=== PATIENT | female | born 1985 | race Hispanic/Latino ===

== ENCOUNTER 2019-08-26 23:51 | Emergency (ER) | payer OTHER | END 2019-08-27 01:00 | disposition home or self-care (01) | LOC: ER 23:51 | PROC: 0JQJ0ZZ Repair Right Hand Subcutaneous Tissue and Fascia, Open Approach (ICD-10-PCS; principal; 2019-08-27) | DX: S61.011A Laceration without foreign body of right thumb without damage to nail, initial encounter (principal); W45.8XXA Other foreign body or object entering through skin, initial encounter; Y93.89 Activity, other specified; Y92.009 Unspecified place in unspecified non-institutional (private) residence as the place of occurrence of the external cause; Z23 Encounter for immunization | CPT/HCPCS: 90471; 90714; 99283 ==

== ENCOUNTER 2020-01-08 23:26 | Inpatient (IN) | payer OTHER, SELFPAY ==
[2020-01-09 00:22] LABS: Urine Blood NEGATIVE (NEG); Urine Glucose NEGATIVE (NEG); Urine Protein NEGATIVE (NEG); Urine Specific Gravity >1.030 (1.005-1.030)
[2020-01-09] MEDS ORDERED: NA CHLORIDE 0.9% 1,000 ML ONE ×2 (00:26→11:57)
[2020-01-09] MEDS ORDERED: ONDANSETRON 4 MG/2 ML VIAL ONE (00:26)
[2020-01-09] MEDS ORDERED: FAMOTIDINE 20 MG/2 ML VIAL IV ONE (00:26)
[2020-01-09] MEDS ORDERED: MORPHINE 4 MG/ML SYR ONE ×2 (00:26→07:37)
[2020-01-09 00:27] LABS: Absolute Lymphocytes (CBC) 2.5 K/uL (0.7-4.9); Basophils % 0.4 % (0-1.3); Hematocrit 38.9 % (36.0-45.0); Lymphocytes % 20.7 % (15.3-44.8); MPV 8.6 fL (7.6-11.3); RBC Red Blood Cell Count 4.89 M/uL (3.86-4.86)
[2020-01-09 00:56] LABS: ALT/SGPT 31 U/L (12-78); AST/SGOT 22 U/L (15-37); Albumin 3.4 g/dL (3.4-5.0); Alkaline Phosphatase 104 U/L (45-117); BUN Blood Urea Nitrogen 11 mg/dL (7-18); Bicarbonate 29 mmol/L (21-32); Bilirubin Direct 0.1 mg/dL (0-0.2); Bilirubin Total 0.3 mg/dL (0.2-1.0); Glucose Level 126 mg/dL (74-106); Lipase 19762 U/L (73-393); Potassium 3.8 mmol/L (3.5-5.1); Protein, Total 7.9 g/dL (6.4-8.2); Sodium Level 139 mmol/L (136-145)
--- NOTE | 2020-01-09 02:30 | EDPHYS ---
Physician Documentation [facility] Name: Feliciano Blair Age: 34 yrs Sex: Female : 1985 Arrival Date: 01/08/2020 Time: 23:29 Bed 14 Private MD: ED Physician Ravi Singer HPI: 01/08 00:10 This 34 yrs old Female presents to ER via Ambulatory with complaints of mh7 Abdominal Pain. 00:10 The patient presents with abdominal pain in the upper abdomen. Onset: The mh7 symptoms/episode began/occurred today. The symptoms radiate to right back. Associated signs and symptoms: Pertinent negatives: nausea, vomiting, and diarrhea, anorexia, blood in stools, chest pain, constipation, diarrhea, dysuria, fever, headache, hematuria, nausea, palpitations, shortness of breath, vaginal discharge, vomiting, vomiting blood. The symptoms are described as intermittent, vague, waxing/waning. Modifying factors: The symptoms are alleviated by nothing, the symptoms are aggravated by food. Severity of pain: At its worst the pain was moderate today, in the emergency department the pain is unchanged. 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 - Social history:: Smoking status: Patient/guardian denies using. ROS: 01/08 00:10 Constitutional: Negative for fever, chills, and weight loss, Eyes: Negative for injury, mh7 pain, redness, and discharge, ENT: Negative for injury, pain, and discharge, Neck: Negative for injury, pain, and swelling, Cardiovascular: Negative for chest pain, palpitations, and edema, Respiratory: Negative for shortness of breath, cough, wheezing, and pleuritic chest pain, : Negative for injury, bleeding, discharge, and swelling, MS/Extremity: Negative for injury and deformity, Skin: Negative for injury, rash, and discoloration, Neuro: Negative for headache, weakness, numbness, tingling, and seizure, Psych: Negative for depression, anxiety, suicide ideation, homicidal ideation, and hallucinations, Allergy/Immunology: Negative for hives, rash, and allergies, Endocrine: Negative for neck swelling, polydipsia, polyuria, polyphagia, and marked weight changes, Hematologic/Lymphatic: Negative for swollen nodes, abnormal bleeding, and unusual bruising. Exam: 00:10 Head/Face: Normocephalic, atraumatic. Neck: Trachea midline, no thyromegaly or masses mh7 palpated, and no cervical lymphadenopathy. Supple, full range of motion without nuchal rigidity, or vertebral point tenderness. No Meningismus. Chest/axilla: Normal chest wall appearance and motion. Nontender with no deformity. No lesions are appreciated. Cardiovascular: Regular rate and rhythm with a normal S1 and S2. No gallops, murmurs, or rubs. Normal PMI, no JVD. No pulse deficits. Respiratory: Lungs have equal breath sounds bilaterally, clear to auscultation and percussion. No rales, rhonchi or wheezes noted. No increased work of breathing, no retractions or nasal flaring. 00:10 Back: No spinal tenderness. No costovertebral tenderness. Full range of motion. Skin: Warm, dry with normal turgor. Normal color with no rashes, no lesions, and no evidence of cellulitis. MS/ Extremity: Pulses equal, no cyanosis. Neurovascular intact. Full, normal range of motion. Neuro: Awake and alert, GCS 15, oriented to person, place, time, and situation. Cranial nerves II-XII grossly intact. Motor strength 5/5 in all extremities. Sensory grossly intact. Cerebellar exam normal. Normal gait. Psych: Awake, alert, with orientation to person, place and time. Behavior, mood, and affect are within normal limits. 00:10 Constitutional: The patient appears in no acute distress, alert, awake, uncomfortable. 00:10 Abdomen/GI: Inspection: obese scar(s), are noted in the epigastric area, Bowel sounds: normal, in all quadrants, Palpation: moderate abdominal tenderness, in the epigastric area and right upper quadrant, Rectal exam: the exam is deferred, because of patient request, Indicators: McBurney's point is not tender, Hanley's sign is negative, Rovsing's sign is negative, Obturator sign is negative, Psoas sign is negative, Liver: no appreciated palpable abnormalities, Hernia: not appreciated. Vital Signs: 01/07 23:43 BP 125 / 66; Pulse 87; Resp 18; Temp 98.2; Pulse Ox 100% ; Weight 104.78 kg; Height 5 wh ft. 5 in. (165.10 cm); Pain 12/28; 01/08 01:17 BP 103 / 61; Pulse 55; Resp 18; Pulse Ox 99% on R/A; wh 02:27 BP 104 / 75; Pulse 47; Resp 18; Pulse Ox 99% on R/A; Pain 05/30; wh 04:00 BP 92 / 57; Pulse 46; Resp 16; Pulse Ox 98% on R/A; Pain 05/30; wh 05:30 BP 103 / 70; Pulse 52; Resp 18; Pulse Ox 99% on R/A; Pain 05/30; wh 01/07 23:43 Body Mass Index 38.44 (104.78 kg, 165.10 cm) wh MDM: 00:10 Patient medically screened. [facility] 02:27 Differential diagnosis: bowel obstruction, cholecystitis, Cholelithiasis, mh7 diverticulitis, Ectopic , gastritis, gastroesophageal reflux disease, non-specific abd pain, pancreatitis, Peptic Ulcer Disease, Perf. Duodenal Ulcer, Perf. Gastric Ulcer, Pyelonephritis, Ureterolithiasis, urinary tract infection. Data reviewed: vital signs, nurses notes, radiologic studies, CT scan. Data interpreted: Pulse oximetry: on room air is 99 %. Interpretation: normal. Counseling: I had a detailed discussion with the patient and/or guardian regarding: the historical points, exam findings, and any diagnostic results supporting the discharge/admit diagnosis, lab results, radiology results, the need for further work-up and treatment in the hospital. Response to treatment: the patient's symptoms have markedly improved after treatment. 01/08 00:07 Order name: Basic Metabolic Panel; Complete Time: 01/08 00:07 Order name: CBC with Diff; Complete Time: 01/08 00:07 Order name: Hepatic Function; Complete Time: wh 01/08 00:07 Order name: Lipase; Complete Time: : wh 01/08 00:09 Order name: Urine --Ancillary (enter results); Complete Time: : tt3 01/08 00:09 Order name: Urine Dipstick--Ancillary (enter results); Complete Time: 01:06 tt3 01/08 00:07 Order name: IV Saline Lock; Complete Time: 00:08 01/08 00:07 Order name: Labs collected and sent; Complete Time: 00:08 01/08 01:07 Order name: CT Abd/Pelvis - IV Contrast Only [facility] 01/08 08:42 Order name: EDMS 01/08 00:07 Order name: Urine Dipstick-Ancillary (obtain specimen); Complete Time: 00:08 01/08 00:07 Order name: Urine Test (obtain specimen); Complete Time: 00:08 Administered Medications: 00:14 Drug: NS 0.9% 1000 ml Route: IV; Rate: 1000 ml; Site: right antecubital; 02:28 Follow up: Response: No adverse reaction; IV Status: Completed infusion 00:16 Drug: morphine 4 mg Route: IVP; Site: right antecubital; 02:28 Follow up: Response: No adverse reaction; Pain is decreased; RASS: Alert and Calm (0) 00:18 Drug: Zofran (Ondansetron) 4 mg Route: IVP; Site: right antecubital; 02:28 Follow up: Response: No adverse reaction 00:20 Drug: Pepcid 20 mg Route: IVP; Site: right antecubital; 02:27 Follow up: Response: No adverse reaction Disposition: 06:44 Co-signature as Attending Physician, Ravi Singer MD. 7 Disposition: 01/09/20 02:29 Hospitalization ordered by Newton Concepcion for Inpatient Admission. Preliminary diagnosis is Acute pancreatitis, unspecified. - Bed requested for Telemetry/MedSurg (Inpatient). - Status is Inpatient Admission. jr10 - Condition is Stable. - Problem is new. - Symptoms have improved. Signatures: Dispatcher [employer] EDMS Tiara Jeter Tonya, RN RN tl1 Andrea Cochran Ravi Singer MD MD 7 Jamila Gregg RN RN jr10 Corrections: (The following items were deleted from the chart) 04:03 02:29 Hospitalization Ordered by Newton Concepcion for Inpatient Admission. Preliminary tl1 diagnosis is Acute pancreatitis, unspecified. Bed requested for Telemetry/MedSurg (Inpatient). Status is Inpatient Admission. Condition is Stable. Problem is new. Symptoms have improved. mh7 13:42 04:03 01/09/2020 02:29 Hospitalization Ordered by Newton Concepcion for Inpatient bd Admission. Preliminary diagnosis is Acute pancreatitis, unspecified. Bed requested for [facility] ER HOLD. Status is Inpatient Admission. Condition is Stable. Problem is new. Symptoms have improved. tl1 14:42 13:42 01/09/2020 02:29 Hospitalization Ordered by Newton Concepcion for Inpatient jr10 Admission. Preliminary diagnosis is Acute pancreatitis, unspecified. Bed requested for Telemetry/MedSurg (Inpatient). Status is Inpatient Admission. Condition is Stable. Problem is new. Symptoms have improved. bd
--- NOTE | 2020-01-09 02:30 | ER ---
Nurse's Notes [facility] Name: Feliciano Blair Age: 34 yrs Sex: Female : 1985 Arrival Date: 01/08/2020 Time: 23:29 Bed 14 Private MD: Diagnosis: Acute pancreatitis, unspecified Presentation: 01/07 23:43 Chief complaint: Patient states: upper abdominal pain going to the back that started wh after dinner tonight. Pt denies chest pain or any other associated symptoms. Coronavirus screen: Client denies travel out of the [place] in the last 14 days. At this time, the client does not indicate any symptoms associated with coronavirus-19. Ebola Screen: Patient negative for fever greater than or equal to 101.5 degrees Fahrenheit, and additional compatible Ebola Virus Disease symptoms Patient denies exposure to infectious person. Initial Sepsis Screen: Does the patient meet any 2 criteria? No. Patient's initial sepsis screen is negative. Does the patient have a suspected source of infection? Yes: Acute abdominal pain. Risk Assessment: Do you want to hurt yourself or someone else? Patient reports no desire to harm self or others. Onset of symptoms was January 08, 2020. 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 - Social history:: Smoking status: Patient/guardian denies using. Screenin:46 Abuse screen: Denies threats or abuse. Denies injuries from another. Nutritional screening: No deficits noted. Tuberculosis screening: No symptoms or risk factors identified. Fall Risk None identified. Assessment: 23:47 General: Appears in no apparent distress. uncomfortable, Behavior is calm, cooperative, wh appropriate for age. Pain: Complains of pain in epigastric area and right upper quadrant Pain radiates to back Pain currently is 8 out of 10 on a pain scale. Quality of pain is described as pressure, Pain began 4 hours ago. Neuro: Level of Consciousness is awake, alert, obeys commands, Oriented to person, place, time, situation, Appropriate for age. Cardiovascular: Heart tones S1 S2. Respiratory: Airway is patent Respiratory effort is even, unlabored, Respiratory pattern is regular, symmetrical, Breath sounds are clear bilaterally. GI: Abdomen is flat, non-distended, Bowel sounds present X 4 quads. Abd is soft Abdomen is tender to palpation in epigastric area and right upper quadrant. : No signs and/or symptoms were reported regarding the genitourinary system. EENT: No signs and/or symptoms were reported regarding the EENT system. Derm: Skin is intact, is healthy with good turgor, Skin is pink, warm \T\ dry. normal. Musculoskeletal: Circulation, motion, and sensation intact. 01/08 01:18 Reassessment: Patient appears in no apparent distress at this time. No changes from previously documented assessment. Patient and/or family updated on plan of care and expected duration. Pain level reassessed. Patient is alert, oriented x 3, equal unlabored respirations, skin warm/dry/pink. Patient states feeling better. Patient states symptoms have improved. 02:26 Reassessment: Patient appears in no apparent distress at this time. No changes from previously documented assessment. Patient and/or family updated on plan of care and expected duration. Pain level reassessed. Patient is alert, oriented x 3, equal unlabored respirations, skin warm/dry/pink. Provider at bedside explaining POC need for admit. Pt states low heart rate is normal for her. 04:00 Reassessment: Patient appears in no apparent distress at this time. No changes from previously documented assessment. Patient and/or family updated on plan of care and expected duration. Pain level reassessed. Patient is alert, oriented x 3, equal unlabored respirations, skin warm/dry/pink. 05:30 Reassessment: Patient appears in no apparent distress at this time. No changes from previously documented assessment. Patient and/or family updated on plan of care and expected duration. Pain level reassessed. Patient is alert, oriented x 3, equal unlabored respirations, skin warm/dry/pink. ER MD was notified regarding low heart rate with no orders made Patient states feeling better. Patient states symptoms have improved. Vital Signs: 01/07 23:43 BP 125 / 66; Pulse 87; Resp 18; Temp 98.2; Pulse Ox 100% ; Weight 104.78 kg; Height 5 wh ft. 5 in. (165.10 cm); Pain 8/10; 01/08 01:17 BP 103 / 61; Pulse 55; Resp 18; Pulse Ox 99% on R/A; 02:27 BP 104 / 75; Pulse 47; Resp 18; Pulse Ox 99% on R/A; Pain 1/10; 04:00 BP 92 / 57; Pulse 46; Resp 16; Pulse Ox 98% on R/A; Pain 1/10; 05:30 BP 103 / 70; Pulse 52; Resp 18; Pulse Ox 99% on R/A; Pain 1/10; wh 01/07 23:43 Body Mass Index 38.44 (104.78 kg, 165.10 cm) ED Course: 01/07 23:29 Patient arrived in ED. [facility] 23:43 Andrea Cochran is Primary Nurse. 23:45 Triage completed. 23:49 Arm band placed on right wrist. 23:49 Patient has correct armband on for positive identification. Placed in gown. Bed in low wh position. Call light in reach. Side rails up X 1. Pulse ox on. NIBP on. 23:50 Inserted saline lock: 20 gauge in right antecubital area, using aseptic technique. Blood collected. 23:55 Ravi Singer MD is Attending Physician. [facility] 01/08 01:47 CT Abd/Pelvis - IV Contrast Only In Process Unspecified. EDDC 02:29 Newton Concepcion is Hospitalizing Provider. [facility] 04:05 Patient admitted, IV remains in place. 04:05 No provider procedures requiring assistance completed. Administered Medications: 00:14 Drug: NS 0.9% 1000 ml Route: IV; Rate: 1000 ml; Site: right antecubital; 02:28 Follow up: Response: No adverse reaction; IV Status: Completed infusion 00:16 Drug: morphine 4 mg Route: IVP; Site: right antecubital; 02:28 Follow up: Response: No adverse reaction; Pain is decreased; RASS: Alert and Calm (0) 00:18 Drug: Zofran (Ondansetron) 4 mg Route: IVP; Site: right antecubital; 02:28 Follow up: Response: No adverse reaction 00:20 Drug: Pepcid 20 mg Route: IVP; Site: right antecubital; 02:27 Follow up: Response: No adverse reaction Outcome: 02:29 Decision to Hospitalize by Provider. [facility] 04:05 Admitted to ER Hold. Please see [facility] for further documentation. 04:05 Condition: stable 04:05 Instructed on the need for admit. 14:42 Patient left the ED. jr10 Signatures: Dispatcher [employer] EDMS Andrea Cochran Razia West Maurice, MD MD mh7 Jamila Gregg RN RN jr10 Corrections: (The following items were deleted from the chart) 02:27 01:17 BP 136 / 1; Pulse 55bpm; Resp 18bpm; Pulse Ox 99% RA; [facility] 05:46 02:26 Reassessment: Patient appears in no apparent distress at this time. No changes wh from previously documented assessment. Patient and/or family updated on plan of care and expected duration. Pain level reassessed. Patient is alert, oriented x 3, equal unlabored respirations, skin warm/dry/pink. Provider at bedside explaining POC need for admit 05:46 02:27 BP 104 / 75; Pulse 47bpm; Resp 18bpm; Pulse Ox 99% RA; [facility] 05:46 01:17 BP 103 / 61; Pulse 55bpm; Resp 18bpm; Pulse Ox 99% RA; [facility] 05:46 04:00 BP 92 / 57; Pulse 46bpm; Resp 16bpm; Pulse Ox 98%; [facility] 06:09 05:30 Reassessment: Patient appears in no apparent distress at this time. No changes wh from previously documented assessment. Patient and/or family updated on plan of care and expected duration. Pain level reassessed. Patient is alert, oriented x 3, equal unlabored respirations, skin warm/dry/pink. Patient states feeling better. Patient states symptoms have improved.
--- NOTE | 2020-01-09 03:10 | P.HP ---
Certification for Inpatient Patient admitted to: Inpatient With expected LOS: >2 Midnights Patient will require the following post-hospital care: None Practitioner: I am a practitioner with admitting privileges, knowledge of patient current condition, hospital course, and medical plan of care. Services: Services provided to patient in accordance with Admission requirements found in Title 42 Section 412.3 of the Code of Federal Regulations Patient History Date of Service: 01/09/20 Primary Care Provider: [facility] Reason for admission: Acute pancreatitis History of Present Illness: 34-year-old female presents emergency for epigastric pain that began after eating lasagna. Patient with history of gastric sleeve in October of this year. Patient reports she has not been eating carbs since then but tonight for the 1st time he had some lasagna. During her evaluation in the emergency department patient was found to have elevated lipase at 19,000. CT scan shows some possible trace pericholecystic fluid but no stones or other signs of cholecystitis. LFTs all within normal limits, T. bili and d bili within normal limits. Patient does report that up until 2 years ago she was a heavy drinker. ED provider wishes to admit patient for further evaluation management. When I saw the patient in the emergency department she is awake, alert, oriented x4. Patient reports that morphine did help while the pain and she is only feeling some pressure now. Patient reports pain radiates to back. While ex amining patient in the emergency department she did not have any right upper quadrant tenderness, Hanley sign negative. Patient be admitted for further evaluation and management. Allergies No Known Drug Allergies Allergy (Unverified 01/29/15 08:49) Unknown - Past Medical/Surgical History Past Medical History: Patient denies medical history -: Gastric sleeve Psychosocial/ Personal History: Patient lives at home with her and children is currently unemployed. - Family History Father -: Diabetes Mother -: Diabetes - Social History Smoking Status: Never smoker Alcohol use: No CD- Drugs: No Caffeine use: Yes Place of Residence: Home Review of Systems 10-point ROS is otherwise unremarkable Gastrointestinal: Abdominal Pain Physical Examination - Physical Exam General: Alert, In no apparent distress HEENT: Atraumatic, PERRLA, Mucous membr. moist/pink Neck: Supple Respiratory: Clear to auscultation bilaterally, Normal air movement Cardiovascular: Regular rate/rhythm, Normal S1 S2 Capillary refill: <2 Seconds Gastrointestinal: Normal bowel sounds, No rebound, No guarding, Other (Hanley sign negative), Tenderness (Epigastric tenderness that is mild) Musculoskeletal: No tenderness Integumentary: No rashes Neurological: Normal gait, Normal speech, Normal strength at 5/5 x4 extr, Normal tone, Normal affect - Studies Laboratory Data (last 24 hrs) 01/09/20 00:01: WBC 12.0 H, Hgb 12.5, Hct 38.9, Plt Count 424 H 01/09/20 00:01: Sodium 139, Potassium 3.8, BUN 11, Creatinine 0.68, Glucose 126 H, Total Bilirubin 0.3, AST 22, ALT 31, Alkaline Phosphatase 104, Lipase 21353 H Assessment and Plan - Plan Assessment Acute pancreatitis Plan Acute pancreatitis: Patient made to be NPO. Aggressive hydration. Continue with IV pain medication and nausea medication as needed. Will order ultrasound to rule out biliary pancreatitis. Lipid panel also ordered. Suspect this is related to her history of alcohol abuse and cessation from ED carbohydrates with recent carbohydrate intake. Anticipate clinical improvement next 24-48 hr at which time patient to be discharged. DVT prophylaxis with Lovenox 40 mg subcutaneous once daily. Discharge Plan: Home Plan to discharge in: 48 Hours - Advance Directives Does patient have a Living Will: No Does patient have a Durable POA for Healthcare: No - Code Status/Comfort Care Code Status Assessed: Yes (Patient is full code) Critical Care: No Time Spent Managing Pts Care (In Minutes): 55
[2020-01-09] MEDS: NA CHLORIDE 0.9% 1,000 ML IV SCH ×3 (04:07→21:56)
[2020-01-09] MEDS ORDERED: ONDANSETRON 4 MG/2 ML VIAL IV PRN (04:07)
[2020-01-09 04:10] VITALS: BMI 38.4
[2020-01-09] MEDS ORDERED: ENOXAPARIN 40 MG/0.4 ML SQ ONE (07:38)
[2020-01-09] MEDS: MORPHINE 4 MG/ML SYR IV PRN ×2 (08:00→17:31)
--- NOTE | 2020-01-09 08:41 | RAD REPORT ---
EXAM DESCRIPTION: US - Abdomen Exam Limited - 01/09/2020 7:18 am CLINICAL HISTORY: R/O cholecystits/cholelithiasis Abdominal pain COMPARISON: Abdomen Pelvis W Contrast dated 01/09/2020 FINDINGS: The gallbladder demonstrates several shadowing gallstones. Gallbladder wall is mildly thic kened measuring 4-5 mm. The common bile duct is normal measuring 4 mm. The liver demonstrates no findings of intrahepatic biliary dilatation. IMPRESSION: Cholelithiasis is noted with mild gallbladder wall thickening. Early cholecystitis is a possibility, and correlation clinical Hanley's sign is suggested.
[2020-01-09] MEDS: ENOXAPARIN 40 MG/0.4 ML SQ SCH (08:49)
--- NOTE | 2020-01-09 10:55 | RAD REPORT ---
EXAM DESCRIPTION: CT Abdomen Pelvis W Contrast CLINICAL HISTORY: 34 years Female ABD PAIN TECHNIQUE: Contiguous axial images obtained through the abdomen and pelvis following intravenous con trast administration. Coronal and sagittal reformatted images provided. This CT exam was performed according to our departmental dose-optimization program, which includes on e or more of the following dose reduction techniques: automated exposure control, adjustment of the m A and/or kV according to patient size, and/or use of iterative reconstruction technique. COMPARISON: No prior exams provided for comparison. FINDINGS: There appears to be slight pericholecystic inflammation. No visualized gallstone or biliar y dilatation. There is a 2.2 cm right ovarian cyst. Normal left ovary and uterus. No free fluid in the cul-de-sac. Minimal left basilar atelectasis. Focal fatty infiltration of the liver along the falciform ligament. The pancreas, spleen, adrenal glands, kidneys, and urinary bladder are normal. Prior gastric sleeve surgery. No visualized bowel inflammation, obstruction, pneumatosis, free intrap eritoneal air, abscess, or ascites. Normal appendix. No acute osseous abnormality. IMPRESSION: Suspected slight pericholecystic inflammation. Correlate with LFTs and physical exam and consider further evaluation with right upper quadrant ultrasound. Small right ovarian cyst does not require follow-up. Electronically signed by: Peggy Bryant MD 01/09/2020 2:01 AM CDT Due to temporary technical issues with the PACS/Fluency reporting system, reports are being signed by the in house radiologist without review as a courtesy to ensure prompt reporting. The interpreting r adiologist is fully responsible for the content of the report.
--- NOTE | 2020-01-09 14:02 | P.PN ---
Date of Service: 01/09/20 Patient states her abdominal pain is better today. Right upper quadrant sonogram is reporting cholelithiasis and early cholecystitis. Borderline low blood pressure noted. Acute pancreatitis Acute Cholecystitis Cholelithiasis History of gastric sleeve surgery. Plan: IV hydration with normal saline. Pain management as needed. Consult general surgery requested. Keep NPO today. Check daily lipase level.
--- NOTE | 2020-01-09 21:36 | RAD REPORT ---
EXAM DESCRIPTION: MRICholangiogram01/09/2020 8:24 pm CLINICAL HISTORY: Abdominal pain TECHNIQUE: Magnetic resonance cholangiogram was performed.3D MIP reconstruction performed FINDINGS: A filling defect within gallbladder likely cholelithiasis. Gallbladder is borderline diste nded. The biliary tree is normal caliber without a filling defect. Pancreatic duct is normal caliber IMPRESSION: Filling defect within the gallbladder probably cholelithiasis. Borderline gallbladder di stention
[2020-01-10] MEDS: MORPHINE 4 MG/ML SYR IV PRN (01:06)
[2020-01-10] MEDS: NA CHLORIDE 0.9% 1,000 ML IV SCH ×2 (04:23→12:00)
[2020-01-10] MEDS: PANTOPRAZOLE 40 MG INJ IVP SCH (05:02)
[2020-01-10 06:12] LABS: Absolute Lymphocytes (CBC) 2.2 K/uL (0.7-4.9); Basophils % 0.4 % (0-1.3); Hematocrit 32.1 % (36.0-45.0); Lymphocytes % 31.8 % (15.3-44.8); MPV 8.3 fL (7.6-11.3); RBC Red Blood Cell Count 4.03 M/uL (3.86-4.86)
[2020-01-10 06:29] LABS: ALT/SGPT 21 U/L (12-78); AST/SGOT 17 U/L (15-37); Albumin 2.4 g/dL (3.4-5.0); Alkaline Phosphatase 78 U/L (45-117); BUN Blood Urea Nitrogen 7 mg/dL (7-18); Bicarbonate 28 mmol/L (21-32); Bilirubin Total 0.2 mg/dL (0.2-1.0); Glucose Level 83 mg/dL (74-106); HDL Cholesterol 35 mg/dL (40-60); LDL Cholesterol, Calculated 88 (<130); Lipase 140 U/L (73-393); Magnesium 1.9 mg/dL (1.8-2.4); Potassium 3.7 mmol/L (3.5-5.1); Protein, Total 6.1 g/dL (6.4-8.2); Sodium Level 140 mmol/L (136-145)
[2020-01-10] MEDS ORDERED: KCL 20 MEQ/100 mL IVPB 20 MEQ/100 ML BAG IV SCH (09:00)
[2020-01-10] MEDS: ENOXAPARIN 40 MG/0.4 ML SQ SCH (09:05)
--- NOTE | 2020-01-10 11:37 | P.PN ---
Subjective Date of Service: 01/10/20 Primary [facility] Provider: [facility] Chief Complaint: Acute pancreatitis Patient is doing better today. Her only complaint is back pain. Serum lipase level has normalized. She denies any abdominal pain. Physical Examination - Vital Signs Temperature: 97 F Blood Pressure: 112/64 Pulse: 66 Respirations: 16 Pulse Ox (%): 99 - Physical Exam General: Alert, In no apparent distress, Obese HEENT: Mucous membr. moist/pink Respiratory: Clear to auscultation bilaterally, Normal air movement Cardiovascular: No edema, Regular rate/rhythm, Normal S1 S2 Gastrointestinal: Normal bowel sounds, Soft and benign, Non-distended, No tenderness Musculoskeletal: No swelling Integumentary: No rashes Neurological: Other (Nonfocal) Assessment And Plan - Current Problems (Diagnosis) (1) Acute pancreatitis Current Visit: Yes Status: Acute (2) History of gastric surgery Current Visit: Yes Status: Acute (3) Cholelithiasis Current Visit: Yes Status: Acute (4) Obesity Current Visit: Yes Status: Acute - Plan Case discussed with general surgery-Dr. Lal. Lipase level has on unusually rapidly normalized. Trial of clear liquid diet today, if patient does well, may discharge for further oupatient evaluation for cholecystectomy. Continue IV hydration.
--- NOTE | 2020-01-10 19:07 | PN ---
Date of Progress Note: 01/10/2020 Reason For Service: Pancreatitis. Subjective: This is a case of a 34-year-old patient to have [place] gastric [place], came today after eating some heavy lasagna with abdominal pain. Very high lip ase. Today patient feels better. Patient was seen yesterday by me, but today she feels better. Epi gastric tenderness is too minimum. She is hungry. Objective: Chest: Clear. Abdomen: Soft and depressible. No guarding or rebound. Laboratory Data: Blood work shows now almost normal lipase compared with very high yesterday. The r est of the test was discussed with the patient including the MRI. Assessment/plan: Plan: We are going to start full liquid diet and see how she does there. She unde rstands her limitations in understand a low-fat diet as she has to be. We prefer her to have complet e resolution of stomach inflammation and also pancreatitis and electively she may need a laparoscopic cholecystectomy. JONAS/ALLISON Voice ID: [id number] Report ID: [id number]
[2020-01-11] MEDS: NA CHLORIDE 0.9% 1,000 ML IV SCH (02:16)
[2020-01-11 06:32] LABS: ALT/SGPT 18 U/L (12-78); AST/SGOT 15 U/L (15-37); Albumin 2.5 g/dL (3.4-5.0); Alkaline Phosphatase 82 U/L (45-117); BUN Blood Urea Nitrogen 2 mg/dL (7-18); Bicarbonate 28 mmol/L (21-32); Bilirubin Total 0.2 mg/dL (0.2-1.0); Glucose Level 80 mg/dL (74-106); Lipase 78 U/L (73-393); Magnesium 1.9 mg/dL (1.8-2.4); Potassium 3.7 mmol/L (3.5-5.1); Protein, Total 6.3 g/dL (6.4-8.2); Sodium Level 141 mmol/L (136-145)
[2020-01-11] MEDS: PANTOPRAZOLE 40 MG INJ IVP SCH (08:52)
[2020-01-11] MEDS: ENOXAPARIN 40 MG/0.4 ML SQ SCH (08:52)
[2020-01-11] MEDS ORDERED: POTASSIUM CL SA 10 MEQ TAB PO ONE (09:00)
[2020-01-11 10:23] VITALS: BP 111/62; TEMP 97
[2020-01-11 10:47] VITALS: O2SAT 95
--- NOTE | 2020-01-11 11:45 | P.DS ---
Admission Date: 01/09/20 Discharge Date: 01/11/20 Primary Care Provider: [facility] Disposition: ROUTINE DISCHARGE Discharge Condition: FAIR Reason for Admission: Acute pancreatitis - Problems (1) Acute pancreatitis Current Visit: Yes Status: Acute (2) History of gastric surgery Current Visit: Yes Status: Acute (3) Cholelithiasis Current Visit: Yes Status: Acute (4) Obesity Current Visit: Yes Status: Acute Brief History of Present Illness: 34-year-old woman with a history of morbid obesity status post gastric sleeve surgery in October 2019 presented emergency department with a complaint of sudden onset of abdominal pain after eating a carbohydrate diet. Blood work in the ED suggested acute pancreatitis with severely elevated lipase. CT abdomen and pelvis confirm acute pancreatitis. Patient was admitted for further management. Hospital Course: Patient admitted to the medical floor and started on IV antibiotics and supportive measures including IV hydration. She was kept NPO for the 1st 24 hrs. Liver ultrasound performed showed several gallstones in the gallbladder and mild gallbladder wall thickening. Patient was seen and evaluated by general surgery. Her lipase level normalized within 24 hrs. General surgery recommended elective cholecystectomy. Patient is currently asymptomatic and clinically stable. She tolerated diet advancement to liquid diet. She is discharged to follow with General Surgery as an outpatient for elective cholecystectomy. Vital Signs/Physical Exam: Temp Pulse Resp BP Pulse Ox 97 F 49 L 16 111/62 95 01/11/20 08:00 01/11/20 08:00 01/11/20 08:00 01/11/20 08:00 01/11/20 08:00 General: Alert, In no apparent distress, Obese HEENT: Mucous membr. moist/pink Neck: Supple, JVD not distended, No Thyromegaly Respiratory: Clear to auscultation bilaterally, Normal air movement Cardiovascular: No edema, Regular rate/rhythm, Normal S1 S2 Gastrointestinal: Normal bowel sounds, Soft and benign, No tenderness Musculoskeletal: No swelling, No erythema Integumentary: No rashes Neurological: Other (Nonfocal) Laboratory Data at Discharge: WBC 7.1 K/uL (4.3-10.9) D 01/10/20 05:30 Hgb 10.5 g/dL (12.0-15.0) L 01/10/20 05:30 Hct 32.1 % (36.0-45.0) L D 01/10/20 05:30 Plt Count 317 K/uL (152-406) D 01/10/20 05:30 Sodium 141 mmol/L (136-145) 01/11/20 05:27 Potassium 3.7 mmol/L (3.5-5.1) 01/11/20 05:27 BUN 2 mg/dL (7-18) L 01/11/20 05:27 Creatinine 0.48 mg/dL (0.55-1.3) L 01/11/20 05:27 Glucose 80 mg/dL (74-106) 01/11/20 05:27 Magnesium 1.9 mg/dL (1.8-2.4) 01/11/20 05:27 Total Bilirubin 0.2 mg/dL (0.2-1.0) 01/11/20 05:27 AST 15 U/L (15-37) 01/11/20 05:27 ALT 18 U/L (12-78) 01/11/20 05:27 Alkaline Phosphatase 82 U/L (45-117) 01/11/20 05:27 Triglycerides 82 mg/dL (<150) 01/10/20 05:30 Cholesterol 139 mg/dL (<200) 01/10/20 05:30 HDL Cholesterol 35 mg/dL (40-60) L 01/10/20 05:30 Cholesterol/HDL Ratio 3.97 01/10/20 05:30 Lipase 78 U/L (73-393) 01/11/20 05:27 Home Medications: Amox/Clavulanate [Augmentin 875-125 Tab] 875 mg PO BID #10 tab 01/11/20 New Medications: Amox/Clavulanate [Augmentin 875-125 Tab] 875 mg PO BID #10 tab Diet: Advance to soft diet. Activity: Ad soni Followup: Marcel Lal MD [ACTIVE - CAN ADMIT] - 1-2 Weeks Time spent managing pt's care (in minutes): 36
--- NOTE | 2020-01-11 12:54 | PN ---
Date of Progress Note: 01/11/2020 Diagnosis: Pancreatitis. Subjective: The patient is doing better. No abdominal pain. No epigastric pain. Tolerating diet, passing flatus. Objective: Abdomen: Soft and depressible. No guarding or rebound. Extremities: Good capillary refill. Plan: The patient will be discharged from the surgical standpoint. She will follow up with her bret roenterologist for evaluation. Also, we advised her to see her surgeons to once again give her some advice about her disease. She also understands she may have to have the gallbladder removed elective ly if this continued happening. I advised her she can also follow up in my office. JONAS/ALLISON Voice ID: [id number] Report ID: [id number]
== END 2020-01-11 12:16 | disposition home or self-care (01) | DRG 439 ==
LOC: ER 23:26 → ERHOLD 01-09 02:38 → 2ND 01-09 14:18
PROVIDERS: ADMIT Internal Medicine; ATTEND Internal Medicine
DX: K85.90 Acute pancreatitis without necrosis or infection, unspecified (principal); K80.00 Calculus of gallbladder with acute cholecystitis without obstruction; E66.9 Obesity, unspecified; Z68.38 Body mass index [BMI] 38.0-38.9, adult; Z90.3 Acquired absence of stomach [part of]; Z11.59 Encounter for screening for other viral diseases
CPT/HCPCS: 36415; 74177; 74181; 76705; 80048; 80053; 80061; 80076; 81003; 81025; 83690; 83735; 85025; 96361; 96374; 96375; 99285; C9113; J1650; J2405; J3480; J7030; Q9967; U0002

== ENCOUNTER 2020-02-05 13:31 | Emergency (ER) | payer SELFPAY ==
[2020-02-05 15:08] LABS: Absolute Lymphocytes (CBC) 1.4 K/uL (0.7-4.9); Basophils % 0.3 % (0-1.3); Hematocrit 39.7 % (36.0-45.0); Lymphocytes % 13.5 % (15.3-44.8); MPV 8.6 fL (7.6-11.3); RBC Red Blood Cell Count 4.99 M/uL (3.86-4.86)
[2020-02-05 15:23] LABS: ALT/SGPT 66 U/L (12-78); AST/SGOT 60 U/L (15-37); Albumin 3.4 g/dL (3.4-5.0); Alkaline Phosphatase 181 U/L (45-117); BUN Blood Urea Nitrogen 14 mg/dL (7-18); Bicarbonate 29 mmol/L (21-32); Bilirubin Direct 0.2 mg/dL (0-0.2); Bilirubin Total 0.4 mg/dL (0.2-1.0); Glucose Level 92 mg/dL (74-106); Lipase 3008 U/L (73-393); Protein, Total 7.9 g/dL (6.4-8.2); Sodium Level 142 mmol/L (136-145)
[2020-02-05 15:27] LABS: Urine Blood NEGATIVE (NEG); Urine Glucose NEGATIVE (NEG); Urine Protein 2+ (NEG); Urine Specific Gravity >1.030 (1.005-1.030); Urine pH 6.5 (5.0-7.0)
[2020-02-05 15:54] LABS: Urine Bacteria <20 /HPF (<20); Urine Culture Reflex Order NOT NEEDED; Urine Mucus 2+ /HPF (NONE SEEN); Urine RBC <5 /HPF (NONE SEEN)
[2020-02-05] MEDS ORDERED: MORPHINE 4 MG/ML SYR ONE (16:39)
[2020-02-05] MEDS ORDERED: ONDANSETRON 4 MG/2 ML VIAL ONE (16:40)
--- NOTE | 2020-02-05 16:56 | ER ---
Nurse's Notes [facility] Name: Feliciano Blair Age: 34 yrs Sex: Female : 1985 Arrival Date: 02/05/2020 Time: 13:34 Bed 20 Private MD: Diagnosis: Abdominal and pelvic pain Presentation: 02/04 13:47 Chief complaint: Patient states: epigastric pain that started this morning with N/V, em denies diarrhea, was seen last month for similar pain and diagnosis with pancreatitis, denies fever. Coronavirus screen: Client denies travel out of the [place] in the last 14 days. Ebola Screen: Patient negative for fever greater than or equal to 101.5 degrees Fahrenheit, and additional compatible Ebola Virus Disease symptoms Patient denies exposure to infectious person. Patient denies travel to an Ebola-affected area in the 21 days before illness onset. No symptoms or risks identified at this time. Initial Sepsis Screen: Does the patient meet any 2 criteria? HR > 90 bpm. No. Patient's initial sepsis screen is negative. Does the patient have a suspected source of infection? No. Patient's initial sepsis screen is negative. Risk Assessment: Do you want to hurt yourself or someone else? Patient reports no desire to harm self or others. Onset of symptoms was February 05, 2020. 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 - Social history:: Smoking status: Patient denies any tobacco usage or history of. Vital Signs: 13:47 BP 121 / 76; Pulse 96; Resp 18; Temp 97.2; Pulse Ox 100% on R/A; Weight 99.79 kg; em Height 5 ft. 5 in. (165.10 cm); Pain 10/10; 13:47 Body Mass Index 36.61 (99.79 kg, 165.10 cm) em ED Course: 13:34 Patient arrived in ED. mr 13:48 Triage completed. em 13:49 Arm band placed on. em 14:28 Jessica Jalloh, RN is Primary Nurse. ls4 14:34 Judd Avila MD is Attending Physician. kdr Administered Medications: 16:42 Drug: morphine 4 mg Route: IVP; Site: left antecubital; ls4 16:56 Drug: Zofran (Ondansetron) 4 mg Route: IVP; Site: left antecubital; ls4 Outcome: 16:55 Discharge ordered by . kdr 17:33 Patient left the ED. ls4 Signatures: Judd Avila MD MD [facility] Bia Gregg Edgar, RN RN Jessica Jalloh, RICHARD RN ls4
--- NOTE | 2020-02-05 16:56 | EDPHYS ---
Physician Documentation [facility] Name: Feliciano Blair Age: 34 yrs Sex: Female : 1985 Arrival Date: 02/05/2020 Time: 13:34 Bed 20 Private MD: ED Physician Judd Avila HPI: 02/05 08:16 This 34 yrs old Female presents to ER via Ambulatory with complaints of kdr Abdominal Pain, Back Pain. 08:16 The patient presents with pain that is acute, with no known mechanism of injury. kdr 09:26 The patient presents with abdominal pain in the epigastric area, in the upper abdomen. kdr Onset: The symptoms/episode began/occurred suddenly, this morning. The symptoms radiate to right back. Associated signs and symptoms: Pertinent positives: nausea and vomiting, Pertinent negatives: chest pain, constipation, diarrhea, palpitations, shortness of breath. The symptoms are described as achy, constant, dull. Modifying factors: The symptoms are alleviated by nothing, the symptoms are aggravated by food. Severity of pain: At its worst the pain was moderate severe just prior to arrival, in the emergency department the pain is unchanged. The patient has experienced similar episodes in the past, several times. The patient has not recently seen a physician. 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 - Social history:: Smoking status: Patient denies any tobacco usage or history of. ROS: 02/05 09:26 Constitutional: Negative for fever, chills, and weight loss, Eyes: Negative for injury, kdr pain, redness, and discharge, ENT: Negative for injury, pain, and discharge, Neck: Negative for injury, pain, and swelling, Cardiovascular: Negative for chest pain, palpitations, and edema, Respiratory: Negative for shortness of breath, cough, wheezing, and pleuritic chest pain, Back: Negative for injury and pain, : Negative for injury, bleeding, discharge, and swelling, MS/Extremity: Negative for injury and deformity, Skin: Negative for injury, rash, and discoloration, Neuro: Negative for headache, weakness, numbness, tingling, and seizure activity. Psych: Negative for depression, anxiety, suicide ideation, homicidal ideation, and hallucinations, Allergy/Immunology: Negative for hives, rash, and allergies, Endocrine: Negative for neck swelling, polydipsia, polyuria, polyphagia, and marked weight changes, Hematologic/Lymphatic: Negative for swollen nodes, abnormal bleeding, and unusual bruising. Abdomen/GI: Positive for abdominal pain, nausea and vomiting. Exam: 09:30 Constitutional: This is a well developed, well nourished patient who is awake, alert, kdr and in no acute distress. Head/Face: Normocephalic, atraumatic. Eyes: Pupils equal round and reactive to light, extra-ocular motions intact. Lids and lashes normal. Conjunctiva and sclera are non-icteric and not injected. Cornea within normal limits. Periorbital areas with no swelling, redness, or edema. Neck: Trachea midline, no thyromegaly or masses palpated, and no cervical lymphadenopathy. Supple, full range of motion without nuchal rigidity, or vertebral point tenderness. No Meningismus. Chest/axilla: Normal chest wall appearance and motion. Nontender with no deformity. No lesions are appreciated. Cardiovascular: Regular rate and rhythm with a normal S1 and S2. No gallops, murmurs, or rubs. Normal PMI, no JVD. No pulse deficits. Respiratory: Lungs have equal breath sounds bilaterally, clear to auscultation and percussion. No rales, rhonchi or wheezes noted. No increased work of breathing, no retractions or nasal flaring. Back: No spinal tenderness. No costovertebral tenderness. Full range of motion. Skin: Warm, dry with normal turgor. Normal color with no rashes, no lesions, and no evidence of cellulitis. MS/ Extremity: Pulses equal, no cyanosis. Neurovascular intact. Full, normal range of motion. Neuro: Awake and alert, GCS 15, oriented to person, place, time, and situation. Cranial nerves II-XII grossly intact. Motor strength 5/5 in all extremities. Sensory grossly intact. Cerebellar exam normal. Normal gait. Psych: Awake, alert, with orientation to person, place and time. Behavior, mood, and affect are within normal limits. 09:30 Abdomen/GI: Inspection: abdomen appears normal, obese Bowel sounds: active, diminished, in all quadrants, Palpation: soft, mild abdominal tenderness, in the epigastric area and right upper quadrant. Vital Signs: 02/04 13:47 BP 121 / 76; Pulse 96; Resp 18; Temp 97.2; Pulse Ox 100% on R/A; Weight 99.79 kg; em Height 5 ft. 5 in. (165.10 cm); Pain 10/10; 13:47 Body Mass Index 36.61 (99.79 kg, 165.10 cm) em MDM: 16:55 Patient medically screened. kdr 02/05 09:26 Data reviewed: vital signs, nurses notes, lab test result(s), radiologic studies. kdr Counseling: I had a detailed discussion with the patient and/or guardian regarding: the historical points, exam findings, and any diagnostic results supporting the discharge/admit diagnosis, lab results, the need for outpatient follow up. ED course: The patient felt much better with the interventions given and did not want any further radiology studies or medication. She was discharged in good condition and happy with the care provided. 02/04 14:31 Order name: Basic Metabolic Panel; Complete Time: 16:45 4 02/04 14:31 Order name: CBC with Diff; Complete Time: 16:45 4 02/04 14:31 Order name: Hepatic Function; Complete Time: 16:45 4 02/04 14:31 Order name: Lipase; Complete Time: 16:45 4 02/04 15:11 Order name: Urine Microscopic Only; Complete Time: 16:45 [facility] 02/04 15:12 Order name: Urine Dipstick--Ancillary (enter results); Complete Time: 16:45 em1 02/04 14:31 Order name: IV Saline Lock; Complete Time: 15:11 4 02/04 14:31 Order name: Labs collected and sent; Complete Time: 15:11 [facility] 02/04 15:12 Order name: Urine --Ancillary (enter results); Complete Time: 16:45 em1 Administered Medications: 02/04 16:42 Drug: morphine 4 mg Route: IVP; Site: left antecubital; ls4 16:56 Drug: Zofran (Ondansetron) 4 mg Route: IVP; Site: left antecubital; ls4 Disposition: 02/05/20 16:55 Discharged to Home. Impression: Abdominal and pelvic pain. - Condition is Stable. - Discharge Instructions: Abdominal Pain, Adult, [id number]. - Prescriptions for Pepcid 20 mg Oral Tablet - take 1 tablet by ORAL route every 12 hours for 5 days; 10 tablet. Tramadol 50 mg Oral Tablet - take 1 tablet by ORAL route every 8 hours as needed; 12 tablet. promethazine 25 mg Oral Tablet - take 1 tablet by ORAL route every 6 hours As needed; 20 tablet. - Medication Reconciliation Form, Thank You Letter, Prescription Opioid Use form. - Follow up: Private Physician; When: 1 - 2 days; Reason: If symptoms return, Further diagnostic work-up, Recheck today's complaints, Continuance of care, Re-evaluation by your physician. - Problem is an acute exacerbation. - Symptoms have improved. Signatures: Dispatcher [employer] [facility] Judd Avila MD MD kdr Munoz, Edgar, RN RN em Jessica Jalloh RN RN ls4 Corrections: (The following items were deleted from the chart) 17:03 16:40 Abdomen Pelvis W Con+CT.RAD.BRZ ordered. [facility] 17:33 16:55 02/05/2020 16:55 Discharged to Home. Impression: Abdominal and pelvic pain. ls4 Condition is Stable. Forms are Medication Reconciliation Form, Thank You Letter, Antibiotic Education, Prescription Opioid Use. Follow up: Private Physician; When: 1 - 2 days; Reason: If symptoms return, Further diagnostic work-up, Recheck today's complaints, Continuance of care, Re-evaluation by your physician. Problem is an acute exacerbation. Symptoms have improved. kdr
[2020-02-05 19:23] VITALS: BP 121/76; TEMP 97.2; O2SAT 100
== END 2020-02-05 17:33 | disposition home or self-care (01) ==
LOC: ER 13:31
DX: R10.2 Pelvic and perineal pain (principal); R11.2 Nausea with vomiting, unspecified
CPT/HCPCS: 36415; 80048; 80076; 81003; 81015; 81025; 83690; 85025; 96374; 96375; 99282; J2405

== ENCOUNTER 2020-02-14 10:23 | Emergency (ER) | payer SELFPAY ==
[2020-02-14] MEDS ORDERED: NA CHLORIDE 0.9% 1,000 ML ONE (23:52)
[2020-02-14] MEDS ORDERED: ONDANSETRON 4 MG/2 ML VIAL ONE (23:52)
[2020-02-14] MEDS ORDERED: MORPHINE 4 MG/ML SYR ONE (23:52)
[2020-02-14] MEDS ORDERED: FAMOTIDINE 20 MG/2 ML VIAL IV ONE (23:52)
[2020-02-15 00:03] LABS: Basophils % 0.5 % (0-1.3); Hematocrit 39.3 % (36.0-45.0); Lymphocytes % 23.2 % (15.3-44.8); MPV 8.7 fL (7.6-11.3)
[2020-02-15 00:26] LABS: ALT/SGPT 39 U/L (12-78); AST/SGOT 18 U/L (15-37); Albumin 3.2 g/dL (3.4-5.0); Alkaline Phosphatase 143 U/L (45-117); BUN Blood Urea Nitrogen 14 mg/dL (7-18); Bicarbonate 26 mmol/L (21-32); Bilirubin Direct < 0.1 mg/dL (0-0.2); Bilirubin Total 0.2 mg/dL (0.2-1.0); Glucose Level 94 mg/dL (74-106); Lipase 160 U/L (73-393); Potassium 4.2 mmol/L (3.5-5.1); Protein, Total 7.7 g/dL (6.4-8.2); Sodium Level 143 mmol/L (136-145)
[2020-02-15 01:35] LABS: Urine Blood NEGATIVE (NEG); Urine Glucose NEGATIVE (NEG); Urine Protein 1+ (NEG); Urine Specific Gravity >1.030 (1.005-1.030)
--- NOTE | 2020-02-15 02:04 | EDPHYS ---
Physician Documentation [facility] Name: Feliciano Blair Age: 34 yrs Sex: Female : 1985 Arrival Date: 02/14/2020 Time: 22:24 Bed 19 Private MD: ED Physician Ravi Singer HPI: 02/13 23:42 This 34 yrs old Female presents to ER via Ambulatory with complaints of mh7 Abdominal Pain. 23:42 The patient presents with abdominal pain in the upper abdomen. Onset: The mh7 symptoms/episode began/occurred today. The symptoms radiate to right back. 23:43 Associated signs and symptoms: Pertinent positives: nausea and vomiting, Pertinent mh7 negatives: anorexia, blood in stools, chest pain, constipation, diarrhea, dysuria, fever, headache, hematuria, palpitations, vaginal discharge, vomiting blood. The symptoms are described as intermittent, vague, waxing/waning. Modifying factors: The symptoms are alleviated by nothing, the symptoms are aggravated by food. Severity of pain: At its worst the pain was moderate today, in the emergency department the pain is unchanged. The patient has experienced similar episodes in the past, a few times. 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 - Social history:: Smoking status: Patient/guardian denies using. ROS: 23:43 Constitutional: Negative for fever, chills, and weight loss, Eyes: Negative for injury, mh7 pain, redness, and discharge, Neck: Negative for injury, pain, and swelling, Cardiovascular: Negative for chest pain, palpitations, and edema, Back: Negative for injury and pain, : Negative for injury, bleeding, discharge, and swelling, MS/Extremity: Negative for injury and deformity, Skin: Negative for injury, rash, and discoloration, Neuro: Negative for headache, weakness, numbness, tingling, and seizure, Psych: Negative for depression, anxiety, suicide ideation, homicidal ideation, and hallucinations, Allergy/Immunology: Negative for hives, rash, and allergies, Endocrine: Negative for neck swelling, polydipsia, polyuria, polyphagia, and marked weight changes, Hematologic/Lymphatic: Negative for swollen nodes, abnormal bleeding, and unusual bruising. Exam: 23:43 Head/Face: Normocephalic, atraumatic. Eyes: Pupils equal round and reactive to light, mh7 extra-ocular motions intact. Lids and lashes normal. Conjunctiva and sclera are non-icteric and not injected. Cornea within normal limits. Periorbital areas with no swelling, redness, or edema. Neck: Trachea midline, no thyromegaly or masses palpated, and no cervical lymphadenopathy. Supple, full range of motion without nuchal rigidity, or vertebral point tenderness. No Meningismus. Chest/axilla: Normal chest wall appearance and motion. Nontender with no deformity. No lesions are appreciated. Cardiovascular: Regular rate and rhythm with a normal S1 and S2. No gallops, murmurs, or rubs. Normal PMI, no JVD. No pulse deficits. Respiratory: Lungs have equal breath sounds bilaterally, clear to auscultation and percussion. No rales, rhonchi or wheezes noted. No increased work of breathing, no retractions or nasal flaring. 23:43 Back: No spinal tenderness. No costovertebral tenderness. Full range of motion. Skin: Warm, dry with normal turgor. Normal color with no rashes, no lesions, and no evidence of cellulitis. MS/ Extremity: Pulses equal, no cyanosis. Neurovascular intact. Full, normal range of motion. Neuro: Awake and alert, GCS 15, oriented to person, place, time, and situation. Cranial nerves II-XII grossly intact. Motor strength 5/5 in all extremities. Sensory grossly intact. Cerebellar exam normal. Normal gait. Psych: Awake, alert, with orientation to person, place and time. Behavior, mood, and affect are within normal limits. 23:43 Constitutional: The patient appears in no acute distress, alert, awake, uncomfortable. 23:43 Abdomen/GI: Inspection: abdomen appears normal, obese Bowel sounds: normal, in all quadrants, Palpation: moderate abdominal tenderness, in the epigastric area, Rectal exam: the exam is deferred, because of patient request, Indicators: McBurney's point is not tender, Hanley's sign is negative, Rovsing's sign is negative, Obturator sign is negative, Psoas sign is negative, Liver: no appreciated palpable abnormalities, Hernia: not appreciated. Vital Signs: 23:00 BP 119 / 79; Pulse 79; Resp 18; Temp 98.8; Pulse Ox 100% ; Weight 99.79 kg; Height 5 wh ft. 5 in. (165.10 cm); Pain 9/10; 02/14 00:30 BP 105 / 59; Pulse 52; Resp 18; Pulse Ox 100% on R/A; wh 02:00 BP 102 / 65; Pulse 51; Resp 18; Pulse Ox 100% on R/A; wh 02/13 23:00 Body Mass Index 36.61 (99.79 kg, 165.10 cm) MDM: 02/13 23:30 Patient medically screened. [facility] 02/14 01:59 Differential diagnosis: bowel obstruction, cholecystitis, Cholelithiasis, 7 diverticulitis, gastritis, gastroesophageal reflux disease, non-specific abd pain, pancreatitis, Peptic Ulcer Disease, Pyelonephritis, urinary tract infection. Data reviewed: vital signs, nurses notes, old medical records, lab test result(s), amylase and lipase, CBC, electrolytes, urinalysis, radiologic studies, CT scan. Data interpreted: Pulse oximetry: on room air is 100 %. Interpretation: normal. Counseling: I had a detailed discussion with the patient and/or guardian regarding: the historical points, exam findings, and any diagnostic results supporting the discharge/admit diagnosis, lab results, radiology results, the need for outpatient follow up, a general surgeon, to return to the emergency department if symptoms worsen or persist or if there are any questions or concerns that arise at home. Response to treatment: the patient's symptoms have resolved after treatment, the patient's blood pressure is in an acceptable range, mental status has returned to baseline, the patient no longer shows bradycardia, the patient is not short of breath, the patient is not tachycardic, the patient's pain is gone, the patient's temperature has normalized. 06:50 Refusal of service: The patient/guardian displays adequate decision making capability [facility] and despite a detailed discussion of alternatives, benefits, risks, and consequences refuses: Admission to the hospital for further work-up and treatment. ED course: Feels better, NAD, VSS, no focal neurological deficits. No abdominal pain, nausea, vomiting. Discussed all test results and findings with the patient and recommended admission for further care and evaluation. She declined admission and decided to leave against medical advice. Explained the possibility permanent disability and/or if condition is not treated appropriately or worsens. She verbalized that she understood this information as presented. She has a normal mental and neurological exam. She knows that she can return to the ED if worsening of symptoms or other concerns.. 02/13 23:31 Order name: Basic Metabolic Panel [facility] 02/13 23:31 Order name: CBC with Diff [facility] 02/13 23:31 Order name: Hepatic Function [facility] 02/13 23:31 Order name: Lipase [facility] 02/14 00:26 Order name: Basic Metabolic Panel; Complete Time: 00: [facility] 02/14 00:26 Order name: Liver (Hepatic) Function; Complete Time: 00: [facility] 02/14 00:26 Order name: Lipase; Complete Time: 00: [facility] 02/14 00:30 Order name: CT Abd/Pelvis - IV Contrast Only [facility] 02/14 00:32 Order name: CBC with Automated Diff; Complete Time: 01:54 [facility] 02/14 00:51 Order name: Urine Dipstick--Ancillary (enter results) [facility] 02/14 00:51 Order name: Urine --Ancillary (enter results) [facility] 02/14 01:35 Order name: Urine --Ancillary; Complete Time: 01:54 [facility] 02/14 01:35 Order name: Urine Dipstick-Ancillary; Complete Time: 01:54 [facility] 02/13 23:31 Order name: IV Saline Lock; Complete Time: 23:52 [facility] 02/13 23:31 Order name: Labs collected and sent; Complete Time: 23:52 [facility] 02/13 23:31 Order name: Urine Dipstick-Ancillary (obtain specimen); Complete Time: 00:48 [facility] 02/13 23:31 Order name: Urine Test (obtain specimen); Complete Time: 00:48 [facility] Administered Medications: 02/13 23:46 Drug: NS 0.9% 1000 ml Route: IV; Rate: 1000 ml; Site: right antecubital; 02/14 00:47 Follow up: Response: No adverse reaction; IV Status: Completed infusion 02/13 23:48 Drug: Pepcid 20 mg Route: IVP; Site: right antecubital; 02/14 00:46 Follow up: Response: No adverse reaction 02/13 23:50 Drug: morphine 4 mg {Note: RASS 0.} Route: IVP; Site: right antecubital; 02/14 00:46 Follow up: Response: No adverse reaction; Pain is decreased; RASS: Alert and Calm (0) 02/13 23:52 Drug: Zofran (Ondansetron) 4 mg Route: IVP; Site: right antecubital; 02/14 00:46 Follow up: Response: No adverse reaction; Nausea is decreased Disposition: 02/15/20 02:04 Patient has left against medical advice. Impression: Cholecystitis, Pancreatitis. - Patients states they are going to Home. - Condition is Stable. - Discharge Instructions: Acute Pancreatitis, [id number], Cholecystitis, [id number]. - Prescriptions for Zofran ODT 4 mg Oral tablet,disintegrating - place 1 tablet by TRANSLINGUAL route every 8 hours As needed; 10 tablet. Levaquin 500 mg Oral Tablet - take 1 tablet by ORAL route once daily for 7 days; 7 tablet. Tylenol- Codeine #3 300-30 mg Oral Tablet - take 2 tablet by ORAL route every 6 hours As needed; 30 tablet. Follow up: Marcel Lal MD; When: Tomorrow; Reason: Worsening of condition, Recheck today's complaints, Continuance of care, Re-evaluation by your physician. - Problem is an ongoing problem. - Symptoms have improved. Signatures: Dispatcher [employer] Andrea Teresa Ravi Singer MD MD mh7 Corrections: (The following items were deleted from the chart) 02:19 02:04 02/15/2020 02:04 Patients has left against medical advice. Impression: Cholecystitis; Pancreatitis. Patient states they are going to Home. Condition is Stable. Follow up: Marcel Lal; When: Tomorrow; Reason: Worsening of condition, Recheck today's complaints, Continuance of care, Re-evaluation by your physician. Problem is an ongoing problem. Symptoms have improved. mh7
--- NOTE | 2020-02-15 02:04 | ER ---
Nurse's Notes [facility] Name: Feliciano Blair Age: 34 yrs Sex: Female : 1985 Arrival Date: 02/14/2020 Time: 22:24 Bed 19 Private MD: Diagnosis: Cholecystitis;Pancreatitis Presentation: 02/13 23:00 Chief complaint: Patient states: epigastric pain and RUQ pain that radiates to the back, Pt with Hx of Pancreatitis was admitted a month ago. Coronavirus screen: Client denies travel out of the [place] in the last 14 days. At this time, the client does not indicate any symptoms associated with coronavirus-19. Ebola Screen: Patient negative for fever greater than or equal to 101.5 degrees Fahrenheit, and additional compatible Ebola Virus Disease symptoms Patient denies exposure to infectious person. Initial Sepsis Screen: Does the patient meet any 2 criteria? No. Patient's initial sepsis screen is negative. Does the patient have a suspected source of infection? Yes: Acute abdominal pain. Risk Assessment: Do you want to hurt yourself or someone else? Patient reports no desire to harm self or others. Onset of symptoms was February 14, 2020. 23:00 Method Of Arrival: Ambulatory 23:00 Acuity: JOSE 3 Triage Assessment: 23:11 Respiratory: the patient reports symptoms have resolved. 23:11 Respiratory: Onset: The symptoms/episode began/occurred just prior to arrival. [employer]: 23:[address] [facility] 12/2019 Historical: - Allergies: 23:07 No Known Allergies; - Home Meds: 23:07 None [Active]; - PMHx: 23:07 Pancreatitis; - PSHx: 23:07 Cholecystectomy; Gastric Sleeve; - Immunization history:: Adult Immunizations up to date. - Social history:: Smoking status: Patient/guardian denies using. Screenin:09 Abuse screen: Denies threats or abuse. Denies injuries from another. Nutritional screening: No deficits noted. Tuberculosis screening: No symptoms or risk factors identified. Fall Risk None identified. Assessment: 23:10 General: Appears in no apparent distress. uncomfortable, Behavior is calm, cooperative, appropriate for age. Pain: Complains of pain in epigastric area and right upper quadrant Pain radiates to back Pain currently is 9 out of 10 on a pain scale. Quality of pain is described as dull. Neuro: Level of Consciousness is awake, alert, obeys commands, Oriented to person, place, time, situation, Appropriate for age. Cardiovascular: Heart tones S1 S2 Rhythm is regular. Respiratory: Airway is patent Respiratory effort is even, unlabored, Respiratory pattern is regular, symmetrical, Breath sounds are clear bilaterally. GI: Abdomen is flat, non-distended, Bowel sounds present X 4 quads. Abd is soft Abdomen is tender to palpation in epigastric area and right upper quadrant Reports upper abdominal pain. : No signs and/or symptoms were reported regarding the genitourinary system. EENT: No signs and/or symptoms were reported regarding the EENT system. Derm: Skin is intact, is healthy with good turgor, Skin is pink, warm \T\ dry. normal. Musculoskeletal: Circulation, motion, and sensation intact. 02/14 00:30 Reassessment: Patient appears in no apparent distress at this time. No changes from previously documented assessment. Patient and/or family updated on plan of care and expected duration. Pain level reassessed. Patient is alert, oriented x 3, equal unlabored respirations, skin warm/dry/pink. Patient states feeling better. Patient states symptoms have improved. 02:00 Reassessment: Patient appears in no apparent distress at this time. Patient and/or family updated on plan of care and expected duration. Pain level reassessed. Patient is alert, oriented x 3, equal unlabored respirations, skin warm/dry/pink. Vital Signs: 02/13 23:00 BP 119 / 79; Pulse 79; Resp 18; Temp 98.8; Pulse Ox 100% ; Weight 99.79 kg; Height 5 wh ft. 5 in. (165.10 cm); Pain 9/10; 02/14 00:30 BP 105 / 59; Pulse 52; Resp 18; Pulse Ox 100% on R/A; 02:00 BP 102 / 65; Pulse 51; Resp 18; Pulse Ox 100% on R/A; 02/13 23:00 Body Mass Index 36.61 (99.79 kg, 165.10 cm) ED Course: 02/13 22:24 Patient arrived in ED. cl3 22:47 Andrea Cochran is Primary Nurse. wh 22:48 Ravi Singer MD is Attending Physician. [facility] 23:06 Triage completed. 23:11 Arm band placed on right wrist. 23:11 Patient has correct armband on for positive identification. Bed in low position. Call light in reach. Side rails up X 1. Pulse ox on. NIBP on. 23:30 Inserted saline lock: 20 gauge in right antecubital area, using aseptic technique. Blood collected. 02/14 02:02 Marcel Lal MD is Referral Physician. [facility] 02:17 No provider procedures requiring assistance completed. IV discontinued, intact, bleeding controlled, No redness/swelling at site. Administered Medications: 02/13 23:46 Drug: NS 0.9% 1000 ml Route: IV; Rate: 1000 ml; Site: right antecubital; 02/14 00:47 Follow up: Response: No adverse reaction; IV Status: Completed infusion 02/13 23:48 Drug: Pepcid 20 mg Route: IVP; Site: right antecubital; 02/14 00:46 Follow up: Response: No adverse reaction 02/13 23:50 Drug: morphine 4 mg {Note: RASS 0.} Route: IVP; Site: right antecubital; 02/14 00:46 Follow up: Response: No adverse reaction; Pain is decreased; RASS: Alert and Calm (0) 02/13 23:52 Drug: Zofran (Ondansetron) 4 mg Route: IVP; Site: right antecubital; 02/14 00:46 Follow up: Response: No adverse reaction; Nausea is decreased Outcome: 02:17 AMA AMA form signed 02:17 Condition: stable 02:17 Discharge instructions given to patient, Instructed on discharge instructions, follow up and referral plans. no drinking with medication, no driving heavy equipment, medication usage, POC Demonstrated understanding of instructions, follow-up care, medications, POC Prescriptions given X 3. 02:19 Patient left the ED. Signatures: Andrea Cochran Sandra Carlson cl3 Ravi Singer MD MD [facility]
[2020-02-15 02:40] VITALS: TEMP 98.8; O2SAT 100
[2020-02-15 02:42] VITALS: BP 102/65
--- NOTE | 2020-02-16 09:07 | RAD REPORT ---
EXAM DESCRIPTION: CT - Abdomen Pelvis W Contrast - 02/15/2020 6:45 am CLINICAL HISTORY: The patient is 34 years old and is Female; ABD PAIN TECHNIQUE: Axial computed tomography images of the abdomen and pelvis with intravenous contrast. S agittal and coronal reformatted images were created and reviewed. This CT exam was performed using one or more of the following dose reduction techniques: automated exposure control, adjustment of t he mA and/or kV according to patient size, and/or use of iterative reconstruction technique. COMPARISON: CT of the abdomen and pelvis January 09, 2020 FINDINGS: LUNG BASES: Unremarkable. No mass. No consolidation. ABDOMEN: LIVER: Unremarkable. No mass. GALLBLADDER AND BILE DUCTS: The gallbladder is distended. Suggestion of mild pericholecystic inf lammation and gallbladder wall enhancement is noted. Dilatation of common bile duct up to 0.9 cm is present. PANCREAS: Edema and stranding of the head and uncinate process of the pancreas is present. SPLEEN: Unremarkable. ADRENALS: Unremarkable. No mass. KIDNEYS AND URETERS: Unremarkable. The kidneys enhance symmetrically. No obstructing renal or ur eteral calculus is seen. No hydronephrosis or hydroureter. No perinephric fluid or stranding. STOMACH AND BOWEL: Postsurgical change of the stomach is present. The small bowel is normal in c aliber. A moderate amount stool is present throughout the colon. There is no mucosal thickening or ev idence of bowel obstruction. PELVIS: APPENDIX: The appendix is normal in caliber without surrounding inflammation. BLADDER: Unremarkable. No mass. REPRODUCTIVE: A 1.7 cm right ovarian cyst is present. No follow-up imaging is recommended. The u terus and left ovary are normal. ABDOMEN and PELVIS: INTRAPERITONEAL SPACE: Small free fluid is present within the pelvis which is likely physiologic . No free air. BONES/JOINTS: No acute fracture. SOFT TISSUES: The soft tissues are normal. VASCULATURE: Unremarkable. No abdominal aortic aneurysm. LYMPH NODES: Unremarkable. No enlarged lymph nodes. IMPRESSION: 1. Mild acute pancreatitis involving the head and uncinate process. 2. Mildly distended gallbladder with suggestion of pericholecystic inflammation along with a dilate d common bile duct. Findings may be secondary to acute cholecystitis. Gallstone pancreatitis should b e considered. Electronically signed by: Tamara Jiménez MD 02/15/2020 1:49 AM CDT Due to temporary technical issues with the PACS/Fluency reporting system, reports are being signed by the in house radiologist without review as a courtesy to ensure prompt reporting. The interpreting r adiologist is fully responsible for the content of the report.
== END 2020-02-15 02:19 | disposition left against medical advice (07) ==
LOC: ER 22:23
DX: K81.9 Cholecystitis, unspecified (principal); K85.90 Acute pancreatitis without necrosis or infection, unspecified; Z98.84 Bariatric surgery status
CPT/HCPCS: 36415; 74177; 80048; 80076; 81003; 81025; 83690; 85025; 96361; 96374; 96375; 99284; J2405; J7030; Q9967

== ENCOUNTER 2020-02-19 19:38 | Emergency (ER) | payer SELFPAY ==
[2020-02-19] MEDS ORDERED: MORPHINE 4 MG/ML SYR ONE (21:20)
[2020-02-19] MEDS ORDERED: ONDANSETRON 4 MG/2 ML VIAL ONE (21:21)
[2020-02-19 21:32] LABS: Absolute Lymphocytes (CBC) 1.6 K/uL (0.7-4.9); Basophils % 0.4 % (0-1.3); Hematocrit 40.3 % (36.0-45.0); Lymphocytes % 20.3 % (15.3-44.8); MPV 8.8 fL (7.6-11.3); RBC Red Blood Cell Count 5.04 M/uL (3.86-4.86)
[2020-02-19 21:38] LABS: ALT/SGPT 204 U/L (12-78); AST/SGOT 189 U/L (15-37); Albumin 3.4 g/dL (3.4-5.0); Alkaline Phosphatase 269 U/L (45-117); BUN Blood Urea Nitrogen 6 mg/dL (7-18); Bicarbonate 27 mmol/L (21-32); Bilirubin Direct 1.6 mg/dL (0-0.2); Bilirubin Total 2.2 mg/dL (0.2-1.0); Glucose Level 93 mg/dL (74-106); Lipase 11561 U/L (73-393); Potassium 4.1 mmol/L (3.5-5.1); Protein, Total 8.1 g/dL (6.4-8.2); Sodium Level 140 mmol/L (136-145)
[2020-02-19] MEDS ORDERED: FENTANYL CITR 100 MCG/2 ML ONE (23:09)
--- NOTE | 2020-02-20 00:51 | EDPHYS ---
Physician Documentation [facility] Name: Feliciano Blair Age: 34 yrs Sex: Female : 1985 Arrival Date: 02/19/2020 Time: 19:41 Bed 25 Private MD: ED Physician Fam Alfonso HPI: 02/19 01:57 This 34 yrs old Female presents to ER via Ambulatory with complaints of tw4 Abdominal Pain. 01:57 The patient presents with abdominal pain. The symptoms do not radiate. Associated signs tw4 and symptoms: none. The symptoms are described as 5 day(s) ago, sharp. Modifying factors: The symptoms are alleviated by nothing, the symptoms are aggravated by nothing. The patient has not experienced similar symptoms in the past. Historical: - PMHx: 02/18 19:56 Pancreatitis; ll1 - Immunization history:: Flu vaccine is not up to date. - Social history:: Smoking status: Patient denies any tobacco usage or history of. ROS: 02/19 01:57 Constitutional: Negative for fever, chills, and weight loss, Eyes: Negative for injury, tw4 pain, redness, and discharge, Cardiovascular: Negative for chest pain, palpitations, and edema, Respiratory: Negative for shortness of breath, cough, wheezing, and pleuritic chest pain, Back: Negative for injury and pain, MS/Extremity: Negative for injury and deformity, Skin: Negative for injury, rash, and discoloration. Abdomen/GI: Positive for abdominal pain, nausea and vomiting, Negative for abdominal cramps, abdominal distension, anorexia, dysphagia, hematemesis, black/tarry stool, rectal pain, rectal bleeding, bowel incontinence. Exam: 01:57 Constitutional: This is a well developed, well nourished patient who is awake, alert, tw4 and in no acute distress. Head/Face: Normocephalic, atraumatic. Chest/axilla: Normal chest wall appearance and motion. Nontender with no deformity. No lesions are appreciated. Cardiovascular: Regular rate and rhythm with a normal S1 and S2. No gallops, murmurs, or rubs. Normal PMI, no JVD. No pulse deficits. Respiratory: Lungs have equal breath sounds bilaterally, clear to auscultation and percussion. No rales, rhonchi or wheezes noted. No increased work of breathing, no retractions or nasal flaring. Back: No spinal tenderness. No costovertebral tenderness. Full range of motion. MS/ Extremity: Pulses equal, no cyanosis. Neurovascular intact. Full, normal range of motion. Neuro: Awake and alert, GCS 15, oriented to person, place, time, and situation. Cranial nerves II-XII grossly intact. Motor strength 5/5 in all extremities. Sensory grossly intact. Cerebellar exam normal. Normal gait. 01:57 Abdomen/GI: Inspection: abdomen appears normal, Bowel sounds: diminished, Palpation: moderate abdominal tenderness, in the right upper quadrant. Vital Signs: 02/18 20:01 BP 156 / 107; Pulse 112; Resp 18; Temp 98.7; Pulse Ox 100% ; Weight 95.25 kg; Pain ll1 02/27; 21:00 BP 137 / 81; Pulse 103; Resp 20; Pulse Ox 100% on R/A; aj1 21:34 BP 96 / 67; Pulse 88; Resp 18; Pulse Ox 100% on R/A; aj1 21:52 BP 106 / 68; Pulse 58; Resp 16; Pulse Ox 99% on R/A; aj1 22:50 BP 117 / 66; Pulse 70; Resp 18; Pulse Ox 99% on R/A; aj1 02/19 00:05 BP 114 / 76; Pulse 55; Resp 18; Pulse Ox 99% on R/A; aj1 01:01 BP 121 / 73; Pulse 58; Resp 18; Temp 98.5(TE); Pulse Ox 99% on R/A; aj1 01:55 BP 106 / 69; Pulse 58; Resp 18; Pulse Ox 99% on R/A; aj1 MDM: 02/18 20:56 Patient medically screened. tw4 02/19 01:57 Differential diagnosis: appendicitis, Cholelithiasis, GI Bleed. Data reviewed: vital tw4 signs, nurses notes. Data reviewed: lab test result(s), CBC, electrolytes, hepatic panel, radiologic studies, ultrasound. Data interpreted: Pulse oximetry: Interpretation: normal. Counseling: I had a detailed discussion with the patient and/or guardian regarding: the historical points, exam findings, and any diagnostic results supporting the discharge/admit diagnosis. Medication response: morphine partially relieved the patient's pain. Response to treatment: and as a result, I will admit patient. Special discussion:. ED course: will transfer to [facility] for higher level of care. 02/18 20:00 Order name: Basic Metabolic Panel; Complete Time: 22:27 tw4 02/18 23:21 Interpretation: Normal except: BUN 6; GLUC 93. tw4 02/18 20:00 Order name: CBC with Diff; Complete Time: 22:27 tw4 02/18 22:27 Interpretation: Normal except: RBC 5.04; RDW 15.3; MCH 26.5. tw4 02/18 20:00 Order name: Hepatic Function; Complete Time: 22:27 tw4 02/19 00:47 Interpretation: Normal except: AST 189; ALT 204; ALK 269; BILIT 2.2; BILID 1.6; GLOB tw4 4.7; A/G 0.7. 02/18 20:00 Order name: Lipase; Complete Time: 22:27 tw4 02/18 22:27 Interpretation: Normal except: LIP 89322. tw4 02/18 20:57 Order name: US Abdomen Limited tw4 02/18 20:00 Order name: IV Saline Lock; Complete Time: 21:13 tw4 02/18 20:00 Order name: Labs collected and sent; Complete Time: 21:13 tw4 Administered Medications: 02/18 21:14 Drug: morphine 4 mg Route: IVP; Site: left antecubital; aj 21:45 Follow up: Response: No adverse reaction; Pain is decreased; RASS: Alert and Calm (0) 21:14 Drug: Zofran (Ondansetron) 4 mg Route: IVP; Site: left antecubital; 02/19 00:46 Follow up: Response: No adverse reaction 02/18 23:01 Drug: fentaNYL (PF) 25 mcg Route: IVP; Site: left antecubital; 02/19 00:00 Follow up: Response: No adverse reaction; Pain is decreased; RASS: Alert and Calm (0) 00:55 Drug: fentaNYL (PF) 25 mcg Route: IVP; Site: left antecubital; aj 01:20 Follow up: Response: No adverse reaction; Pain is decreased; RASS: Alert and Calm (0) 00:55 Drug: NS 0.9% 1000 ml Route: IV; Rate: 1 bolus; Site: left antecubital; aj1 01:55 Follow up: IV Status: Infusion continued upon transfer; IV Intake: 600ml aj1 Disposition: 02/20/20 00:51 Transfer ordered to [facility]. Diagnosis is Biliary acute pancreatitis. - Reason for transfer: Higher level of care. - Accepting physician is Dr Long. - Condition is Stable. - Problem is new. - Symptoms have improved. Signatures: Dispatcher [employer] EDMS Jacy Galdamez RN RN aj1 Fam Alfonso MD MD tw4 Marlee Carlson RN RN ll1 Corrections: (The following items were deleted from the chart) 02/18 23:21 22:27 Normal except: BUN 6. 02/19 00:47 02/18 22:27 Normal except: AST 189; ALT 204; ALK 269; BILIT 2.2; BILID 1.6; GLOB 4.7. 4 [facility] 02/19 01:20 02/18 19:56 PSHx: Cholecystectomy; ll1 aj1 02/19 01:56 00:51 02/20/2020 00:51 Transfer ordered to [facility]. aj1 Diagnosis is Biliary acute pancreatitis. Reason for transfer: Higher level of care. Accepting physician is Dr Long. Condition is Stable. Problem is new. Symptoms have improved. 4
--- NOTE | 2020-02-20 00:51 | ER ---
Nurse's Notes [facility] Name: Feliciano Blair Age: 34 yrs Sex: Female : 1985 Arrival Date: 02/19/2020 Time: 19:41 Bed 25 Private MD: Diagnosis: Biliary acute pancreatitis Presentation: 02/18 20:01 Chief complaint: Patient states: Upper abdominal pain since Sunday. + N/V daily. Not ll1 eating anymore. Fever 101 this morning. Known gallbladder disease since . Coronavirus screen: Client denies travel out of the [place] in the last 14 days. At this time, the client does not indicate any symptoms associated with coronavirus-19. Ebola Screen: Patient denies travel to an Ebola-affected area in the 21 days before illness onset. Initial Sepsis Screen: Does the patient meet any 2 criteria? HR > 90 bpm. Risk Assessment: Do you want to hurt yourself or someone else? Patient reports no desire to harm self or others. Onset of symptoms was February 15, 2020. 20:01 Method Of Arrival: Ambulatory ll1 20:01 Acuity: JOSE 3 ll1 Historical: - PMHx: 19:56 Pancreatitis; ll1 - Immunization history:: Flu vaccine is not up to date. - Social history:: Smoking status: Patient denies any tobacco usage or history of. Screenin:00 Abuse screen: Denies threats or abuse. Denies injuries from another. Nutritional aj1 screening: No deficits noted. Tuberculosis screening: No symptoms or risk factors identified. Assessment: 21:00 General: Appears in no apparent distress. uncomfortable, Behavior is calm, cooperative, aj1 appropriate for age. Pain: Complains of pain in epigastric area and right upper quadrant Pain radiates to back Pain currently is 9 out of 10 on a pain scale. Neuro: Level of Consciousness is awake, alert, obeys commands, Oriented to person, place, time, situation. Cardiovascular: Patient's skin is warm and dry. Respiratory: Airway is patent Respiratory effort is even, unlabored, Respiratory pattern is regular, symmetrical. GI: Abdomen is non-distended, Bowel sounds present X 4 quads. Abd is soft X 4 quads Abdomen is tender to palpation in right upper quadrant Reports upper abdominal pain, nausea, vomiting, poor appetite. : No signs and/or symptoms were reported regarding the genitourinary system. EENT: No signs and/or symptoms were reported regarding the EENT system. Derm: No signs and/or symptoms reported regarding the dermatologic system. Skin is pink, warm \T\ dry. normal. Musculoskeletal: No signs and/or symptoms reported regarding the musculoskeletal system. Circulation, motion, and sensation intact. 21:34 Reassessment: Patient appears in no apparent distress at this time. No changes from [facility] previously documented assessment. Patient and/or family updated on plan of care and expected duration. Pain level reassessed. Patient is alert, oriented x 3, equal unlabored respirations, skin warm/dry/pink. Patient reports pain has decreased since administration of IV morphine. No complaints at this time. Ultrasound at bedside. 22:30 Reassessment: Patient appears in no apparent distress at this time. No changes from aj previously documented assessment. Patient and/or family updated on plan of care and expected duration. Pain level reassessed. Patient is alert, oriented x 3, equal unlabored respirations, skin warm/dry/pink. 22:50 Reassessment: Patient reports that her pain in increasing again. Notified Dr. Alfonso. aj Order received. 23:00 Reassessment: Charan Phillips NP at bedside to update patient on admission status, test [facility] results. 02/19 00:05 Reassessment: Patient and/or family updated on plan of care and expected duration. Pain aj1 level reassessed. Reassessment: Pain is decreased. General: Appears in no apparent distress. comfortable, Behavior is calm, cooperative, appropriate for age. Neuro: Level of Consciousness is awake, alert, obeys commands. Cardiovascular: Patient's skin is warm and dry. Respiratory: Airway is patent Respiratory effort is even, unlabored, Respiratory pattern is regular, symmetrical. GI: Abdomen is non-distended. Derm: No signs and/or symptoms reported regarding the dermatologic system. Skin is pink, warm \T\ dry. normal. Musculoskeletal: No signs and/or symptoms reported regarding the musculoskeletal system. Circulation, motion, and sensation intact. 01:00 Reassessment: Attempted to call report to [facility], notified by transfer center to [facility] call back in 10 minutes to give report. 01:01 Reassessment: Patient appears in no apparent distress at this time. Patient and/or aj1 family updated on plan of care and expected duration. Pain level reassessed. Patient is alert, oriented x 3, equal unlabored respirations, skin warm/dry/pink. Patient states that her pain has returned. Notified Dr. Alfonso. Orders received. 01:55 Reassessment: Patient appears in no apparent distress at this time. No changes from aj1 previously documented assessment. Patient and/or family updated on plan of care and expected duration. Pain level reassessed. Patient is alert, oriented x 3, equal unlabored respirations, skin warm/dry/pink. Vital Signs: 02/18 20:01 BP 156 / 107; Pulse 112; Resp 18; Temp 98.7; Pulse Ox 100% ; Weight 95.25 kg; Pain ll1 02/27; 21:00 BP 137 / 81; Pulse 103; Resp 20; Pulse Ox 100% on R/A; aj1 21:34 BP 96 / 67; Pulse 88; Resp 18; Pulse Ox 100% on R/A; aj1 21:52 BP 106 / 68; Pulse 58; Resp 16; Pulse Ox 99% on R/A; aj1 22:50 BP 117 / 66; Pulse 70; Resp 18; Pulse Ox 99% on R/A; aj1 02/19 00:05 BP 114 / 76; Pulse 55; Resp 18; Pulse Ox 99% on R/A; aj1 01:01 BP 121 / 73; Pulse 58; Resp 18; Temp 98.5(TE); Pulse Ox 99% on R/A; aj1 01:55 BP 106 / 69; Pulse 58; Resp 18; Pulse Ox 99% on R/A; aj1 ED Course: 02/18 19:41 Patient arrived in ED. cf2 20:00 Fam Alfonso MD is Attending Physician. tw4 20:03 Triage completed. ll1 20:03 Arm band placed on. ll1 20:52 Jacy Galdamez, RN is Primary Nurse. aj1 21:00 Patient has correct armband on for positive identification. Bed in low position. Call aj1 light in reach. Pulse ox on. NIBP on. 21:00 No provider procedures requiring assistance completed. Inserted saline lock: 20 gauge [facility] in left antecubital area, using aseptic technique. Blood collected. 22:01 US Abdomen Limited In Process Unspecified. EDMS 10/02 01:25 Report given to Ruperto Burrows RN at [facility]. aj 01:55 Patient transferred, IV remains in place. aj1 Administered Medications: 02/18 21:14 Drug: morphine 4 mg Route: IVP; Site: left antecubital; aj1 21:45 Follow up: Response: No adverse reaction; Pain is decreased; RASS: Alert and Calm (0) aj 21:14 Drug: Zofran (Ondansetron) 4 mg Route: IVP; Site: left antecubital; aj02/19 00:46 Follow up: Response: No adverse reaction aj1 02/18 23:01 Drug: fentaNYL (PF) 25 mcg Route: IVP; Site: left antecubital; 02/19 00:00 Follow up: Response: No adverse reaction; Pain is decreased; RASS: Alert and Calm (0) aj 00:55 Drug: fentaNYL (PF) 25 mcg Route: IVP; Site: left antecubital; aj 01:20 Follow up: Response: No adverse reaction; Pain is decreased; RASS: Alert and Calm (0) aj 00:55 Drug: NS 0.9% 1000 ml Route: IV; Rate: 1 bolus; Site: left antecubital; aj 01:55 Follow up: IV Status: Infusion continued upon transfer; IV Intake: 600ml aj Intake: 01:55 IV: 600ml; Total: 600ml. aj1 Outcome: 00:51 ER care complete, transfer ordered by . tw4 01:56 Transferred by ground EMS to [facility], Transfer form completed. aj1 X-rays sent w/ patient. 01:56 Condition: stable 01:56 Discharge instructions given to patient, Instructed on the need for transfer, Demonstrated understanding of instructions. 01:56 Patient left the ED. aj1 Signatures: Dispatcher [employer] EDJacy Rubio RN RN aj1 Fam Alfonso MD MD tw4 Shyann Doss cf2 Marlee Carlson, RICHARD RN ll1 Corrections: (The following items were deleted from the chart) :02/18 19:56 PSHx: Cholecystectomy; ll1 aj1 02/19 01:56 01:55 Patient admitted, IV remains in place. aj1 aj1
[2020-02-20] MEDS ORDERED: FENTANYL CITR 100 MCG/2 ML ONE (01:04)
[2020-02-20] MEDS ORDERED: NA CHLORIDE 0.9% 1,000 ML ONE (01:06)
[2020-02-20 02:20] VITALS: O2SAT 99
[2020-02-20 02:24] VITALS: TEMP 98.5
[2020-02-20 02:26] VITALS: BP 106/69
--- NOTE | 2020-02-20 16:00 | RAD REPORT ---
EXAM DESCRIPTION: US - Abdomen Exam Limited - 02/19/2020 11:05 pm CLINICAL HISTORY: ABD PAIN COMPARISON: Abdomen Exam Limited dated 01/09/2020; Abdomen Pelvis W Contrast dated 02/15/2020 FINDINGS: The gallbladder demonstrates multiple shadowing gallstones layering dependently. No perich olecystic fluid or gallbladder wall thickening. The common bile duct is normal measuring 4 mm. The liver demonstrates no findings of intrahepatic biliary dilatation. IMPRESSION: Cholelithiasis.
--- OUTSIDE RECORDS SUMMARY | 2020-02-25 18:02 | XMS REPORT | Clinical Summary ---
:1985 Author Organization [facility] Address [address] [place] [address] Care Team Providers Name Role Phone Unavailable Primary Care Provider Unavailable Allergies No Known Allergies Medications Medication Sig Dispensed Refills Start Date End Date Status acetaminophen-codein Take 2 0 Active e (TYLENOL #3) tablets by 300-30 mg per tablet mouth every 6 (six) hours as needed for Pain. ondansetron Take 4 mg by 0 Activ e (ZOFRAN-ODT) 4 MG mouth every 8 disintegrating (eight) hours tablet as needed for Nausea. levoFLOXacin Take 500 mg 0 02/24/2020 Disc ontinued (LEVAQUIN) 500 MG by mouth tablet daily Take one tablet by mouth daily for 7 days . Active Problems Problem Noted Date Pancreatitis 02/20/2020 Gallstone pancreatitis 02/20/2020 Encounters Date Type Specialty Care Team Description 02/23/2020 Anesthesia Event Jamila Harrington CRNA 02/23/2020 Surgery Mary Alice Peralta LAPAROSCOPY,CH AWAIS Grover MD TECTOMY 02/20/2020 - Hospital Encounter General Internal Harman Cheatham 02/24/2020 Medicine MD Akanksha pancreatitis Satinder Moura MD Bartsch, Heather Renee, MD Shiekh Sroujieh, Ruthie Robles MD after 02/24/2019 Social History Tobacco Use Types Packs/Day Years Used Date Never Assessed Sex Assigned at Date Recorded Not on file Job Start Date Occupation Industry Not on file Not on file Not on file Travel History Travel Start Travel End No recent travel history available. Last Filed Vital Signs Vital Sign Reading Time Taken Blood Pressure 119/72 02/24/2020 9:01 AM CDT Pulse 53 02/24/2020 9:01 AM CDT Temperature 36.6 C (97.9 F) 02/24/2020 9:01 AM CDT Respiratory Rate 14 02/24/2020 9:01 AM CDT Oxygen Saturation 100% 02/24/2020 9:01 AM CDT Inhaled Oxygen Concentration - - Weight 95.3 kg (210 lb) 02/23/2020 2:00 PM CDT Height 165.1 cm (5' 5") 02/23/2020 2:00 PM CDT Body Mass Index 34.95 02/23/2020 2:00 PM CDT Plan of Treatment Health Maintenance Due Date Last Done Comments LIPID PANEL 2006 CERVICAL CANCER SCREENING PAP ONLY (Age 21-65) 2007 INFLUENZA VACCINE (#1) 2020 Procedures Procedure Name Priority Date/Time Associated Diagnosis Comme nts TRANSFUSION SERVICE 02/24/2020 6:21 REPORT - SCAN PM CDT MAGNESIUM Routine 02/24/2020 5:04 Results for this AM CDT procedure are i n the results section. HEPATIC FUNCTION Routine 02/24/2020 5:04 Results for this PANEL AM CDT procedure are i n the results section. CBC (HEMOGRAM ONLY) Routine 02/24/2020 5:04 Resu lts for this AM CDT procedure are i n the results section. BASIC METABOLIC Routine 02/24/2020 5:04 Results for this PANEL (7) AM CDT procedure are i n the results section. LAPAROSCOPY,CHOLECYS 02/23/2020 1:00 Gallstone TECTOMY PM CDT pancreatitis Special Needs REQ: [id number] ABORH, MANUAL STAT 02/23/2020 6:27 AM CDT Res ults for this procedure are i n the results section . TYPE AND SCREEN, AUTOMATED Routine 02/23/2020 5:45 AM CDT Results for this procedure are i n the results section . MAGNESIUM Routine 02/23/2020 5:45 AM CDT Resu lts for this procedure are i n the results section . HEPATIC FUNCTION PANEL Routine 02/23/2020 5:45 AM CDT Results for this procedure are i n the results section . CBC (HEMOGRAM ONLY) Routine 02/23/2020 5:45 AM CDT Results for this procedure are i n the results section . BASIC METABOLIC PANEL (7) Routine 02/23/2020 5:45 AM CDT Results for this procedure are i n the results section . SCREEN, URINE Routine 02/22/2020 4:34 PM CDT Results for this procedure are i n the results section . HEPATIC FUNCTION PANEL Routine 02/22/2020 4:14 AM CDT Results for this procedure are i n the results section . TRIGLYCERIDES Add-On 02/21/2020 4:16 AM CDT Res ults for this procedure are i n the results section . CBC (HEMOGRAM ONLY) Routine 02/21/2020 4:16 AM CDT Results for this procedure are i n the results section . MAGNESIUM Routine 02/21/2020 4:16 AM CDT Resu lts for this procedure are i n the results section . HEPATIC FUNCTION PANEL Routine 02/21/2020 4:16 AM CDT Results for this procedure are i n the results section . BASIC METABOLIC PANEL (7) Routine 02/21/2020 4:16 AM CDT Results for this procedure are i n the results section . MR ABDOMEN WO CONTRAST MRCP STAT 02/20/2020 9:22 PM CDT Results for this procedure are i n the results section . SARS-COV2/RT-PCR ([facility] & REF STAT 02/20/2020 10:39 AM CDT Results for this LABS) procedure are i n the results section . CBC W/PLT COUNT & AUTO Routine 02/20/2020 5:39 AM CDT Results for this DIFFERENTIAL procedure are i n the results section . CBC W/PLT COUNT & AUTO Routine 02/20/2020 5:39 AM CDT Results for this DIFFERENTIAL procedure are i n the results section . MAGNESIUM Routine 02/20/2020 5:39 AM CDT Resu lts for this procedure are i n the results section . HEPATIC FUNCTION PANEL Routine 02/20/2020 5:39 AM CDT Results for this procedure are i n the results section . BASIC METABOLIC PANEL (7) Routine 02/20/2020 5:39 AM CDT Results for this procedure are i n the results section . after 02/24/2019 Results TRANSFUSION SERVICE REPORT - SCAN (02/24/2020 6:21 PM CDT) Narrative Performed At This result has an attachment that is no t available. CBC (Hemogram only) (02/24/2020 5:04 AM CDT)Only the most recent of3 results within the time period is included. WBC 8.9 3.5 - 10.5 K/L [facility] RBC 4.19 3.93 - 5.22 M/L [facility] Hemoglobin 11.0 (L) 11.2 - 15.7 GM/DL [facility] Hematocrit 35.0 34.1 - 44.9 % [facility] MCV 83.5 79.4 - 94.8 fL [facility] MCH 26.3 25.6 - 32.2 pg [facility] MCHC 31.4 (L) 32.2 - 35.5 GM/DL [facility] RDW 14.1 11.7 - 14.4 % [facility] Platelets 329 150 - 450 K/CU MM [facility] MPV 9.9 9.4 - 12.3 fL [facility] nRBC 0 0 - 0 /100 WBC [facility] Specimen Blood Performing Organization Address City/State/Zipcode Phone Number [facility] [address] [place] [address] CENTER Magnesium (02/24/2020 5:04 AM CDT)Only the most recent of4 resultswithin the time period is included. Magnesium 1.4 (L) 1.6 - 2.6 mg/dL [facility] Specimen Blood Narrative Performed At Climatology Teacher ID - TEAGAN Dowling [facility] Performing Organization Address City/State/Zipcode Phone Number [facility] [address] [place] [address] CENTER Hepatic function panel (02/24/2020 5:04 AM CDT)Only the most recent of5 results within the time period is included. Protein, Total 6.0 6.0 - 8.3 gm/dL [facility] Albumin 3.0 (L) 3.5 - 5.0 g/dL [facility] Total Bilirubin 0.3 0.2 - 1.2 mg/dL [facility] Bilirubin, Direct 0.2 0.1 - 0.5 mg/dL [facility] Alkaline Phosphatase 141 40 - 150 U/L [facility] AST 59 (H) 5 - 34 U/L [facility] ALT 81 (H) 6 - 55 U/L [facility] Specimen Blood Narrative Performed At Climatology Teacher ID - TEAGAN C [facility] Performing Organization Address City/State/Zipcode Phone Number [facility] [address] [place] [address] CENTER Basic metabolic panel (02/24/2020 5:04 AM CDT)Only the most recent of4 results within the time period is included. Sodium 139 136 - 145 meq/L [facility] Potassium 4.5 3.5 - 5.1 meq/L [facility] Chloride 105 98 - 107 meq/L [facility] CO2 26 22 - 29 meq/L [facility] BUN 2 (L) 7 - 21 mg/dL [facility] Creatinine 0.55 (L) 0.57 - 1.25 mg/dL [facility] Glucose 114 (H) 70 - 105 mg/dL [facility] Calcium 8.2 (L) 8.4 - 10.2 mg/dL [facility] EGFR 127Comment: ESTIMATED GFR IS mL/min/1.73 sq m [facility] NOT ACCURATE CREATININE [facility] CLEARANCE IN PREDICTING GLOMERULAR FILTRATION RATE. ESTIMATED GFR IS NOT APPLICABLE FOR DIALYSIS PATIENTS. Specimen Blood Narrative Performed At Climatology Teacher ID - MAY C [facility] Performing Organization Address City/State/Zipcode Phone Number [address] [address] CENTER ABORH, manual (02/23/2020 6:27 AM CDT) ABO Grouping O [facility] Rh Factor POS [facility] Specimen Blood Performing Organization Address [facility] Phone Number [address] [address] Type and screen, automated (02/23/2020 5:45 AM CDT) ABO/RH AUTOMATED (BEAKER) O POSITIVE [facility] Ab Scrn NEGATIVE [facility] Specimen Blood Performing Organization Address [facility] Phone Number [address] [address] Screen, urine (02/22/2020 4:34 PM CDT) Preg Test, Ur Negative [facility] Specimen Urine Performing Organization Address [facility] Phone Number [address] [address] CENTER Triglycerides (02/21/2020 4:16 AM CDT) Triglycerides 64 mg/dL [facility] Specimen Blood Narrative Performed At [facility]IG[facility]CERIDE [facility] Low Risk<150 Borderline Risk 150-199 High [id number] Very High Risk >=500 Climatology Teacher ID - ROSIANG Performing Organization Address [facility] Phone Number [address] [address] CENTER MR abdomen without IV contrast MRCP (02/20/2020 9:22 PM CDT) Specimen Narrative Performed At FINAL REPORT [employer] Messaging MR, ABDOMEN, MRCP HISTORY:Biliary obstruction suspecte d COMPARISON: None. TECHNIQUE: MRI of the abdomen with exam tailored to evaluate the biliary tree and the pancreas. Multiplan ar, multisequence images, including heavily T2-weighted MRCP seque nces were obtained. FINDINGS: Bile ducts: The common duct is at the up per limits of normal for diameter, up to 7 mm, with smooth taperi ng to the ampulla and no filling defects and no significant intra hepatic biliary ductal dilation Liver: Unremarkable. Gallbladder: There is mild pericholecyst ic fluid and gallstones. Pancreas: There is free fluid adjacent t o pancreas, predominantly at the tail and head of the pancreas. No pa ncreatic ductal dilation. No intrapancreatic fluid collection. Additional Findings: Lung bases: Trace pleural effusions bila terally. Spleen: Unremarkable Adrenals: Unremarkable Kidneys and ureters: Unremarkable. Bowel: Nondilated bowel with no wall thi ckening. Lymph nodes: Unremarkable. Peritoneum: Small free fluid, nonspecifi c but likely reactive. Vessels: Unremarkable Abdominal wall: Dependent body wall herminia a. Bones: Unremarkable. IMPRESSION: 1.Gallstones, common bile duct at the up per limits of normal for diameter, and pericholecystic fluid, cor relate for any signs or symptoms of acute cholecystitis. 2.No filling defects to suggest choledoc holithiasis. 3.Findings compatible with the patient's pancreatitis, no loculated fluid collections. Signed: Mari Fernando MD Report Verified Date/Time:02/21/2020 07:53:35 Reading Location: [facility] C013Y CT [facility] Room Procedure Note Interface, External Ris In - 02/21/2020 7:55 AM CDT FINAL REPORT MR, ABDOMEN, MRCP HISTORY: Biliary obstruction suspected COMPARISON: None. TECHNIQUE: MRI of the abdomen with exam tailored to evaluate the biliary tree and the pancreas. Multiplan ar, multisequence images, including heavily T2-weighted MRCP seque nces were obtained. FINDINGS: Bile ducts: The common duct is at the up per limits of normal for diameter, up to 7 mm, with smooth taperi ng to the ampulla and no filling defects and no significant intra hepatic biliary ductal dilation Liver: Unremarkable. Gallbladder: There is mild pericholecyst ic fluid and gallstones. Pancreas: There is free fluid adjacent t o pancreas, predominantly at the tail and head of the pancreas. No pa ncreatic ductal dilation. No intrapancreatic fluid collection. Additional Findings: Lung bases: Trace pleural effusions bila terally. Spleen: Unremarkable Adrenals: Unremarkable Kidneys and ureters: Unremarkable. Bowel: Nondilated bowel with no wall thi ckening. Lymph nodes: Unremarkable. Peritoneum: Small free fluid, nonspecifi c but likely reactive. Vessels: Unremarkable Abdominal wall: Dependent body wall herminia a. Bones: Unremarkable. IMPRESSION: 1.Gallstones, common bile duct at the up per limits of normal for diameter, and pericholecystic fluid, cor relate for any signs or symptoms of acute cholecystitis. 2.No filling defects to suggest choledoc holithiasis. 3.Findings compatible with the patient's pancreatitis, no loculated fluid collections. Signed: Mari Fernando MD Report Verified Date/Time: 02/21/2020 0 7:53:35 Reading Location: [facility] C013Y CT Body R eading Room Performing Organization Address City/State/Zipcode Phone Number [facility] SARS-CoV2/RT-PCR (Asymptomatic ONLY) (02/20/2020 10:39 AM CDT) SARS-COV2/RT-PCR Negative Not Detected, Negative, [facility] See external report for MEDICAL CENTER linked test SARS-COV-2 [facility] Specimen Other Narrative Performed At Negative result for this test determines that [facility] [place] SARS-CoV-2 RNA was not present in the specimen above the Limit of Detection (LOD).However, Negative results do not preclude SARS-CoV-2 infection and should not be used as the sole basis for treatment or patient management decisions. Negative results must be combined with clinical observations, patient history, and epidemiological information. A false negative result may occur if a specimen is improperly collected, transported or handled.A false negative result should be considered if patient's recent exposures or clinical presentation indicate that COVID-19 (SARS-CoV-2) is likely and diagnostic tests for other causes of illness are negative.Re-testing should be considered in cases of suspected false negatives. The limit of detection for this assay is 800 copies/mL. This SARS CoV-2 test is a real-time RT-PCR test intended for the qualitative detection of nucleic acid from SARS-CoV-2 in a nasopharyngeal swab specimen collected from individuals suspected of COVID-19 by their healthcare provider. This test has not been Food and Drug Administration (FDA) cleared or approved.This is a modified version of an approved Emergency Use Authorization (EUA) and is in the process of review by the FDA. Once authorized by the FDA, the issued EUA will be effective until the declaration that circumstances exist justifying the authorization of the emergency use of in vitro diagnostic tests for detection and/or diagnosis of COVID-19 is terminated under Section 564(b)(2) of the Act or the EUA is revoked under Section 564(g) of the Act. Fact Sheet for Healthcare Providers: https://www.[employer] [place]/sites/default/files/pro duct/documents/Fact_Sheet_HC_Providers_Lyra_SA RS-CoV-2.pdf Fact Sheet for Healthcare Patients: https://www.[employer] [place]/sites/default/files/pro duct/documents/Fact_Sheet_Patients_Lyra_SARS-C oV-2.pdf Performing Laboratory: [place] [address] Performing Organization Address City/State/Zipcode Phone Number [place] [phone] CENTER CBC with platelet count + automated diff (02/20/2020 5:39 AM CDT) WBC 8.4 3.5 - 10.5 K/L [facility] RBC 4.70 3.93 - 5.22 M/L [facility] Hemoglobin 12.3 11.2 - 15.7 GM/DL [facility] Hematocrit 39.3 34.1 - 44.9 % [facility] MCV 83.6 79.4 - 94.8 fL [facility] MCH 26.2 25.6 - 32.2 pg [facility] MCHC 31.3 (L) 32.2 - 35.5 GM/DL [facility] RDW 14.2 11.7 - 14.4 % [facility] Platelets 346 150 - 450 K/CU MM [facility] MPV 9.8 9.4 - 12.3 fL [facility] nRBC 0 0 - 0 /100 WBC [facility] % Neutros 72 % [facility] % Lymphs 20 % [facility] % Monos 7 % [facility] % Eos 1 % [facility] % Baso 0 % [facility] # Neutros 6.00 1.56 - 6.13 K/L [facility] # Lymphs 1.67 1.18 - 3.74 K/L [facility] # Monos 0.62 (H) 0.24 - 0.36 K/L [facility] # Eos 0.04 0.04 - 0.36 K/L [facility] # Baso 0.02 0.01 - 0.08 K/L [facility] Immature Granulocytes-Relative 0 0 - 1 % C [facility] Specimen Blood Performing Organization Address City/State/Zipcode Phone Number [facility] [address] [place] [address] CENTER after 02/24/2019 Advance Directives For more information, please contact:[place] [address] [place], [place] [phone] Code Status Date Activated Date Inactivated Comments Full Code 02/20/2020 5:27 AM 02/24/2020 1:29 PM This code status was determined by: Patient
--- OUTSIDE RECORDS SUMMARY | 2020-02-25 18:03 | XMS REPORT | Continuity of Care Document ---
:1985 Author Organization [facility] t Address [address] [place] [address] Care Team Providers Name Role Phone Chaparrita LORENZ, Akanksha Attending Clinician Zeny LORENZ, Satinder Pat Attending Clinician Tamara Campos MD Attending Clinician Homer Rajput MD, Margaret Attending Clinician [phone] Bhavna Harrington CRNA Attending Clinician Kathryn LORENZ, Reilly Attending Clinician CHAPARRITA Attending Clinician Unavailable CHAPARRITA Admitting Clinician Unavailable Problems Condition Condition Condition Status Onset Resolution Last Treating Co mments Source Name Details Category Date Date Treatment Clinician Date Pancreatit Pancreatit Disease Active 2019-[address] [facility] 00 [place] Gallstone Gallstone Disease Active 2019-[address] [facility] pancreatit pancreatit 0-02 Amanda kes - is is 00:00: Medical 00 [place] Allergies, Adverse Reactions, Alerts This patient has no known allergies or adverse reactions. Social History Social Habit Start Date Stop Date Quantity Comments Source Sex Assigned At [facility] Medications Ordered Filled Start Stop Current Ordering Indication Dosage Frequency Signature Comments Components Source Medication Medication Date Date Medication? Clinician (SIG) Name Name levoFLOXaci 2019-05- No 500mg QD Take [address] [address] n 0-06 10-06 mg by [facility] - (LEVAQUIN) 08:51: 00:00 mouth Medic al 500 MG 44 :00 daily Take [place] tablet one tablet by mouth daily for 7 days . acetaminoph 2019-05 Yes 2{tbl} Take [address] en-codeine 0-02 tablets by Arturo es - (TYLENOL 03:20: mouth Medical #3) 300-30 39 every 6 Center mg per (six) tablet hours as needed for Pain. ondansetron 2019-05 Yes 4mg Take [address] (ZOFRAN-ODT 0-02 by mouth Luke s - ) 4 MG 03:20: every 8 Medical disintegrat 39 (eight) Cente r ing tablet hours as needed for Nausea. Vital Signs Vital Name Observation Time Observation Value Comments Source Systolic blood 2020-02-24 09:01:00 119 mm[Hg] [facility] Diastolic blood 2020-02-24 09:01:00 72 mm[Hg] [facility] Heart rate 2020-02-24 09:01:00 53 /min [facility] Body temperature 2020-02-24 09:01:00 36.61 Kenna [facility] Respiratory rate 2020-02-24 09:01:00 14 /min [facility] Oxygen saturation in 2020-02-24 09:01:00 100 /min [facility] Arterial blood by Medical Ce nter Pulse oximetry Body height 2020-02-23 14:00:00 165.1 cm [facility] Body weight Measured 2020-02-23 14:00:00 95.255 kg [facility] BMI 2020-02-23 14:00:00 34.95 kg/m2 [facility] Procedures Procedure Date / Time Performed Performing Clinician [facility] e TRANSFUSION SERVICE 2020-02-24 18:21:16 Provider, Default [facility] REPORT - SCAN Scanning [facility] BASIC METABOLIC PANEL (7) 2020-02-24 05:04:[address] [facility] CBC (HEMOGRAM ONLY) 2020-02-24 05:04:00 [facility] HEPATIC FUNCTION PANEL 2020-02-24 05:04:00 [facility] MAGNESIUM 2020-02-24 05:04:00 Bartsch, [facility] LAPAROSCOPY,CHOLECYSTECTO 2020-02-23 13:00:00 Mary Alice Peralta [facility] ABORH, MANUAL 2020-02-23 06:27:00 Rosalia Nair [facility] BASIC METABOLIC PANEL (7) 2020-02-23 05:45:[address] [facility] CBC (HEMOGRAM ONLY) 2020-02-23 05:45:00 [facility] HEPATIC FUNCTION PANEL 2020-02-23 05:45:[address] [facility] MAGNESIUM 2020-02-23 05:45:00 [facility] TYPE AND SCREEN, 2020-02-23 05:45:[address] [facility] SCREEN, URINE 2020-02-22 16:34:00 Walter Jones [facility] HEPATIC FUNCTION PANEL 2020-02-22 04:14:00 Satinder Moura In [facility] BASIC METABOLIC PANEL (7) 2020-02-21 04:16:00 Satinder Moura In [facility] HEPATIC FUNCTION PANEL 2020-02-21 04:16:00 Satinder Moura In [facility] MAGNESIUM 2020-02-21 04:16:00 Satinder Moura In [facility] CBC (HEMOGRAM ONLY) 2020-02-21 04:16:00 Satinder Moura In [facility] TRIGLYCERIDES 2020-02-21 04:16:00 Tasle, [facility] MR ABDOMEN WO CONTRAST 2020-02-20 21:22:00 [facility] SARS-COV2/RT-PCR ([facility] & 2020-02-20 10:39:00 [facility] BASIC METABOLIC PANEL (7) 2020-02-20 05:39:00 Akanksha Cheatham [facility] HEPATIC FUNCTION PANEL 2020-02-20 05[facility]39:00 [facility] MAGNESIUM 2020-02-20 05:39:00 [facility] CBC W/PLT COUNT & AUTO 2020-02-20 05:39:00 [facility] Plan of Care Planned Activity Planned Date Details Comments Source Future Scheduled 2020-01-20 INFLUENZA VACCINE [facility] - Test 00:00:00 (#1) [code = [facility] INFLUENZA VACCINE (#1)] Future Scheduled 2007 Screening for [facility] es - Test 00:00:00 malignant neoplasm Medical C enter of cervix (procedure) [code = 883813989] Future Scheduled 2006 Lipid panel [facility] s - Test 00:00:00 (procedure) [code = [facility] 69446154] Results Test Description Test Time Test Comments Results Result Comments Source Basic metabolic panel 2020-02-24 07:35:00 Test Item Value Reference Range Interpretation Comme nts Sodium (test code = 139 meq/L 227-018 9817-2) Potassium (test code = 4.5 meq/L 3.5-5.1 2823-3) Chloride (test code = 105 meq/L 98-107 2075-0) CO2 (test code = 8-9) 26 meq/L 22-29 BUN (test code = 3094-0) 2 mg/dL 7-21 L Creatinine (test code = 0.55 mg/dL 0.57-1.25 L 2160-0) Glucose (test code = 114 mg/dL 70-105 H 2345-7) Calcium (test code = 8.2 mg/dL 8.4-10.2 L 21458-3) EGFR (test code = 43504-1) 127 mL/min/1.73 sq m ESTIMATED GFR IS NOT ACCURATE CREATININE GABBIE MOISES IN PREDICTING GLOMERULAR FILT RATION RATE. ESTIMATED GFR IS NOT APPLICAB LE FOR DIALYSIS PATIEN [place] (test code = [place]) Spinal Surgeon ID - May Lab Interpretation (test Abnormal code = 76535-7) [facility] [id number] 07:35:00 Test Item Value Reference Range Interpretation Comments Protein, Total (test code 6.0 6.0- 8.3 gm/dL = 2885-2) Albumin (test code = 3.0 g/dL 3.5-5 L 61453-2) Total Bilirubin (test code 0.3 mg/dL 0.2-1.2 = 1974-2) Bilirubin, Direct (test 0.2 mg/dL 0.1-0.5 code = 1967-7) Alkaline Phosphatase (test 141 U/L 40-150 code = 6768-6) AST (test code = 1920-8) 59 U/L 5-34 H ALT (test code = 1742-6) 81 U/L 6-55 H [place] (test code = [place]) Spinal Surgeon ID - TEAGAN C Lab Interpretation (test Abnormal code = 21992-3) [facility]2020-10-06 07:35:00 Test Item Value Reference Range Interpretation Comments Magnesium (test code = 1.4 mg/dL 1.6-2.6 L 73843-8) [place] (test code = [place]) Spinal Surgeon ID - TEAGAN C Lab Interpretation (test Abnormal code = 94529-9) [facility]2020-10-06 07:35:00 Test Item Value Reference Range Interpretation Comments MAGNESIUM (BEAKER) (test code = 1.4 mg/dL 1.6-2.6 L 627) Spinal Surgeon ID - TEAGAN CBASIC METABOLIC [id number] 07:35:00 Test Item Value Reference Range Interpretation Comments SODIUM (BEAKER) 139 meq/L 136-145 (test code = 381) POTASSIUM (BEAKER) 4.5 meq/L 3.5-5.1 (test code = 379) CHLORIDE (BEAKER) 105 meq/L 98-107 (test code = 382) CO2 (BEAKER) (test 26 meq/L 22-29 code = 355) BLOOD UREA NITROGEN 2 mg/dL 7-21 L (BEAKER) (test code = 354) CREATININE (BEAKER) 0.55 mg/dL 0.57-1.25 L (test code = 358) GLUCOSE RANDOM 114 mg/dL 70-105 H (BEAKER) (test code = 652) CALCIUM (BEAKER) 8.2 mg/dL 8.4-10.2 L (test code = 697) EGFR (BEAKER) (test 127 mL/min/1.73 ESTIM ATED GFR IS code = 1092) sq m NOT ACCURATE CREATININE CLEARANCE IN PREDICTING GLOMERULAR FILTRATION RATE . ESTIMATED GFR I S NOT APPLICABLE FOR DIALYSIS PATIEN TS. Spinal Surgeon ID - [facility] [id number] 07:35:00 Test Item Value Reference Range Interpretation Comments TOTAL PROTEIN (BEAKER) (test code = 6.0 gm/dL 6.0-8.3 770) ALBUMIN (BEAKER) (test code = 1145) 3.0 g/dL 3.5-5.0 L BILIRUBIN TOTAL (BEAKER) (test code 0.3 mg/dL 0.2-1.2 = 377) BILIRUBIN DIRECT (BEAKER) (test 0.2 mg/dL 0.1-0.5 code = 706) ALKALINE PHOSPHATASE (BEAKER) (test 141 U/L 40-150 code = 346) AST (SGOT) (BEAKER) (test code = 59 U/L 5-34 H 353) ALT (SGPT) (BEAKER) (test code = 81 U/L 6-55 H 347) Spinal Surgeon ID - TEAGAN CCBC (Hemogram only)2020-02-24 05:46:00 Test Item Value Reference Range Interpretation Comments WBC (test code = 6690-2) 8.9 3.5- 10.5 K/L RBC (test code = 789-8) 4.19 3.93- 5.22 M/L MCHC (test code = 786-4) 31.4 32.2- 35.5 GM/DL L Hematocrit (test code = 4544-3) 35.0 % 34.1-44.9 MCV (test code = 787-2) 83.5 fL 79.4-94.8 MCH (test code = 785-6) 26.3 pg 25.6-32.2 RDW (test code = 788-0) 14.1 % 11.7-14.4 Platelets (test code = 777-3) 329 150- 450 K/CU MM MPV (test code = 15610-7) 9.9 fL 9.4-12.3 nRBC (test code = 413) 0 0- 0 /100 WBC Lab Interpretation (test code = Abnormal 14567-6) [facility]2020-02-24 05:46:00 Test Item Value Reference Range Interpretation Comments WHITE BLOOD CELL COUNT (BEAKER) 8.9 K/ L 3.5-10.5 (test code = 775) RED BLOOD CELL COUNT (BEAKER) 4.19 M/ L 3.93-5.22 (test code = 761) HEMOGLOBIN (BEAKER) (test code = 11.0 GM/DL 11.2-15.7 L 410) HEMATOCRIT (BEAKER) (test code = 35.0 % 34.1-44.9 411) MEAN CORPUSCULAR VOLUME (BEAKER) 83.5 fL 79.4-94.8 (test code = 753) MEAN CORPUSCULAR HEMOGLOBIN 26.3 pg 25.6-32.2 (BEAKER) (test code = 751) MEAN CORPUSCULAR HEMOGLOBIN CONC 31.4 GM/DL 32.2-35.5 L (BEAKER) (test code = 752) RED CELL DISTRIBUTION WIDTH 14.1 % 11.7-14.4 (BEAKER) (test code = 412) PLATELET COUNT (BEAKER) (test 329 K/CU MM 150-450 code = 756) MEAN PLATELET VOLUME (BEAKER) 9.9 fL 9.4-12.3 (test code = 754) NUCLEATED RED BLOOD CELLS 0 /100 WBC 0-0 (BEAKER) (test code = 413) BASIC METABOLIC [id number] 07:17:00 Test Item Value Reference Range Interpretation Comments SODIUM (BEAKER) 140 meq/L 136-145 (test code = 381) POTASSIUM (BEAKER) 3.8 meq/L 3.5-5.1 (test code = 379) CHLORIDE (BEAKER) 105 meq/L 98-107 (test code = 382) CO2 (BEAKER) (test 29 meq/L 22-29 code = 355) BLOOD UREA NITROGEN < mg/dL 7-21 L (BEAKER) (test code = 354) CREATININE (BEAKER) 0.58 mg/dL 0.57-1.25 (test code = 358) GLUCOSE RANDOM 94 mg/dL 70-105 (BEAKER) (test code = 652) CALCIUM (BEAKER) 8.2 mg/dL 8.4-10.2 L (test code = 697) EGFR (BEAKER) (test 120 mL/min/1.73 ESTIM ATED GFR IS code = 1092) sq m NOT ACCURATE CREATININE CLEARANCE IN PREDICTING GLOMERULAR FILTRATION RATE . ESTIMATED GFR I S NOT APPLICABLE FOR DIALYSIS PATIEN TS. Spinal Surgeon ID - [id number] 07:11:00 Test Item Value Reference Range Interpretation Comments MAGNESIUM (BEAKER) (test code = 1.4 mg/dL 1.6-2.6 L 627) Spinal Surgeon ID - EDASIHEPATIC FUNCTION [id number] 07:11:00 Test Item Value Reference Range Interpretation Comments TOTAL PROTEIN (BEAKER) (test code = 5.9 gm/dL 6.0-8.3 L 770) ALBUMIN (BEAKER) (test code = 1145) 2.9 g/dL 3.5-5.0 L BILIRUBIN TOTAL (BEAKER) (test code 0.3 mg/dL 0.2-1.2 = 377) BILIRUBIN DIRECT (BEAKER) (test 0.3 mg/dL 0.1-0.5 code = 706) ALKALINE PHOSPHATASE (BEAKER) (test 143 U/L 40-150 code = 346) AST (SGOT) (BEAKER) (test code = 42 U/L 5-34 H 353) ALT (SGPT) (BEAKER) (test code = 76 U/L 6-55 H 347) Spinal Surgeon ID - PRINCE, [id number] 07:09:00 Test Item Value Reference Range Interpretation Comments ABO Grouping (test code = 2588) O Rh Factor (test code = 2589) POS [facility], [id number] 06:56:00 Test Item Value Reference Range Interpretation Comments ABO/RH AUTOMATED (BEAKER) (test O POSITIVE code = 2260) Ab Scrn (test code = 890-4) NEGATIVE [facility]2020-02-23 06:22:00 Test Item Value Reference Range Interpretation Comments WHITE BLOOD CELL COUNT (BEAKER) 7.1 K/ L 3.5-10.5 (test code = 775) RED BLOOD CELL COUNT (BEAKER) 4.32 M/ L 3.93-5.22 (test code = 761) HEMOGLOBIN (BEAKER) (test code = 11.3 GM/DL 11.2-15.7 410) HEMATOCRIT (BEAKER) (test code = 36.0 % 34.1-44.9 411) MEAN CORPUSCULAR VOLUME (BEAKER) 83.3 fL 79.4-94.8 (test code = 753) MEAN CORPUSCULAR HEMOGLOBIN 26.2 pg 25.6-32.2 (BEAKER) (test code = 751) MEAN CORPUSCULAR HEMOGLOBIN CONC 31.4 GM/DL 32.2-35.5 L (BEAKER) (test code = 752) RED CELL DISTRIBUTION WIDTH 14.0 % 11.7-14.4 (BEAKER) (test code = 412) PLATELET COUNT (BEAKER) (test 327 K/CU MM 150-450 code = 756) MEAN PLATELET VOLUME (BEAKER) 10.2 fL 9.4-12.3 (test code = 754) NUCLEATED RED BLOOD CELLS 0 /100 WBC 0-0 (BEAKER) (test code = 413) Screen, [id number] 17:03:00 Test Item Value Reference Range Interpretation Comments Preg Test, Ur (test code = 2112-1) Negative [facility]Y S[facility], [id number] 17:03:00 Test Item Value Reference Range Interpretation Comments TEST URINE (BEAKER) (test Negative code = 583) HEPATIC FUNCTION [id number] 05:02:00 Test Item Value Reference Range Interpretation Comments TOTAL PROTEIN (BEAKER) (test code = 5.6 gm/dL 6.0-8.3 L 770) ALBUMIN (BEAKER) (test code = 1145) 2.9 g/dL 3.5-5.0 L BILIRUBIN TOTAL (BEAKER) (test code 0.4 mg/dL 0.2-1.2 = 377) BILIRUBIN DIRECT (BEAKER) (test 0.3 mg/dL 0.1-0.5 code = 706) ALKALINE PHOSPHATASE (BEAKER) (test 145 U/L 40-150 code = 346) AST (SGOT) (BEAKER) (test code = 46 U/L 5-34 H 353) ALT (SGPT) (BEAKER) (test code = 83 U/L 6-55 H 347) Spinal Surgeon ID - [id number] 13:08:00 Test Item Value Reference Range Interpretation Comments Triglycerides (test 64 mg/dL code = 2571-8) [place] (test code = [place]) TRIGLYCERIDE REFERENCE RANGELow Risk <150Borderline Risk 150-199High Risk 200-499Very High Risk >=500Operator ID - DESHAUN ZARCO [facility] [id number] 13:08:00 Test Item Value Reference Range Interpretation Comments TRIGLYCERIDES (BEAKER) (test code = 64 mg/dL 540) TRIGLYCERIDE REFERENCE RANGELow Risk <150Borderline Risk 150-199High Risk 200-499Very High Risk>=500Operator ID - LILOGMR, ABDOMEN, [id number] 07:53:00Unlisted Reason for Exam - Click Yes and Enter Reason Below->NoFINAL REPORT MR, ABDOMEN, MRCP HISTORY: Biliary obstruction suspected COMPARISON: None. TECHNIQUE: MRI of the abdomen with exam tailored to evaluate the biliary tree and the pancreas. Multiplanar, multisequence images, including heavily T2-weighted MRCP sequences were obtained.FINDINGS: Bile ducts: The common duct is at the upper limits of normal for diameter, up to 7 mm, with smooth tapering to the ampulla and no filling defects and no significant intrahepatic biliary ductal dilationLiver: Unremarkable.Gallbladder: There is mild pericholecystic fluid and gallstones.Pancreas: There is free fluid adjacent to pancreas, predominantly at the tail and head of the pancreas. No pancreatic ductal dilation. No intrapancreatic fluid collection. Additional Findings:Lung bases: Tracepleural effusions bilaterally.Spleen: UnremarkableAdrenals: UnremarkableKidneys and ureters: Unremarkable.Bowel: Nondilated bowel with no wall thickening.Lymph nodes: Unremarkable.Peritoneum: Small free fluid, nonspecific but likely reactive.Vessels: UnremarkableAbdominal wall: Dependent body wall edema.Bones: Unremarkable. IMPRESSION: 1.Gallstones, common bile duct at the upper limits of normal for diameter, and pericholecystic fluid, correlate for any signs or symptoms of acute cholecystitis.2.No filling defects to suggest choledocholithiasis.3.Findings compatible with the patient's pancreatitis, no loculated fluid collections. Signed: Mari Fernando Verified Date/Time: 02/21/2020 07:53:35 Reading Location: [place] [address]Y CT Body Reading Room MR abdomen without IV contrast [id number] 07:53:00Interface, External Ris In - 02/21/2020 7:55 AM CDTFINAL REPORT MR, ABDOMEN,MRCP HISTORY: Biliary obstruction suspected COMPARISON: None. TECHNIQUE: MRI of the abdomen with exam tailored to evaluate the biliary tree and the pancreas. Multiplanar, multisequence images, including heavily T2- weighted MRCP sequences were obtained. FINDINGS: Bile ducts: The common duct is at the upper limits of normal for diameter, up to 7 mm, with smooth tapering to the ampulla and no filling defects and no significant intrahepatic biliary ductal dilationLiver: Unremarkable.Gallbladder: There is mild pericholecystic fluid and gallstones.Pancreas: There is free fluid adjacent to pancreas, predo minantly at the tail and head of the pancreas. No pancreatic ductal dilation. No intrapancreatic fluid collection. Additional Findings:Lung bases: Trace pleural effusions bilaterally.Spleen: UnremarkableAdrenals: UnremarkableKidneys and ureters: Unremarkable.Bowel: Nondilated bowel with no wall thickening.Lymph nodes: Unremarkable.Peritoneum: Small free fluid, nonspecific but likely reactive.Vessels:UnremarkableAbdominal wall: Dependent body wall edema.Bones: Unremarkable. IMPRESSION: 1.Gallstones, common bile duct at the upper limits of normal for diameter, and pericholecystic fluid, correlatefor any signs or symptoms of acute cholecystitis.2.No filling defects to suggest choledocholithiasis.3.Findings compatible with the patient's pancreatitis, no loculated fluid collections. Signed: Mari Fernando MDReport Verified Date/Time: 02/21/2020 07:53:35 Reading Location: [facility] B1 C013Y CT Body [facility] 05:09:00 Test Item Value Reference Range Interpretation Comments MAGNESIUM (BEAKER) (test code = 1.6 mg/dL 1.6-2.6 627) Spinal Surgeon ID - PIAYA LBASIC METABOLIC [id number] 05:09:00 Test Item Value Reference Range Interpretation Comments SODIUM (BEAKER) 137 meq/L 136-145 (test code = 381) POTASSIUM (BEAKER) 3.5 meq/L 3.5-5.1 (test code = 379) CHLORIDE (BEAKER) 105 meq/L 98-107 (test code = 382) CO2 (BEAKER) (test 25 meq/L 22-29 code = 355) BLOOD UREA NITROGEN 4 mg/dL 7-21 L (BEAKER) (test code = 354) CREATININE (BEAKER) 0.56 mg/dL 0.57-1.25 L (test code = 358) GLUCOSE RANDOM 119 mg/dL 70-105 H (BEAKER) (test code = 652) CALCIUM (BEAKER) 8.0 mg/dL 8.4-10.2 L (test code = 697) EGFR (BEAKER) (test 125 mL/min/1.73 ESTIM ATED GFR IS code = 1092) sq m NOT ACCURATE CREATININE CLEARANCE IN PREDICTING GLOMERULAR FILTRATION RATE . ESTIMATED GFR I S NOT APPLICABLE FOR DIALYSIS PATIEN TS. Spinal Surgeon ID - PIAYA LHEPATIC FUNCTION [id number] 05:09:00 Test Item Value Reference Range Interpretation Comments TOTAL PROTEIN (BEAKER) (test code = 5.8 gm/dL 6.0-8.3 L 770) ALBUMIN (BEAKER) (test code = 1145) 3.0 g/dL 3.5-5.0 L BILIRUBIN TOTAL (BEAKER) (test code 0.4 mg/dL 0.2-1.2 = 377) BILIRUBIN DIRECT (BEAKER) (test 0.4 mg/dL 0.1-0.5 code = 706) ALKALINE PHOSPHATASE (BEAKER) (test 159 U/L 40-150 H code = 346) AST (SGOT) (BEAKER) (test code = 63 U/L 5-34 H 353) ALT (SGPT) (BEAKER) (test code = 102 U/L 6-55 H 347) Spinal Surgeon ID - PIAYA LCBC (HEMOGRAM ONLY)2020-02-21 04:37:00 Test Item Value Reference Range Interpretation Comments WHITE BLOOD CELL COUNT (BEAKER) 6.8 K/ L 3.5-10.5 (test code = 775) RED BLOOD CELL COUNT (BEAKER) 3.94 M/ L 3.93-5.22 (test code = 761) HEMOGLOBIN (BEAKER) (test code = 10.5 GM/DL 11.2-15.7 L 410) HEMATOCRIT (BEAKER) (test code = 33.2 % 34.1-44.9 L 411) MEAN CORPUSCULAR VOLUME (BEAKER) 84.3 fL 79.4-94.8 (test code = 753) MEAN CORPUSCULAR HEMOGLOBIN 26.6 pg 25.6-32.2 (BEAKER) (test code = 751) MEAN CORPUSCULAR HEMOGLOBIN CONC 31.6 GM/DL 32.2-35.5 L (BEAKER) (test code = 752) RED CELL DISTRIBUTION WIDTH 14.0 % 11.7-14.4 (BEAKER) (test code = 412) PLATELET COUNT (BEAKER) (test 299 K/CU MM 150-450 code = 756) MEAN PLATELET VOLUME (BEAKER) 9.8 fL 9.4-12.3 (test code = 754) NUCLEATED RED BLOOD CELLS 0 /100 WBC 0-0 (BEAKER) (test code = 413) SARS-CoV2/RT-PCR (Asymptomatic ONLY)2020-02-20 16:48:00 Test Item Value Reference Range Interpretation Comments SARS-COV2/RT-PCR Negative Not Detected, (test code = Negative, See 85747-9) external report for linked test SARS-COV-2 [facility] PERFORMING LAB (test code = 28201-1) [place] (test code = Negative result for this [place]) test determines that SARS-CoV-2 RNA was not present in the specimen above the Limit of Detection (LOD). However, Negative results do not preclude SARS-CoV-2 infection and should not be used as the sole basis for treatment or patient management decisions. Negative results must be combined with clinical observations, patient history, and epidemiological information. A false negative result may occur if a specimen is improperly collected, transported or handled. A false negative result should be considered if patient's recent exposures or clinical presentation indicate that COVID-19 (SARS-CoV-2) is likely and diagnostic tests for other causes of illness are negative. Re-testing should be considered in cases of suspected [...] Food and Drug Administration (FDA) cleared or approved. This is a modified version of an approved [...] of the Act. Fact Sheet for Healthcare Providers:https://www.[employer]/sites/default/f alphonse/product/documents/F act_Sheet_HC_Providers_L mvt_BGSG-UcZ-7.pdf Fact Sheet for Healthcare Patients:https://www.[employer]/sites/default/fi les/product/documents/Fa ct_Sheet_Patients_Lyra_S ARS-CoV-2.pdf Performing Laboratory:[address] [place] [address] [facility])2020-02-20 16:48:00 Test Item Value Reference Range Interpretation Comments SARS-COV2/RT-PCR (test Negative Not Detected, Negative, code = 7261407) See external report for linked test SARS-COV-2 PERFORMING LAB [facility] (test code = 6428301) Negative result for this test determines that SARS-CoV-2 RNA was not present in the specimen above the Limit of Detection (LOD). However, Negative results do not preclude SARS-CoV-2 infection and should not be used as the sole basis for treatment or patient management decisions. Negative results mustbe combined with clinical observations, patient history, and epidemiological information. A false negative result may occur if a specimen is improperly collected, transported or handled. A false negative result should be considered if patient's recent exposures or clinical presentation indicate that COVID-19 (SARS-CoV-2) is likely and diagnostic tests for other causes of illness are negative. Re-testing should be considered in cases of suspected false negatives.The limit of detection for this assay is 800 copies/mL.This SARS CoV-2 test is a real-time RT-PCR test intended for the qualitative detection of nucleic acid from SARS-CoV-2 in a nasopharyngeal swab specimen collected from individuals susp ected of COVID-19 by their healthcare provider.This test has not been Food and Drug Administration (FDA) cleared or approved. This is a modified version of an approved [...] is revoked under Section 564(g) of the Act.Fact Sheet for Healthcare Providers:https://www.[employer]/sites/default/files/product/documents/Fact_Shee k_AZ_Xsgeykssr_Gyra_OBWE-OfU-3.pdfFact Sheet for Healthcare Patients:https://www.[employer].com/sites/default/files/product/ documents/Dshc_Ciioq_Fxkrxkwh_Mnkc_NFXN-TqR-1.pdfPerforming Laboratory:[facility], [place] [id number] 07:22:00 Test Item Value Reference Range Interpretation Comments MAGNESIUM (BEAKER) (test code = 1.9 mg/dL 1.6-2.6 627) Spinal Surgeon ID - MARGARITA FBASIC METABOLIC [id number] 07:22:00 Test Item Value Reference Range Interpretation Comments SODIUM (BEAKER) 137 meq/L 136-145 (test code = 381) POTASSIUM (BEAKER) 4.3 meq/L 3.5-5.1 (test code = 379) CHLORIDE (BEAKER) 105 meq/L 98-107 (test code = 382) CO2 (BEAKER) (test 22 meq/L 22-29 code = 355) BLOOD UREA NITROGEN 7 mg/dL 7-21 (BEAKER) (test code = 354) CREATININE (BEAKER) 0.61 mg/dL 0.57-1.25 (test code = 358) GLUCOSE RANDOM 90 mg/dL 70-105 (BEAKER) (test code = 652) CALCIUM (BEAKER) 8.6 mg/dL 8.4-10.2 (test code = 697) EGFR (BEAKER) (test 113 mL/min/1.73 ESTIM ATED GFR IS code = 1092) sq m NOT ACCURATE CREATININE CLEARANCE IN PREDICTING GLOMERULAR FILTRATION RATE . ESTIMATED GFR I S NOT APPLICABLE FOR DIALYSIS PATIEN TS. Spinal Surgeon ID Susan AVILA FHEPATIC FUNCTION [id number] 07:22:00 Test Item Value Reference Range Interpretation Comments TOTAL PROTEIN (BEAKER) (test code = 6.9 gm/dL 6.0-8.3 770) ALBUMIN (BEAKER) (test code = 1145) 3.6 g/dL 3.5-5.0 BILIRUBIN TOTAL (BEAKER) (test code 1.4 mg/dL 0.2-1.2 H = 377) BILIRUBIN DIRECT (BEAKER) (test 1.2 mg/dL 0.1-0.5 H code = 706) ALKALINE PHOSPHATASE (BEAKER) (test 214 U/L 40-150 H code = 346) AST (SGOT) (BEAKER) (test code = 144 U/L 5-34 H 353) ALT (SGPT) (BEAKER) (test code = 162 U/L 6-55 H 347) Spinal Surgeon ID Susan AVILA FCBC with platelet count + automated [id number] 06:03:00 Test Item Value Reference Range Interpretation Comments WBC (test code = 6690-2) 8.4 3.5- 10.5 K/L RBC (test code = 789-8) 4.70 3.93- 5.22 M/L MCHC (test code = 786-4) 31.3 32.2- 35.5 GM/DL L Hematocrit (test code = 4544-3) 39.3 % 34.1-44.9 MCV (test code = 787-2) 83.6 fL 79.4-94.8 MCH (test code = 785-6) 26.2 pg 25.6-32.2 RDW (test code = 788-0) 14.2 % 11.7-14.4 Platelets (test code = 777-3) 346 150- 450 K/CU MM MPV (test code = 29057-7) 9.8 fL 9.4-12.3 nRBC (test code = 413) 0 0- 0 /100 WBC % Neutros (test code = 429) 72 % % Lymphs (test code = 430) 20 % % Monos (test code = 431) 7 % % Eos (test code = 432) 1 % % Baso (test code = 437) 0 % # Neutros (test code = 670) 6.00 1.56- 6.13 K/L # Lymphs (test code = 414) 1.67 1.18- 3.74 K/L # Monos (test code = 415) 0.62 0.24- 0.36 K/L H # Eos (test code = 416) 0.04 0.04- 0.36 K/L # Baso (test code = 417) 0.02 0.01- 0.08 K/L Immature Granulocytes-Relative 0 % 0-1 (test code = 2801) Lab Interpretation (test code = Abnormal 57512-9) [facility] W/PLT COUNT & AUTO [id number] 06:03:00 Test Item Value Reference Range Interpretation Comments WHITE BLOOD CELL COUNT (BEAKER) 8.4 K/ L 3.5-10.5 (test code = 775) RED BLOOD CELL COUNT (BEAKER) 4.70 M/ L 3.93-5.22 (test code = 761) HEMOGLOBIN (BEAKER) (test code = 12.3 GM/DL 11.2-15.7 410) HEMATOCRIT (BEAKER) (test code = 39.3 % 34.1-44.9 411) MEAN CORPUSCULAR VOLUME (BEAKER) 83.6 fL 79.4-94.8 (test code = 753) MEAN CORPUSCULAR HEMOGLOBIN 26.2 pg 25.6-32.2 (BEAKER) (test code = 751) MEAN CORPUSCULAR HEMOGLOBIN CONC 31.3 GM/DL 32.2-35.5 L (BEAKER) (test code = 752) RED CELL DISTRIBUTION WIDTH 14.2 % 11.7-14.4 (BEAKER) (test code = 412) PLATELET COUNT (BEAKER) (test 346 K/CU MM 150-450 code = 756) MEAN PLATELET VOLUME (BEAKER) 9.8 fL 9.4-12.3 (test code = 754) NUCLEATED RED BLOOD CELLS 0 /100 WBC 0-0 (BEAKER) (test code = 413) NEUTROPHILS RELATIVE PERCENT 72 % (BEAKER) (test code = 429) LYMPHOCYTES RELATIVE PERCENT 20 % (BEAKER) (test code = 430) MONOCYTES RELATIVE PERCENT 7 % (BEAKER) (test code = 431) EOSINOPHILS RELATIVE PERCENT 1 % (BEAKER) (test code = 432) BASOPHILS RELATIVE PERCENT 0 % (BEAKER) (test code = 437) NEUTROPHILS ABSOLUTE COUNT 6.00 K/ L 1.56-6.13 (BEAKER) (test code = 670) LYMPHOCYTES ABSOLUTE COUNT 1.67 K/ L 1.18-3.74 (BEAKER) (test code = 414) MONOCYTES ABSOLUTE COUNT (BEAKER) 0.62 K/ L 0.24-0.36 H (test code = 415) EOSINOPHILS ABSOLUTE COUNT 0.04 K/ L 0.04-0.36 (BEAKER) (test code = 416) BASOPHILS ABSOLUTE COUNT (BEAKER) 0.02 K/ L 0.01-0.08 (test code = 417) IMMATURE GRANULOCYTES-RELATIVE 0 % 0-1 PERCENT (BEAKER) (test code = 7961)
== END 2020-02-20 01:56 | disposition short-term general hospital (02) ==
LOC: ER 19:38
DX: K85.10 Biliary acute pancreatitis without necrosis or infection (principal)
CPT/HCPCS: 36415; 76705; 80048; 80076; 83690; 85025; 96361; 96374; 96375; 99285; J2405; J3010; J7030

== ENCOUNTER 2021-01-20 08:36 | Emergency (ER) | payer BC, SELFPAY ==
--- OUTSIDE RECORDS SUMMARY | 2021-01-20 08:40 | XMS REPORT | Continuity of Care Document ---
:1985 Author Organization [facility] t Address [address] [place] [address] Care Team Providers Name Role Phone CHAPARRITA Attending Clinician Unavailable Chaparrita LORENZ Attending Clinician Aida LORENZ, In Attending Clinician Beth LORENZ, Tamara Attending Clinician Homer Rajput MD, Margaret Attending Clinician [phone] Davide LORENZ, Ryan Attending Clinician Bhavna Harrington CRNA Attending Clinician Kathryn LORENZ, Reilly Attending Clinician CORTNEYAPRIL Admitting Clinician Unavailable Problems Condition Condition Condition Status Onset Resolution Last Treating Co mments Source Name Details Category Date Date Treatment Clinician Date Pancreatit Pancreatit Disease Active 2019-[address] [facility]02 [facility] Medical 00 [place] Gallstone Gallstone Disease Active 2019-05 [facility] pancreatit pancreatit 0-02 Amanda kes - is is 00:00: Medical 00 [place] Allergies, Adverse Reactions, Alerts This patient has no known allergies or adverse reactions. Social History Social Habit Start Date Stop Date Quantity Comments Source Sex Assigned At [facility] Medications Ordered Filled Start Stop Current Ordering Indication Dosage Frequency Signature Comments Components Source Medication Medication Date Date Medication? Clinician (SIG) Name Name acetaminoph 2019-05 Yes 2{tbl} Take [address] en-codeine 0-06 tablets by Arturo es - (TYLENOL 11:29: mouth Medical #3) 300-30 31 every 6 Center mg per (six) tablet hours as needed for Pain. ondansetron 2019-05 Yes 4mg Take [address] (ZOFRAN-ODT 0-06 by mouth Luke s - ) 4 MG 11:29: every 8 Medical disintegrat 31 (eight) Cente r ing tablet hours as needed for Nausea. levoFLOXaci 2019-05 500mg QD Take [address] [facility] [address] n 0-06 10-06 mg by [facility] - (LEVAQUIN) 08:51: 00:00 mouth Medic al 500 MG 47 :00 daily Take Center tablet one tablet by mouth daily for 7 days . Vital Signs Vital Name Observation Time Observation Value Comments Source Systolic blood 2020-02-24 09:01:00 119 mm[Hg] [facility] Diastolic blood 2020-02-24 09:01:00 72 mm[Hg] [facility] Heart rate 2020-02-24 09:01:00 53 /min [facility] Body temperature 2020-02-24 09:01:00 36.61 Kenna [facility] Respiratory rate 2020-02-24 09:01:00 14 /min [facility] Oxygen saturation in 2020-02-24 09:01:00 100 /min [facility] Arterial blood by Medical Ce nter Pulse oximetry Body height 2020-02-23 14:00:00 165.1 cm [facility] Body weight 2020-02-23 14:00:00 95.255 kg [facility] BMI 2020-02-23 14:00:00 34.95 kg/m2 [facility] Procedures Procedure Date / Time Performed Performing Clinician Sour e RHYTHM STRIP - SCAN 2020-02-27 09:01:36 Provider, Default [facility] TRANSFUSION SERVICE 2020-02-24 18:21:16 Provider, Default [facility] REPORT SCAN [facility] BASIC METABOLIC PANEL (7) 2020-02-24 05:04:00 Minal Campos [facility] CBC (HEMOGRAM ONLY) 2020-02-24 05:04:00 Bartsch, [facility] HEPATIC FUNCTION PANEL 2020-02-24 05:04:00 [facility] MAGNESIUM 2020-02-24 05:04:00 [facility] TISSUE EXAM 2020-02-23 15:44:00 Mary Alice Peralta [facility] LAPAROSCOPY,CHOLECYSTECTO 2020-02-23 14:17:00 Mary Alice Peralta [facility] ABORH, MANUAL 2020-02-23 06:27:00 Rosalia Nair [facility] BASIC METABOLIC PANEL (7) 2020-02-23 05:45:00 [facility] M[facility] C [facility] CBC (HEMOGRAM ONLY) 2020-02-23 05:45:00 [facility] HEPATIC FUNCTION PANEL 2020-02-23 05:45:00 [facility] MAGNESIUM 2020-02-23 05:45:00 [facility] TYPE AND SCREEN, 2020-02-23 05:45:00 Walter Jones [facility] SCREEN, URINE 2020-02-22 16:34:00 Walter Jones [facility] HEPATIC FUNCTION PANEL 2020-02-22 04:14:00 Zeny-Areli Obandog In [facility] BASIC METABOLIC PANEL (7) 2020-02-21 04:16:00 Zeny-Gisella Sung I n [facility] HEPATIC FUNCTION PANEL 2020-02-21 04:16:00 Zeny-Gisella, Sung In C [facility] MAGNESIUM 2020-02-21 04:16:00 Zeny-Gisella, Sung In [facility] CBC (HEMOGRAM ONLY) 2020-02-21 04:16:00 Zeny-Gisella, Sung In [facility] TRIGLYCERIDES 2020-02-21 04:16:00 Jarret Lewis [facility] MR ABDOMEN WITHOUT IV 2020-02-20 21:22:00 [facility] IGG SUBCLASS-4 ONLY 2020-02-20 15:19:00 [facility] L [facility] SARS-COV2/RT-PCR ([facility] & 2020-02-20 10:39:00 [facility] - REF LABS) [facility] BASIC METABOLIC PANEL (7) 2020-02-20 05:39:00 [facility] HEPATIC FUNCTION PANEL 2020-02-20 05:39:00 [facility] MAGNESIUM 2020-02-20 05:39:00 [facility] CBC W/PLT COUNT & AUTO 2020-02-20 05:39:00 [facility] Plan of Care Planned Activity Planned Date Details Comments Source Future Scheduled 2020-01-[address] [facility] - Test 00:00:00 (#1) [code = [facility] INFLUENZA VACCINE (#1)] Future Scheduled [address] [facility] - Test 00:00:00 malignant neoplasm Medical C enter of cervix (procedure) [code = 772672674] Future Scheduled [address] [facility] - Test 00:00:00 (procedure) [code = [facility] 33045718] Encounters Start End Encounter Admission Attending Care Care Encounter Source Date/Time Date/Time Type Type Clinicians Facility Department ID 2020-02-20 2020-02-24 [facility] [id number] 02:52[facility]00 11:29:00 [facility] 2020-02-23 2020-02-23 Anesthesia Aldo Augustine [facility] [id number] [facility] 14:32:00 17:20:00 Event Jamila Harrington [facility] 2020-02-23 2020-02-23 Surgery Kathryn [facility] [id number] 13:00:00 15:15:00 Mary Alice [facility] Results Test Description Test Time Test Comments Results Result Comments Source IGG SUBCLASS-4 ONLY 2020-02-26 18:26:00 Test Item Value Reference Range Interpretation Comme nts Igg 4 (test code = 9267830) 20.9 mg/dL 4-86 [place] (test code = [place]) Performing Lab E[facility] [address] [address] Luisito Pitt MD, PhD, ANTONIO [facility] Center[facility] [id number] 11:38:00 Test Item Value Reference Range Interpretation Comments Case Report (test code Surgical Pathology = 104) Report Case: [id number] Authorizing Provider: Mary Alice Peralta MD Collected: 02/23/2020 03:44 PM Ordering Location: [facility] PERIOPERATIVE Received: 02/24/2020 09:06 AM SERVICES Pathologist: Jo Sams MD Specimen: Gallbladder DIAGNOSIS (test code = [id number] 3220) uZzEwMzNcZnRuYmpcdWMxIH zvfwLoPGdid8IhF6OhZeCkO FxhbnNpXGRlZmxhbmcxMDMz EUL4tiCbLQYvUIweZYMeZTp sDj5ghCRzdXuuFbDyHLWay9 cfgzUEvojafSi7d0ulPGQmN iS5yYAvJUobD1hczjJtvZAd PBMmOBx5bH04SBQhxG2utDV sIDtccmVkMFxncmVlbjBcYm o9FUUiL1qyIEJoTLYyX9ZmG G4hCNCfAkn8QDK6NHG2jUxl q6P0aFKtrUAsiAhiJvRnGhC sBQBCx5OaCPm1gWzsI5NzGI TkZaW7yPPzCCNdGSnaRYMsC GWkkhW5oK26RPnwfwM5cXCa x8Ffn95av635gC5gvHUaLCC 9DPMkTTQnkTQgJHXgNBC4AA RvsIXdS0q2UsUraSIbY8S4S tUfbWUuL3G3LuOufRZwC4L0 QcWgoSCbJTOtsIUmBb7uiNF fdSJzfs1dxj62QLH0g8BbfR ejLOO8FZN8SfPpMo3kbUXgN BFfLW6fJlDdqMCyFVWsmd21 hNxtXUcymiJndU4gCyTnUDA efSJmQFZlNE7wxMIbVOSeaN 5ucmxjXHBnYnJkcmhlYWRcc NjteyCpSs1clXvtPZQ0ZWmi T2ikwS5iZuM8PHkjT9uaaD1 yJRr7LNkwgHK9WURsuZ8jQM 7xmnxzr1ryAcNiSF6ynmlma 9pkWuJtFY6qprn4q9suGmUm KW1thvtmj1ziXlVeIEzqVZP kbbnyCMDkg2StlxqbPSMhj6 TzH7BikLxyN63nzSedL16uK UXioOwjqO8umNzgmK4nPgYn ZnMyMFxxbFxwbGFpblxmMFx mczIwXHBsYWluXGYwXGZzMj NmxMAeJRLrtyYmxJtwhL8wA jBcZnMyMFxwbGFpblxmMVxm czIwIEEuIEdBTExCTEFEREV NEAZIEU1INFMHB2ICX8WWAY x2LDHpijytsCvljTJxkwjjZ FxmczIwXHBsYWluXGYxXGZz NnAaWALlFTEiXBPOUy5URBZ tG6jMIYHFOOPUNKIRIa2ytD mgrV8iChBlZrEwELhuBEL8b 1xydGYxXHNzdGUxODAwMFxh bnNpXGRlZmxhbmcxMDMzXGZ 0bmJqXHVjMVxkZWZmMHtcZm 9kgRJmhKeeBzCeHWEbs4aqd qAPrqyciDl4d8fyKDDhBxT4 dIIcSFezO4vcwcWxrMEtHXS jSEb7pU35WHNpvH2grALzCO ulgzSgIaI1BDzxTHPiZbO0M KBeaAJiEBIhE4xdPVPhACyj SZYnQGkngJYvOBO6eGoaa9Z 5bGVzaGVldHtcZjBcZnMyMi NXg1XlPYk6bBahB6UcDCQbI eO7uOKpECKwXFwkNROhXYRz ycB5bE30LQmoscV9fVJic0W hr00nh504sY3ykCNsHUX6EH KlRPYtpRXpFDJfODE4LZVtq MIcG6hjGMKyFM6adrdkVLon ADyjFBXdrEJ6VRQkgDIcU9R yNXSeNVwvNVNyids8NxKcVm 9wySKsjAjnTDuxh2ygz7ijg TUjFxb3CCOhKqGfPtjvCTla f9Xdx2quUEYbvq5bZOH0vTC lcFlnx9H6wNKpXCPjsMWeFI MvTC0riOYgXQLnbQ9zvgtsK HBnYnJkcmhlYWRccGdicmRy Lu9ifEihBHN9EYoxM0vwcW3 nFbB9CTykW1xhgS6pIAs9ZT hbPBUuySV3dlD3RGDakYHwR 6BryT1aCDGdYK4vihu3t2rk DTP5VCofAOBvHnM0efY3KVG mePNvVWPzlPdnNWduv680LM Z5ZoQyFMVsj9IvE9VszKxjD 35myNdgW01cHPWyrFfdnF5x mWfbhK4nDdZoDtFbXAwgjEk wEY0dCJGzI6zjrUWnQRIvFV JzG6sxExSmmI0mkYutQQggf cOtCBEsRyp7JIPgpBSiPLTa Krj1QDRxNOKbC69eylvaIQY 5dO5gq7nzs9ZsTFyyBZF0XM Exm33aFXydavA3UEeiTu20S LpgMNR9FWtlWFT8bG== CPT Code(s) (test code c1kahMGeVFEmsUSeQrVhYES = 3357) iXVNfd3imIMNfxHTeIoHkAw NcZnRuYmpcdWMxXGRlZmYwe 2qlr402xWFht6uzFRBrXtX7 xYMcUFDgsWUlZ283s0bkm8d ospFigHI6ETTuLMD5ACiplo FxhhL1KVmsnRFgEfC0DXohe sSpQPcfnuHpvsHnRca5WDNc G506IAQ6rBpik5nqPBN4WCJ eQNXaSlLuCf1wxVWvK743BK WaCUMGQKUsbYx2RLFsvuAvr mHajFPKj676M413x2uiMHJw muOkfOqOhyzfm1zbW647PML hcGVydzEyMjQwXHBhcGVyaD A3FYTwLL8qabrgKqWzFZ9vb igsQpRgAK0txyd3YxSpBC4v cmdiNzIwXGhlYWRlcnkwXGZ qa5RwuodhJL4hC5Jfx3I8sC 9maXRcZGVmdGFiNzIwXGZvc q5vzGSbOFziy9ZtOYM2bcW2 wCFhgYCdFCRhWU85Xndfz2J wHblxBYU3WYVkqbYuj5Vxy5 xaYtQdqmXeC6ybP9UhHOGtB AXwCWKeHnTjvgPcn8Lqq5Dy yXXlyGm7l5yvHEKjAQCvzKl qh4liENJ5JLQhP4A0bWJvo1 vrZJwiZYMdmDK4cmkzNLbuR DFlxjP5vtfjSRbhAWGreES4 ympoAYxqOFNoLvL6jtgvBAc kKKExYUT1AFpfb836EAR9YC xzYmtwYWdlXHBnbmNvbnRcc GduZGVjXHBsYWluXHBsYWlu XGYwXGZzMjRccWxccGxhaW5 pQaIeGbRhPSgoQI7aFQMgP2 cluGLuSMZaJQZgD9rgOrTtn F1kqKyeCHohjfDbBUk2QmZ1 XHBhcn0= CLINICAL HISTORY (test h6dxwNKjDBAgoHAmMiVbTEB code = 3356) lMJDmh9ulMZAwpMVmSxPoRs NcZnRuYmpcdWMxXGRlZmYwe 0qqe427eMAjf0srEXPxOgF2 kQGwZFUgsLNxR734l9vvf4l wtaIqkOP8JQPbRJF0DFxeut BijcJ4WSbjbSGfHgA5FLtrh yShRRsfnwCirlSaAcg8OJFx A418QDH9dFpoa8exNSD6IPG dYKKaTyTaQw5fyLJaZ745VK HgIUIAVKLqdMe7KBGzqhZci nYawSLJe342C863p3iqIAOq jiXgmMyFmhqca9vtF973UFZ hcGVydzEyMjQwXHBhcGVyaD O1YMNbZC2oinclWuSaZZ7hp miiTzNwXK7pyxt4PiJaLV4u cmdiNzIwXGhlYWRlcnkwXGZ vx4FkirphZV8qM6Rnh9D9rR 9maXRcZGVmdGFiNzIwXGZvc j7upSKxELece0WgTQV5nxD9 zGQjpHJaVYCiCF16Liudh5B kUqpzCBM0QCLhcnTkm3Lrw0 neSlQxcrCfF6mkP3FlSNMpS OZvJQYmXhKmvvEim8Qsx6Am cUGteWb9t4mtSGMaIPHiwBw kw5bhMJG8VHKxJ4X3lYMyd3 coQExsEZKliFV4dfgrULtlB UVqgdR0mqdwNCxiGJGfuTV4 fmirZBfqEWYoSwC3kwywJZv gDRNzBRU5KPkui862LGW0QH xzYmtwYWdlXHBnbmNvbnRcc GduZGVjXHBsYWluXHBsYWlu XGYwXGZzMjRccWxccGxhaW5 hJkRoZbMeKQmwLC1uZUMnD4 dihVXyVQJzSKEuT4lxVyQby L5keIfyCWdukyXpPQqijHqc gM5xEAMpWK5uakSjhPv1nGU gXHBhcn0= SPECIMEN SOURCE (test m9ejjKXdJGEqhEKmGrIzEXW code = 3377) gVLHsx3dtGBFjrDRyNbFcAl NcZnRuYmpcdWMxXGRlZmYwe 2rik513oLXvr0geQLCgKfP9 nLRyTCJqjAKjE756w7law8n hgiPwmDM5ROCtZOG3NHhgkm CgfsG6CJbkjMAhRnA1GPumf qHuCVhpgyNzsoMrOgh3KDLs E377YCR5eVdny9vmPDZ9SUM fPGHgAsArTc5ttCVvD739ZR AeAOSFPXQonYj2OHPpbpCdd sSauTIWn296U245w6ixRDFm vrVdyWbFtnfwm4hwA250ZGX hcGVydzEyMjQwXHBhcGVyaD P1FPUyJH0xdfquEwYcYI0dk pciLiYtYT7byrn7OuEgBZ5j cmdiNzIwXGhlYWRlcnkwXGZ cr2YrtoizLL2tC7Iac0V1hJ 9maXRcZGVmdGFiNzIwXGZvc v7vdZFlHZuge4CyCLE8jwQ5 mOHdzSIvZEGvUB81Tazyu5U tWlceFUI0YIOuktNuu8Kqn6 pbByQssrYsJ2djM4OkSKFxS SRkDRBeBrWzkpMyw8Boe9Hq cWYhdRl7z6cbTWXqGHKntCm rv9exDUU0ADRxQ1T2aKBat9 uwWOdjRSSikOD7lqucLMojL IWangQ2dgffTBlqFQUkoUZ0 hfxsCUccXFMbZjW9hkngZCc hEMQaNKV3UYrqf756ZCL4HI xzYmtwYWdlXHBnbmNvbnRcc GduZGVjXHBsYWluXHBsYWlu XGYwXGZzMjRccWxccGxhaW5 yNrCuZoKtFWkeAW6dALJgR8 qmgYTaQVIwXOXtU3gsZkLbo Y8rwYzyYBsexbLcRAnolUht bGFkZGVyIFxwYXJ9 GROSS DESCRIPTION o8jtqNWpRLGwvBFwOdPkKUZ (test code = 3366) nLRHcv1ogUHNyfZTfUlKjZb NcZnRuYmpcdWMxXGRlZmYwe 0zzk671mXKrj5faOCTtIqK8 mIEaDRLmhZKkN312r2czn2r lmgPpqCS1BQNsALJ6JBpwyj LdhtJ7GVmnzZSrSeJ7ORiyj tWsPHtzyvUhqqLvXcj0TRPj Z152AEB4tFdcv1dkJJI0IIF nWVEzUzPxGx1gxSGjT982QZ VjBQGKPPSgqWk0JTJtqnMxj mHquEFDg633X015m3zjUKWz lyEtcElCtkuvj0kvY287REH hcGVydzEyMjQwXHBhcGVyaD F4DNRyVP3zihkdPsMqGW0fd wnlRtJoJS7ezbx5ZvXlCT6k cmdiNzIwXGhlYWRlcnkwXGZ oa8YwwipmUS8oS4Vfe0O6bT 9maXRcZGVmdGFiNzIwXGZvc t0gbYCdJQrpv7BvWZE7nnC4 rQNheCGsTXBjIK75Haicj7E dEjnmVEQ7VSOqbqYqz0Uno4 wyUwQrovYzR1boM9HiMETsL SWqHEHtLiHhyyFls1Hyv5Eo uFCbcMb9e0vkEGMrAAIisDa xa0pvNSX3NUTrG8N3iMVev5 lgIIcpCJAaiHA7uvsbOQafV MOaviP2qvlsBSsfHIOcvQM8 zwqwPLluVGIpVwJ7bkubBMc aMOAwSVO5GDmef310SOR7MM xzYmtwYWdlXHBnbmNvbnRcc GduZGVjXHBsYWluXHBsYWlu XGYwXGZzMjRccWxccGxhaW5 kNcDdTsTrTMzzEL5sVVGaE0 gtpEIjYUEzRPOoK0xkSbUsq F1usTusARsvnfHfWXHmE8Ym udJmXMebRBRkjf3hiFcfPEp dEkMtZWLrk3y6rMI0zGPmhM Q2dLKwjCgcAM2ugPFjAZEvE 6Vlk0dvicFiiC8fAUPtPO7v ICJnYWxsYmxhZGRlciIgaXM sTHI0SjUntIRlCwApjHIkLp HzD74poZ28GMB9HFvbrEscj GFkZGVyIHdpdGggYSAwLjIg U04pbC4zkEAcJ0TnCLdnFX2 nCTMxDWcmZHBiXV4jaJMaIO R6lWAfyWViTYJ4p7MeZhZqf XH6UyALnSUfs6Fxe5DuAYvd RTT5moPiBX3mfF7rIRJhfE3 viLcsNR3eHFm5oGCcDG8hQe 4gVGhlIHNwZWNpbWVuIGlzI G0zTL8kYAP9vkWiXVByNRok WQYxss11mP2kbFAujJZ8UW4 FNV6aMModGFGpHQHnnNPeLV DivJS4mEuaZEOoDA3yrGRyT GVudGlmaWVkLiBUaGUgbXVj d3SmKMngMMzeGWGoFMV7lyR fAUX6nSF7USOoCD8uVTWrd0 RlUMsxJGTcr5NnwoCeFBHwa 6LzgVJrSvD5ULrzi5fri3Ax sRJdkT6bPlODmGNdl2UbaMX tEYCjaOUybcAnRxAaD66rmA fpP7gqSVHgnLNnr5XtqEB9e OAgHATdQ1Ans23cOIEjYPWf oPMjaEP3WDRmpP4lRNWePTG yAZhtgLdxmWxaYXoto0QyFA F7o4UnStBxdOA4GG0cgizfu hRlpxSFLO8yJWMcZXnrICNc cn0= MICROSCOPIC z4fdcLNgLTTuiEPtAjFxTMJ DESCRIPTION (test code mVODve0zdQSLxsAMtPsUgTg = 3371) NcZnRuYmpcdWMxXGRlZmYwe 5sov390wXSfa0jfPYMbHfE9 bFCwXSTvaNDnH351i8voi6u rsbNzwNO4SEMuMWN0VElphy LlslY5UJzogARxBtC5HBazb hLjNBmkplLfdtRySjd8VHDv R023XLN7dHpvd1gmAWZ5ROM bAVWzNnMuLr7kmEJvH823YT BoMUWRTXEvmCm4FSChliKsz uXphSBDa639S319y7jeFXWr siUvqElRhgend9ydG304FWH hcGVydzEyMjQwXHBhcGVyaD D2IHUvGS1ystvoCxRnKX3di ufjVqPaYA9zpxq3NaSgVR0o cmdiNzIwXGhlYWRlcnkwXGZ zo0NizhlgFU8xX1Yzs8D2eH 9maXRcZGVmdGFiNzIwXGZvc l5mnMBjYSxns6BoBTC3fwM8 iFGgiMMuRHEoIN77Nogwg8U oGvziJUJ7LQEbzlDes9Dgx1 ptNiTqhcEzU6cgE7UcTGGsF PEcOCQrYmGsyrClm2Qpv2Ea mICgkIa6o9wrQBXxTJEtoHq qn7heWYB0UGRuJ0I0bJItc0 iaQHmkMANfbTO3rjtnKSfnK LYvrcI2yhsfZEwaELHrxDJ8 hoqsQCggEKOxSnT6yzawJZl xPFAgIXP9IRamx365NNI1PU xzYmtwYWdlXHBnbmNvbnRcc GduZGVjXHBsYWluXHBsYWlu XGYwXGZzMjRccWxccGxhaW5 rKxBlLsAjHYmaXO0gPXTvQ9 ngsTZzRYXyQFNkJ9nyFmFps C9jqTfeUQpxroQkIOGeksPb pw4mUF3ysRQdyV== Gross assessment was [facility] performed at ([facility], code = 2777) Department of Pathology, [address] [place] [address], Technical component [facility] was performed at ([facility], code = 2778) Department of Pathology, [address] [place] [address], Professional component [facility] was performed at ([facility], code = 2779) Department of Pathology, [address] [place] [address], [facility] [id number] 11:38:00Surgical Pathology Report Case: [id number] Authorizing Provider: Mary Alice Peralta MD Collected: 02/23/2020 03:44 PM Ordering Location: [facility] PERIOPERATIVE Received: 02/24/2020 09:06 AM SERVICES Pathologist: Jo Sams MD Specimen: Gallbladder A. GALLBLADDER, CHOLECYSTECTOMY: - CHRONIC CHOLECYSTITIS. Signing Pathologist Direct Phone Line: [phone] signed by Jo Sams MD on 02/26/2020 at 11:38 [id number] pancreatitis Gallbladder Received in formalin labeled with the patient's name, accession number and "gallbladder" is a 9.0 x 3.5 x 2.3 cm intact gallbladder with a 0.2 cm in length x 0.2 cm in diameter attached cystic duct. The serosa is purple-pink, smooth and hyperemic. The specimen is opened to reveal approximately 5 mL of green bile. Calculi are not identified. The mucosa is green, trabeculated and displays a sparse amount of yellow stippling. The wall measures 0.2 cm thick. Manager Scheduling sections are submitted in A1-A2, with the inked cystic duct margin in A1. PA/ew Performed.[facility], Department of Pathology, [address] [place], [place] [id number], [facility], [facility] of [facility], [address] [place] [address], [facility], Department of Pathology, [address] [place] [address], Xdhas metabolic panel 2020-02-24 07:35:00 Test Item Value Reference Range Interpretation Comments Sodium (test code = 139 meq/L 861-319 0999-2) Potassium (test code = 4.5 meq/L 3.5-5.1 2823-3) Chloride (test code = 105 meq/L 98-107 2075-0) CO2 (test code = 26 meq/L 22-29 2028-9) BUN (test code = 2 mg/dL 7-21 L 3094-0) Creatinine (test code 0.55 mg/dL 0.57-1.25 L = 2160-0) Glucose (test code = 114 mg/dL 70-105 H 2345-7) Calcium (test code = 8.2 mg/dL 8.4-10.2 L 16295-0) EGFR (test code = 127 mL/min/1.73 [place] [address]-9) NOT ACCURATE CREATININE CLEARANCE IN PREDICTING GLOMERULAR FILTRATION RATE . ESTIMATED GFR I S NOT APPLICABLE FOR DIALYSIS PATIENTS. [place] (test code = [place]) Mental Health Worker ID - TEAGAN Dowling Lab Interpretation Abnormal (test code = 73313-4) [facility] [id number] 07:35:00 Test Item Value Reference Range Interpretation Comments Protein, Total (test 6.0 See_Comment [Autom ated code = 2885-2) message] The system which generated this result transmit magda reference range : 6.0 - 8.3 gm/dL . The reference range was not u sed to interpret th is result as normal/abnormal . Albumin (test code = 3.0 g/dL 3.5-5 L 02170-0) Total Bilirubin (test 0.3 mg/dL 0.2-1.2 code = 1974-2) Bilirubin, Direct 0.2 mg/dL 0.1-0.5 (test code = 1968-7) Alkaline Phosphatase 141 U/L 40-150 (test code = 6768-6) AST (test code = 59 U/L 5-34 H 1920-8) ALT (test code = 81 U/L 6-55 H 1742-6) [place] (test code = [place]) Mental Health Worker ID - TEAGAN Dowling Lab Interpretation Abnormal (test code = 88886-3) [facility] Center[facility]esium2020-10-[facility] 07:35:00 Test Item Value Reference Range Interpretation Comments Magnesium (test code = 1.4 mg/dL 1.6-2.6 L 64547-5) [place] (test code = [place]) Mental Health Worker ID - TEAGAN C Lab Interpretation (test Abnormal code = 09371-3) [facility] Center[facility]IUM2020-10-06 07:35:00 Test Item Value Reference Range Interpretation Comments MAGNESIUM (BEAKER) (test code = 1.4 mg/dL 1.6-2.6 L 627) Mental Health Worker ID - TEAGAN CBASIC METABOLIC [id number] 07:35:00 Test Item Value Reference Range Interpretation [...] S NOT APPLICABLE FOR DIALYSIS PATIEN TS. Mental Health Worker ID - TEAGAN CHEPATIC FUNCTION [id number] 07:35:00 Test Item Value Reference Range Interpretation [...] code = 81 U/L 6-55 H 347) Mental Health Worker ID - TEAGAN CCBC (Hemogram only)2020-02-24 05:46:00 Test Item Value Reference Range Interpretation Comments WBC (test code = 6690-2) 8.9 See_Comment [A utomated message] The system Tyromer generated this result transmitted ref erence range: 3.5 - 10 .5 K/L. The refe rence range was not u sed to interpret this result as normal/abnor mal. RBC (test code = 789-8) 4.19 See_Comment [Au tomated message] The system Tyromer generated this result transmitted ref erence range: 3.93 - 5 .22 M/L. The refe rence range was not u sed to interpret this result as normal/abnor mal. MCHC (test code = 786-4) 31.4 See_Comment L [A utomated message] The system Tyromer generated this result transmitted ref erence range: 32.2 - 3 5.5 GM/DL. The refe rence range was not u sed to interpret this result as normal/abnor mal. Hematocrit (test code = 35.0 % 34.1-44.9 4544-3) MCV (test code = 787-2) 83.5 fL 79.4-94.8 MCH (test code = 785-6) 26.3 pg 25.6-32.2 RDW (test code = 788-0) 14.1 % 11.7-14.4 Platelets (test code = 329 See_Comment [Aut omated message] 777-3) The system Tyromer generated this result transmitted ref erence range: 150 - 45 0 K/CU MM. The referen ce range was not u sed to interpret this result as normal/abnor mal. MPV (test code = 9.9 fL 9.4-12.3 32748-1) nRBC (test code = 413) 0 See_Comment [Aut omated message] The system Tyromer generated this result transmitted ref erence range: 0 - 0 /1 00 WBC. The refere nce range was not u sed to interpret this result as normal/abnor mal. Lab Interpretation (test Abnormal code = 91327-5) [facility] (HEMOGRAM ONLY)2020-02-24 05:46:00 Test Item Value Reference [...] (BEAKER) (test code = 413) BASIC METABOLIC [id number] 07:17:00 Test Item Value Reference Range Interpretation [...] S NOT APPLICABLE FOR DIALYSIS PATIEN TS. Mental Health Worker ID - [id number] 07:11:00 Test Item Value Reference Range Interpretation Comments MAGNESIUM (BEAKER) (test code = 1.4 mg/dL 1.6-2.6 L 627) Mental Health Worker ID - EDASIHEPATIC FUNCTION [id number] 07:11:00 Test Item Value Reference Range Interpretation [...] code = 76 U/L 6-55 H 347) Mental Health Worker NISH - PRINCE, [id number] 07:09:00 Test Item Value Reference Range Interpretation Comments ABO Grouping (test code = 2588) O Rh Factor (test code = 2589) POS [facility] CenterType and screen, [id number] 06:56:00 Test Item Value Reference Range Interpretation Comments ABO/RH AUTOMATED (BEAKER) (test O POSITIVE code = 2260) Ab Scrn (test code = 890-4) NEGATIVE [facility] CenterCBC (HEMOGRAM ONLY)2020-02-23 06:22:00 Test Item Value Reference [...] 0-0 (BEAKER) (test code = 413) Screen, [id number] 17:03:00 Test Item Value Reference Range Interpretation Comments Preg Test, Ur (test code = 2112-1) Negative [facility] CenterPREGNANCY SCREEN, [id number] 17:03:00 Test Item Value Reference Range Interpretation Comments TEST URINE (BEAKER) (test Negative code = 583) HEPATIC FUNCTION [id number] 05:02:00 Test Item Value Reference Range Interpretation [...] code = 83 U/L 6-55 H 347) Mental Health Worker ID - [id number] 13:08:00 Test Item Value Reference Range Interpretation Comments Triglycerides (test 64 mg/dL code = 2571-8) [place] (test code = [place]) TRIGLYCERIDE REFERENCE RANGELow Risk <150Borderline Risk 150-199High Risk 200-499Very High Risk >=500Operator ID - ROSIANG [facility] CenterTRIGLYCERIDES2020-10-03 13:08:00 Test Item Value Reference Range Interpretation Comments TRIGLYCERIDES (BEAKER) (test code = 64 mg/dL 540) TRIGLYCERIDE REFERENCE RANGELow Risk <150Borderline Risk 150-199High Risk 200-499Very High Risk>=500Operator ID - ROSIANGMR, ABDOMEN, [id number] 07:53:00Unlisted Reason for Exam - Click Yes [...] pancreatitis, no loculated fluid collections. Signed: Mari Denny MDRthe [facility] Verified Date/Time: 02/21/2020 07:53:35 Reading Location: [facility] C013Y CT Body Reading Room MR abdomen without IV contrast [id number] 07:53:00Interface, External Ris In - 02/21/2020 7:55 [...] pancreatitis, no loculated fluid collections. Signed: Mari Dennythe [facility] [place] Verified Date/Time: 02/21/2020 07:53:35 Reading Location: [facility] C013Y CT Body Reading [facility] MET[facility]OLIC [id number] 05:09:00 Test Item Value Reference Range Interpretation [...] S NOT APPLICABLE FOR DIALYSIS PATIEN TS. Mental Health Worker ID Susan CORLEY LHEPATIC FUNCTION [id number] 05:09:00 Test Item Value Reference Range Interpretation [...] code = 102 U/L 6-55 H 347) Mental Health Worker ID - BARNEY [id number] 05:09:00 Test Item Value Reference Range Interpretation Comments MAGNESIUM (BEAKER) (test code = 1.6 mg/dL 1.6-2.6 627) Mental Health Worker ID Susan CORLEY LCBC (HEMOGRAM ONLY)2020-02-21 04:37:00 Test Item Value [...] Not Detected, (test code = Negative, See 78029-0) external report for linked test SARS-COV-2 [facility] PERFORMING LAB (test code = 29030-6) [place] (test code = Negative result for [...] of the Act. Fact Sheet for Healthcare Providers:https://www.[employer]/sites/default/f alphonse/product/documents/F act_Sheet_HC_Providers_L dwg_CLPD-ZbJ-1.pdf Fact Sheet for Healthcare Patients:https://www.[employer]/sites/default/fi les/product/documents/Fa ct_Sheet_Patients_Lyra_S ARS-CoV-2.pdf Performing Laboratory:[facility] [place] [address] [facility] ([facility])2020-02-20 16:48:00 Test Item Value Reference Range Interpretation Comments SARS-COV2/RT-PCR (test Negative Not Detected, Negative, code = 5041196) See external report for linked test SARS-COV-[address] [facility] (test code = 1802322) Negative result for this test determines that [...] 564(g) of the Act.Fact Sheet for Healthcare Providers:https://www.[employer]/sites/default/files/product/documents/Fact_Shee c_NJ_Fqxcaxuhf_Cmif_DCFG-UdA-2.pdfFact Sheet for Healthcare Patients:https://www.[employer]/sites/default/files/product/ documents/Aeuo_Xpagd_Lsjmrbov_Vqlh_HQXU-WdD-3.pdfPerforming Laboratory:[facility], [place] [id number] 07:22:00 Test Item Value Reference Range Interpretation Comments MAGNESIUM (BEAKER) (test code = 1.9 mg/dL 1.6-2.6 627) Mental Health Worker ID Susan AVILA FBASIC METABOLIC [id number] 07:22:00 Test Item Value Reference Range Interpretation [...] S NOT APPLICABLE FOR DIALYSIS PATIEN TS. Mental Health Worker ID Susan AVILA FHEPATIC FUNCTION [id number] 07:22:00 Test Item Value Reference Range Interpretation [...] code = 162 U/L 6-55 H 347) Mental Health Worker ID - MARGARITA FCBC with platelet count + automated [id number] 06:03:00 Test Item Value Reference Range Interpretation Comments WBC (test code = 6690-2) 8.4 See_Comment [A utomated message] The system Tyrom[employer] generated this result transmitted ref erence range: 3.5 - 10 .5 K/L. The refe rence range was not u sed to interpret this result as normal/abnor mal. RBC (test code = 789-8) 4.70 See_Comment [Au tomated message] The system [employer] generated this result transmitted ref erence range: 3.93 - 5 .22 M/L. The refe rence range was not u sed to interpret this result as normal/abnor mal. MCHC (test code = 786-4) 31.3 See_Comment L [A utomated message] The system [employer] generated this result transmitted ref erence range: 32.2 - 3 5.5 GM/DL. The refe rence range was not u sed to interpret this result as normal/abnor mal. Hematocrit (test code = 39.3 % 34.1-44.9 4544-3) MCV (test code = 787-2) 83.6 fL 79.4-94.8 MCH (test code = 785-6) 26.2 pg 25.6-32.2 RDW (test code = 788-0) 14.2 % 11.7-14.4 Platelets (test code = 346 See_Comment [Aut omated message] 777-3) The system [employer]rom[employer] generated this result transmitted ref erence range: 150 - 45 0 K/CU MM. The referen ce range was not u sed to interpret this result as normal/abnor mal. MPV (test code = 9.8 fL 9.4-12.3 30574-5) nRBC (test code = 413) 0 See_Comment [Aut omated message] The system [employer] generated this result transmitted ref erence range: 0 - 0 /1 00 WBC. The refere nce range was not u sed to interpret this result as normal/abnor mal. % Neutros (test code = 72 % 429) % Lymphs (test code = 20 % 430) % Monos (test code = 7 % 431) % Eos (test code = 432) 1 % % Baso (test code = 437) 0 % # Neutros (test code = 6.00 See_Comment [Aut omated message] 670) The system [employer]rom[employer] generated this result transmitted ref erence range: 1.56 - 6 .13 K/L. The refe rence range was not u sed to interpret this result as normal/abnor mal. # Lymphs (test code = 1.67 See_Comment [Auto mated message] 414) The system [employer] generated this result transmitted ref erence range: 1.18 - 3 .74 K/L. The refe rence range was not u sed to interpret this result as normal/abnor mal. # Monos (test code = 0.62 See_Comment H [Autom ated message] 415) The system [employer] generated this result transmitted ref erence range: 0.24 - 0 .36 K/L. The refe rence range was not u sed to interpret this result as normal/abnor mal. # Eos (test code = 416) 0.04 See_Comment [Au tomated message] The system Tyrom[employer] generated this result transmitted ref erence range: 0.04 - 0 .36 K/L. The refe rence range was not u sed to interpret this result as normal/abnor mal. # Baso (test code = 417) 0.02 See_Comment [A utomated message] The system Tyromer generated this result transmitted ref erence range: 0.01 - 0 .08 K/L. The refe rence range was not u sed to interpret this result as normal/abnor mal. Immature 0 % 0-1 Granulocytes-Relative (test code = 2801) Lab Interpretation (test Abnormal code = 46350-3) [facility] W/PLT COUNT & AUTO [id number] 06:03:00 Test Item Value Reference Range Interpretation [...] % 0-1 PERCENT (BEAKER) (test code = 2804)
[2021-01-20 09:12] LABS: Basophils % 0.4 % (0-1.3); Lymphocytes % 33.9 % (15.3-44.8)
[2021-01-20 09:34] LABS: BUN Blood Urea Nitrogen 8 mg/dL (7-18); Bicarbonate 30 mmol/L (21-32); Glucose Level 89 mg/dL (74-106); Potassium 4.4 mmol/L (3.5-5.1); Sodium Level 139 mmol/L (136-145)
[2021-01-20 10:25] LABS: Urine Blood Trace-intact (Negative); Urine Glucose Negative (Negative); Urine Protein Negative (Negative); Urine pH 7.5 (5.0-7.0)
[2021-01-20] MEDS ORDERED: KETOROLAC 30 MG/ML INJ ONE (10:50)
[2021-01-20] MEDS ORDERED: DIPHENHYDRAMINE 50 MG/ML VIAL ONE (10:50)
[2021-01-20] MEDS ORDERED: METOCLOPRAMIDE 10 MG/2mL INJ ONE (10:50)
[2021-01-20] MEDS ORDERED: NA CHLORIDE 0.9% 1,000 ML ONE (10:50)
[2021-01-20 10:55] LABS: SARS-COV-2 RT PCR NEGATIVE (NEGATIVE)
--- NOTE | 2021-01-20 11:12 | ER ---
Nurse's Notes [facility] Name: Feliciano Blair Age: 35 yrs Sex: Female : 1985 Arrival Date: 01/20/2021 Time: 08:39 Bed 10 Private MD: Diagnosis: Migraine, unspecified, not intractable, without status migrainosus;Viral infection, unspecified Presentation: 01/20 08:55 Chief complaint: Patient states: Headache, fever for 3 days, lightheaded, body aches x jl7 1 week. Coronavirus screen: Vaccine status: Patient reports being unvaccinated. fatigue, fever, headache, muscle pain, Client presents with at least one sign or symptom that may indicate coronavirus-19. Standard/surgical mask placed on the client. Provider contacted for isolation considerations. Ebola Screen: No symptoms or risks identified at this time. Initial Sepsis Screen: Does the patient meet any 2 criteria? No. Patient's initial sepsis screen is negative. Does the patient have a suspected source of infection? No. Patient's initial sepsis screen is negative. Risk Assessment: Do you want to hurt yourself or someone else? Patient reports no desire to harm self or others. Onset of symptoms was January 12, 2021. 08:55 Method Of Arrival: Ambulatory [facility] 08:55 Acuity: JOSE 3 jl7 Triage Assessment: 08:58 Headache History: The patient has had previous headaches and this one is different than jl7 previous episodes, and this one is more severe than previous episodes. General: Appears in no apparent distress. uncomfortable, Behavior is calm, cooperative, appropriate for age. Pain: Complains of pain in YUAN Pain currently is 10 out of 10 on a pain scale. Pain began 1 week Also complains of no other associated symptoms. Neuro: Level of Consciousness is awake, alert, obeys commands, Oriented to person, place, time, situation. Cardiovascular: Respiratory: Airway is patent Respiratory effort is even, unlabored, Respiratory pattern is regular, symmetrical. Derm: Skin is pink, warm \T\ dry. 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 Adult Immunizations. - Social history:: Smoking status: Patient denies any tobacco usage or history of. Screenin:19 Abuse screen: Denies threats or abuse. Nutritional screening: No deficits noted. vg1 Tuberculosis screening: No symptoms or risk factors identified. Fall Risk No fall in past 12 months (0 pts). No secondary diagnosis (0 pts). IV access (20 points). Ambulatory Aid- None/Bed Rest/Nurse Assist (0 pts). Gait- Normal/Bed Rest/Wheelchair (0 pts) Mental Status- Oriented to own ability (0 pts). Total Fraire Fall Scale indicates No Risk (0-24 pts). Assessment: 10:16 General: Appears in no apparent distress. uncomfortable, Behavior is calm, cooperative. vg1 Pain: Complains of pain in head Pain currently is 8 out of 10 on a pain scale. Pain began x1 week Noted to be grimacing. Neuro: Level of Consciousness is awake, alert, obeys commands, Oriented to person, place, time, situation, Reports dizziness, headache. Cardiovascular: Patient's skin is warm and dry. Respiratory: Airway is patent Respiratory effort is even, unlabored. GI: Abdomen is flat, Reports nausea, vomiting. : Reports stated LMP was 01/12/21 and that's when s/s of headache began. Also stated was having a heavy menstrual period and was bleeding more than normal. EENT: No signs and/or symptoms were reported regarding the EENT system. Derm: Skin is intact, is healthy with good turgor. Musculoskeletal: Circulation, motion, and sensation intact. Vital Signs: 08:55 BP 141 / 92; Pulse 80; Resp 19; Temp 97; Pulse Ox 100% ; Weight 72.57 kg (R); jl7 10:18 BP 119 / 75; Pulse 68; Resp 16; Pulse Ox 100% ; vg1 11:23 BP 106 / 74; Pulse 71; Resp 14; Pulse Ox 100% on R/A; Pain 4/10; ss Perdido Coma Score: 11:01 Eye Response: spontaneous(4). Verbal Response: oriented(5). Motor Response: obeys kb commands(6). Total: 15. ED Course: 08:39 Patient arrived in ED. rg4 08:58 Triage completed. jl7 08:58 Arm band placed on right wrist. Patient placed in waiting room, Patient notified of jl7 wait time. 09:01 Initial lab(s) drawn, by me, sent to lab. COVID swab sent to lab. Inserted saline lock: jl7 20 gauge in right antecubital area, using aseptic technique. Blood collected. 10:12 Radha Blair RN is Primary Nurse. vg1 10:16 Bre Yao FNP-C is [facility]. kb 10:16 Franklin Rehman MD is Attending Physician. kb 10:19 Patient has correct armband on for positive identification. Bed in low position. Call vg1 light in reach. 10:19 No provider procedures requiring assistance completed. vg1 11:23 IV discontinued, intact, bleeding controlled, No redness/swelling at site. Pressure ss dressing applied. Administered Medications: 10:28 Drug: NS 0.9% 1000 ml Route: IV; Rate: 1000 ml; Site: right antecubital; vg1 11:22 Follow up: IV Status: Completed infusion; IV Intake: 1000ml ss 10:28 Drug: Reglan (metoCLOPramide) 10 mg Route: IVP; Site: right antecubital; vg1 11:22 Follow up: Response: No adverse reaction ss 10:30 Drug: Ketorolac 15 mg Route: IVP; Site: right antecubital; vg1 11:22 Follow up: Response: No adverse reaction; Pain is decreased ss 10:32 Drug: Benadryl (diphenhydrAMINE) 12.5 mg Route: IVP; Site: right antecubital; vg1 11:22 Follow up: Response: No adverse reaction; Marked relief of symptoms ss Intake: 11:22 IV: 1000ml; Total: 1000ml. ss Outcome: 11:12 Discharge ordered by . kb 11:23 Discharged to home ambulatory. ss 11:23 Condition: good 11:23 Discharge instructions given to patient, Instructed on discharge instructions, follow up and referral plans. Demonstrated understanding of instructions, follow-up care. 11:24 Patient left the ED. ss Signatures: Bre Yao FNP-C FNP-Ckb Smirch, Shelby, RN RN ss Susan Blair rg4 Carol Ann Stokes RN RN jl7 Radha Blair RN RN vg1
--- NOTE | 2021-01-20 11:13 | EDPHYS ---
Physician Documentation [facility] Name: Feliciano Blair Age: 35 yrs Sex: Female : 1985 Arrival Date: 01/20/2021 Time: 08:39 Bed 10 Private MD: BERNICE Physician Franklin Rehman HPI: 01/20 11:10 This 35 yrs old Female presents to ER via Ambulatory with complaints of kb Headache. 11:10 The patient complains of pain to the top of head. The patient describes the headache as kb throbbing. Onset: The symptoms/episode began/occurred 1 week(s) ago. Associated signs and symptoms: Pertinent positives: fever, bodyaches. Severity of symptoms: At its worst the pain was moderate, in the emergency department the pain is unchanged. Headache History: The patient has had previous headaches. The symptoms are alleviated by nothing. the symptoms are aggravated by lights. The patient has not experienced similar symptoms in the past. The patient has not recently seen a physician. 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 Adult Immunizations. - Social history:: Smoking status: Patient denies any tobacco usage or history of. ROS: 11:02 Neuro: Positive for headache. kb 11:10 Constitutional: Positive for body aches, chills, fever, malaise. kb 11:10 All other systems are negative. 11:12 Respiratory: Negative for shortness of breath, cough, wheezing, and pleuritic chest kb pain. Exam: 11:10 Constitutional: This is a well developed, well nourished patient who is awake, alert, kb and in no acute distress. Head/Face: Normocephalic, atraumatic. ENT: Moist Mucous membranes Cardiovascular: Regular rate and rhythm with a normal S1 and S2. No gallops, murmurs, or rubs. No pulse deficits. Respiratory: Respirations even and unlabored. No increased work of breathing, no retractions or nasal flaring. Abdomen/GI: Soft, non-tender. No distention Skin: Warm, dry with normal turgor. Normal color. MS/ Extremity: Pulses equal, no cyanosis. Neurovascular intact. Full, normal range of motion. Neuro: Awake and alert, GCS 15, oriented to person, place, time, and situation. Moves all extremities. Normal gait. Psych: Awake, alert, with orientation to person, place and time. Behavior, mood, and affect are within normal limits. Vital Signs: 08:55 BP 141 / 92; Pulse 80; Resp 19; Temp 97; Pulse Ox 100% ; Weight 72.57 kg (R); jl7 10:18 BP 119 / 75; Pulse 68; Resp 16; Pulse Ox 100% ; vg1 11:23 BP 106 / 74; Pulse 71; Resp 14; Pulse Ox 100% on R/A; Pain 4/10; ss Guero Coma Score: 11:01 Eye Response: spontaneous(4). Verbal Response: oriented(5). Motor Response: obeys kb commands(6). Total: 15. MDM: 10:16 Patient medically screened. kb 11:01 Data reviewed: vital signs, nurses notes. Data interpreted: Pulse oximetry: on room air kb is 100 %. Interpretation: normal. Counseling: I had a detailed discussion with the patient and/or guardian regarding: the historical points, exam findings, and any diagnostic results supporting the discharge/admit diagnosis, lab results, the need for outpatient follow up, a family practitioner, to return to the emergency department if symptoms worsen or persist or if there are any questions or concerns that arise at home. Response to treatment: the patient's symptoms have resolved after treatment. 01/20 08:58 Order name: CBC with Diff; Complete Time: 09:52 kb 01/20 08:58 Order name: Basic Metabolic Panel; Complete Time: 09:52 kb 01/20 08:58 Order name: Warren Screen Profile; Complete Time: 09:52 kb 01/20 10:24 Order name: Urine Dipstick-Ancillary; Complete Time: 10:26 EDMS 01/20 08:58 Order name: Urine Dipstick-Ancillary (obtain specimen); Complete Time: 10:24 kb 01/20 10:30 Order name: Urine --Ancillary (enter results); Complete Time: 10:58 em1 01/20 10:55 Order name: COVID-19/FLU A+B; Complete Time: 10:58 EDMS Administered Medications: 10:28 Drug: NS 0.9% 1000 ml Route: IV; Rate: 1000 ml; Site: right antecubital; vg1 11:22 Follow up: IV Status: Completed infusion; IV Intake: 1000ml ss 10:28 Drug: Reglan (metoCLOPramide) 10 mg Route: IVP; Site: right antecubital; vg1 11:22 Follow up: Response: No adverse reaction ss 10:30 Drug: Ketorolac 15 mg Route: IVP; Site: right antecubital; vg1 11:22 Follow up: Response: No adverse reaction; Pain is decreased ss 10:32 Drug: Benadryl (diphenhydrAMINE) 12.5 mg Route: IVP; Site: right antecubital; vg1 11:22 Follow up: Response: No adverse reaction; Marked relief of symptoms ss Disposition: 01/21 08:24 Co-signature as Attending Physician, Franklin eRhman MD I agree with the assessment and gee plan of care. Disposition Summary: 01/20/21 11:12 Discharge Ordered Location: Home kb Condition: Stable kb Diagnosis - Migraine, unspecified, not intractable, without status migrainosus kb - Viral infection, unspecified kb Followup: kb - With: Emergency Department - When: As needed - Reason: Worsening of condition Followup: kb - With: Private Physician - When: 2 - 3 days - Reason: Recheck today's complaints, Continuance of care, Re-evaluation by your physician Discharge Instructions: - Discharge Summary Sheet kb - Viral Illness, Adult kb Forms: - Medication Reconciliation Form kb - Thank You Letter kb - Antibiotic Education kb - Prescription Opioid Use kb - Work release form vg1 Signatures: Dispatcher [employer] EDBre Tapia, OUT OF TOWN COLLECTION CLERK-C OUT OF TOWN COLLECTION CLERK-Franklin Jean MD MD cha Leal, Jahala RN RN jl7 Radha Blair RN RN vg1 Mely Foster RN ss Corrections: (The following items were deleted from the chart) 01/20 10:02 08:58 Influenza Screen (A \T\ B)+BA.LAB.BRZ ordered. EDMS EDMS 10: 08:58 CORONAVIRUS+MR.LAB.BRZ ordered. EDMS EDMS 11:10 11:02 Constitutional: Negative for fever, chills, and weight loss, kb kb
[2021-01-20 11:30] VITALS: TEMP 97; O2SAT 100
[2021-01-20 11:33] VITALS: BP 106/74
== END 2021-01-20 11:24 | disposition home or self-care (01) ==
LOC: ER 08:36
DX: G43.009 Migraine without aura, not intractable, without status migrainosus (principal); B34.9 Viral infection, unspecified; Z20.822 Contact with and (suspected) exposure to COVID-19
CPT/HCPCS: 96361; 85025; 80048; 36415; 86308; 81025; 81003; 0240U; 96375; 96374; 99283; J2765; J1200; J7030

== ENCOUNTER 2022-02-08 14:11 | Emergency (ER) | payer SELFPAY ==
--- OUTSIDE RECORDS SUMMARY | 2022-02-08 14:15 | XMS REPORT | Continuity of Care Document ---
:1985 Author Organization [facility] t Address [address] [place] [address] Care Team Providers Name Role Phone Izabela Jaeger MD Primary Care Physician [phone] AKANKSHA CHEATHAM Attending Clinician Unavailable Chaparrita LORENZ, Akanksha Attending Clinician Aida LORENZ, Satinder Pat Attending Clinician Beth LORENZ, Minal Mcdonald Attending Clinician [phone] Homer Rajput MD, Ruthie Robles Attending Clinician [phone] Davide LORENZ, Aldo Davis Attending Clinician [phone] Jamila Harrington CRNA Attending Clinician [phone] Kathryn LORENZ, Mary Alice Grover Attending Clinician AKANKSHA CHEATHAM Admitting Clinician Unavailable Problems Condition Condition Condition Status Onset Resolution Last Treating Co mments Source Name Details Category Date Date Treatment Clinician Date Pancreatit Pancreatit Disease Active 2019-[address] [facility] Gallstone Gallstone Disease Active 2019-[address] [facility] pancreatit pancreatit 0-02 Amanda k[facility] Allergies, Adverse Reactions, Alerts Allergy Allergy Status Severity Reaction(s) Onset Inactive Treating Comm ents Source Name Type Date Date Clinician NO KNOWN Allergy Active [facility] Social History Social Habit Start Date Stop Date Quantity Comments Source Sex Ass[birth year] At [birth year] HAROLDO Saenz 00:[facility]:00 [facility] Medications Ordered Filled Start Stop Current Ordering Indication Dosage Frequency Signature Comments Components Source Medication Medication Date Date Medication? Clinician (SIG) Name Name Dose 0 No Unknown 11-23 00:00: 00 Vitamin D3 2020- No 1(400 10 mcg (400 0-27 unit) unit) 00:00: tablet 00 Vitamin D3 2020-0 No 1(400 10 mcg (400 6-20 unit) unit) 00:00: tablet 00 Vitamin D2 2020-0 No 1(50,00 1,250 mcg 6-17 0 unit) (50,000 00:00: unit) 00 capsule phentermine 0 No 1mg 37.5 mg 5-21 tablet 00:00: 00 ibuprofen 2020-0 No 1mg 800 mg 5-21 tablet 00:00: 00 cyclobenzap 0 No 1mg rine 7.5 mg 5-21 tablet 00:00: 00 Vitamin D2 2020-0 No 1(50,00 1,250 mcg 3-16 0 unit) (50,000 00:00: unit) 00 capsule Proctofoam 0 No 1% HC 1 %-1 % 3-15 00:00: 00 acetaminoph 2019-05 Yes 2{tbl} Take [address] en-codeine 0-06 tablets by [facility] (TYLENOL 11:29: mouth Medical #3) 300-30 31 every 6 Center mg per (six) tablet hours as needed for Pain. ondansetron 2019-05 Yes 4mg Take [address] (ZOFRAN-ODT 0-06 by mouth [facility] ) 4 MG 11:29: every 8 Medical disintegrat 31 (eight) Cente r ing tablet hours as needed for Nausea. acetaminoph 2019-05 Yes 2{tbl} Take [address] en-codeine 0-06 tablets by [facility] (TYLENOL 11:29: mouth Medical #3) 300-30 31 every 6 Center mg per (six) tablet hours as needed for Pain. ondansetron 2020-1 Yes 4mg Take [address] (ZOFRAN-ODT 0-06 by mouth [facility] ) 4 MG 11:29: every 8 Medical disintegrat 31 (eight) Cente r ing tablet hours as needed for Nausea. levoFLOXaci 2019-05- No 500mg QD Take [address] [facility] 0-06 10-06 mg by [facility] (LEVAQUIN) 08:51: 00:00 mouth Medic al 500 MG 47 :00 daily Take Center tablet one tablet by mouth daily for 7 days . phentermine 2018-0 No 1mg 37.5 mg 9-25 tablet 00:00: 00 promethazin 2018-0 No 5mg/5 e-DM 6.25 3-21 mL mg-15 mg/5 00:00: mL oral 00 syrup fluticasone 2018-0 No 2mcg/ac propionate 3- tuation 50 00:00: mcg/actuati 00 on nasal spray,suspe nsion loratadine 2018-0 No 1mg 10 mg 3-21 tablet 00:00: 00 loratadine 2018-0 No 1mg 10 mg 3-21 tablet 00:00: 00 Keflex 500 0 No 1mg mg capsule 3 00:00: 00 fluconazole 2017-0 No 1mg 150 mg 2-26 tablet 00:00: 00 Zithromax 2015-0 No 12mg Z-Chiki 250 1-26 mg tablet 00:00: 00 benzonatate 2015-0 No 2mg 100 mg 1-26 capsule 00:00: 00 Vital Signs Vital Name Observation Time Observation Value Comments Source HEIGHT 2020-02-20 00:00:00 165.1 cm WEIGHT 2020-02-20 00:00:00 95.255 kg HEIGHT 2020-02-20 00:00:00 165.1 cm WEIGHT 2020-02-20 00:00:00 95.255 kg BP Systolic 2021-11-28 09:25:00 126 mm[Hg] BP Diastolic 2021-11-28 09:25:00 76 mm[Hg] Weight Measured 2021-11-28 09:25:00 167.80 pounds Height Measured 2021-11-28 09:25:00 65.00 inches Body Temperature 2021-11-28 09:25:00 98.00 degrees Heart Rate 2021-11-28 09:25:00 56.00 /min Respiratory Rate 2021-11-28 09:25:00 18.00 /min BP Systolic 2021-09-05 08:58:00 137 mm[Hg] BP Diastolic 2021-09-05 08:58:00 84 mm[Hg] Weight Measured 2021-09-05 08:58:00 167.40 pounds Height Measured 2021-09-05 08:58:00 65.00 inches Body Temperature 2021-09-05 08:58:00 98.80 degrees Heart Rate 2021-09-05 08:58:00 64.00 /min Respiratory Rate 2021-09-05 08:58:00 17.00 /min BP Systolic 2021-06-09 17:46:00 135 mm[Hg] BP Diastolic 2021-06-09 17:46:00 83 mm[Hg] Weight Measured 2021-06-09 17:46:00 168.40 pounds Height Measured 2021-06-09 17:46:00 65.00 inches Body Temperature 2021-06-09 17:46:00 98.40 degrees Heart Rate 2021-06-09 17:46:00 68.00 /min Respiratory Rate 2021-06-09 17:46:00 BP Systolic 2021-03-16 08:34:00 114 mm[Hg] BP Diastolic 2021-03-16 08:34:00 75 mm[Hg] Weight Measured 2021-03-16 08:34:00 160.80 pounds Height Measured 2021-03-16 08:34:00 65.00 inches Body Temperature 2021-03-16 08:34:00 96.80 degrees Heart Rate 2021-03-16 08:34:00 60.00 /min Respiratory Rate 2021-03-16 08:34:00 18.00 /min BP Systolic 2021-01-25 11:28:00 102 mm[Hg] BP Diastolic 2021-01-25 11:28:00 65 mm[Hg] Weight Measured 2021-01-25 11:28:00 164.60 pounds Height Measured 2021-01-25 11:28:00 65.00 inches Body Temperature 2021-01-25 11:28:00 98.70 degrees Heart Rate 2021-01-25 11:28:00 64.00 /min Respiratory Rate 2021-01-25 11:28:00 BP Systolic 2021-01-13 08:50:00 114 mm[Hg] BP Diastolic 2021-01-13 08:50:00 74 mm[Hg] Weight Measured 2021-01-13 08:50:00 165.00 pounds Height Measured 2021-01-13 08:50:00 65.00 inches Body Temperature 2021-01-13 08:50:00 98.80 degrees Heart Rate 2021-01-13 08:50:00 63.00 /min Respiratory Rate 2021-01-13 08:50:00 17.00 /min Heart Rate 2020-12-21 08:53:00 59.00 /min Respiratory Rate 2020-12-21 08:53:00 17.00 /min BP Systolic 2020-12-21 08:53:00 113 mm[Hg] BP Diastolic 2020-12-21 08:53:00 74 mm[Hg] Weight Measured 2020-12-21 08:53:00 167.80 pounds Height Measured 2020-12-21 08:53:00 65.00 inches Body Temperature 2020-12-21 08:53:00 98.80 degrees BP Systolic 2020-12-07 09:11:00 131 mm[Hg] BP Diastolic 2020-12-07 09:11:00 75 mm[Hg] Weight Measured 2020-12-07 09:11:00 171.80 pounds Height Measured 2020-12-07 09:11:00 65.00 inches Body Temperature 2020-12-07 09:11:00 98.70 degrees Heart Rate 2020-12-07 09:11:00 64.00 /min Respiratory Rate 2020-12-07 09:11:00 17.00 /min BP Systolic 2020-11-27 16:03:00 110 mm[Hg] BP Diastolic 2020-11-27 16:03:00 51 mm[Hg] Weight Measured 2020-11-27 16:03:00 173.00 pounds Height Measured 2020-11-27 16:03:00 65.00 inches Body Temperature 2020-11-27 16:03:00 98.40 degrees Heart Rate 2020-11-27 16:03:00 96.00 /min Respiratory Rate 2020-11-27 16:03:00 16.00 /min BP Systolic 2020-11-02 14:30:00 107 mm[Hg] BP Diastolic 2020-11-02 14:30:00 67 mm[Hg] Weight Measured 2020-11-02 14:30:00 174.60 pounds Height Measured 2020-11-02 14:30:00 65.00 inches Body Temperature 2020-11-02 14:30:00 98.90 degrees Heart Rate 2020-11-02 14:30:00 57.00 /min Respiratory Rate 2020-11-02 14:30:00 16.00 /min Systolic blood 2020-02-24 09:01:00 119 mm[Hg] [facility] Diastolic blood 2020-02-24 09:01:00 72 mm[Hg] [facility] Heart rate 2020-02-24 09:01:00 53 /min [facility] Body temperature 2020-02-24 09:01:00 36.61 Kenna [facility] Respiratory rate 2020-02-24 09:01:00 14 /min [facility] Oxygen saturation in 2020-02-24 09:01:00 100 /min [facility] Arterial blood by Medical Ce nter Pulse oximetry BMI 2020-02-23 14:00:00 34.95 kg/m2 [facility] Body height 2020-02-23 14:00:00 165.1 cm [facility] Body weight 2020-02-23 14:00:00 95.255 kg [facility] Procedures Procedure Date / Time Performed Performing Clinician Sour e RHYTHM STRIP - SCAN 2020-02-27 09:01:36 Provider, Default [facility] TRANSFUSION SERVICE 2020-02-24 18:21:16 Provider, Default [facility] REPORT - SCAN [facility] BASIC METABOLIC PANEL (7) 2020-02-24 05:04:00 Minal Campos [facility] CBC (HEMOGRAM ONLY) 2020-02-24 05:04:00 Minal Campos [facility] HEPATIC FUNCTION PANEL 2020-02-24 05:04:00 Minal Campos [facility] MAGNESIUM 2020-02-24 05:04:[facility] 2020-02-23 15:44:00 Mary Alice Peralta [facility] LAPAROSCOPY,CHOLECYSTECTO 2020-02-23 14:17:00 Mary Alice Peralta [facility] ABORH, MANUAL 2020-02-23 06:27:00 Rosalia Nair [facility] BASIC METABOLIC PANEL (7) 2020-02-23 05:45:00 [facility] Minal Nitesh [facility] CBC (HEMOGRAM ONLY) 2020-02-23 05:45:00 [facility] HEPATIC FUNCTION PANEL 2020-02-23 05:45:00 [facility] MAGNESIUM 2020-02-23 05:45:00 [facility] TYPE AND SCREEN, 2020-02-23 05:45:00 Walter Jones [facility] SCREEN, URINE 2020-02-22 16:34:00 Walter Jones [facility] HEPATIC FUNCTION PANEL 2020-02-22 04:14:00 Zeny-GisellaAreli wesleyg In [facility] BASIC METABOLIC PANEL (7) 2020-02-21 04:16:00 Zeny-Gisella, Sung I n [facility] HEPATIC FUNCTION PANEL 2020-02-21 04:16:00 Zeny-Gisella, Sung In [facility] MAGNESIUM 2020-02-21 04:16:00 Zeny-Gisella, Sung In [facility] CBC (HEMOGRAM ONLY) 2020-02-21 04:16:00 Zeny-Gisella Sung In [facility] TRIGLYCERIDES 2020-02-21 04:16:00 Debbie [facility] MR ABDOMEN WITHOUT IV 2020-02-20 21:22:00 [facility] CONTRAST [facility] IGG SUBCLASS-4 ONLY 2020-02-20 15:19:00 [facility] SARS-COV2/RT-PCR ([facility] & 2020-02-20 10:39:00 Jarret Lewis [facility] REF LABS) [facility] BASIC METABOLIC PANEL (7) 2020-02-20 05:39:00 [facility] HEPATIC FUNCTION PANEL 2020-02-20 05:39:00 [facility] MAGNESIUM 2020-02-20 05:39:00 [facility] CBC W/PLT COUNT & AUTO 2020-02-20 05:39:00 [facility] Plan of Care Planned Activity Planned Date Details Comments Source Future Scheduled 2022-01-[address] [facility] Test 00:00:00 (#1) [code = [facility] INFLUENZA VACCINE (#1)] Future Scheduled 2021-05-[address] [facility] Test 00:00:00 (12+) [code = [facility] DEPRESSION SCREENING (12+)] Future Scheduled 2020-01-[address] [facility] Test 00:00:00 (#1) [code = [facility] INFLUENZA VACCINE (#1)] Future Scheduled [address] [facility] Test 00:00:00 malignant neoplasm of [facility] cervix (procedure) [code = 544939924] Future Scheduled [address] [facility] Test 00:00:00 [facility]procedure) [code = 784545478] Future Scheduled [address] [facility] Test 00:00:00 (procedure) [code = [facility] [id number]] Future Scheduled [address] [facility] Test 00:00:00 (procedure) [code = [facility] 90460340] Future Scheduled 2005 DTAP/TDAP/TD VACCINES [facility] Test 00:00:00 (1 - Tdap) [code = Medical C enter DTAP/TDAP/TD VACCINES (1 - Tdap)] Future Scheduled 2004 HEPATITIS C [facility]CRE[facility]ING [facility] Test 00:00:00 [code = [facility] S[facility]] Future Scheduled 1986 COVID-19 VACCINE (#1) [facility] Test 00:00:00 [code = COVID-[address] VACCINE (#1)] Goal Plan of Care Note [code = 05930-2] Goal Plan of Care Note [code = 03434-8] Goal Plan of Care Note [code = 23981-9] Goal Plan of Care Note [code = 08403-7] Goal Plan of Care Note [code = 28824-1] Goal Plan of Care Note [code = 72347-9] Goal Plan of Care Note [code = 99545-4] Goal Plan of Care Note [code = 69301-6] Goal Plan of Care Note [code = 78763-6] Goal Plan of Care Note [code = 27438-9] Goal Plan of Care Note [code = 68158-3] Goal Plan of Care Note [code = 22726-7] Goal Plan of Care Note [code = 56827-6] Goal Plan of Care Note [code = 36069-0] Goal Plan of Care Note [code = 43725-4] Goal Plan of Care Note [code = 47829-0] Goal Plan of Care Note [code = 05362-9] Goal Plan of Care Note [code = 65864-7] Goal Plan of Care Note [code = 57163-9] Goal Plan of Care Note [code = 01757-7] Goal Plan of Care Note [code = 17728-3] Goal Plan of Care Note [code = 48128-4] Goal Plan of Care Note [code = 40251-1] Goal Plan of Care Note [code = 58988-9] Goal Plan of Care Note [code = 16964-2] Goal Plan of Care Note [code = 93573-2] Goal Plan of Care Note [code = 18152-6] Goal Plan of Care Note [code = 20232-1] Encounters Start End Encounter Admission Attending Care Care Encounter Source Date/Time Date/Time Type Type Clinicians Facility Department ID 2020-02-20 [facility] [id number] [facility] 02:52:00 AKANKSHA 2021-11-28 2021-11-28 Outpatient [id number] 00:00:00 00:00:00 Visit [id number] 2020-02-20 2020-02-24 Hospital ER Akanksha Cheatham [facility] [id number] 02:52:00 11:29:00 Encounter Satinder Parra In [facility] 2020-02-23 2020-02-[address] [facility] [id number] [facility] 14:32:00 17:20:00 Event Jamila Harrington [facility] 2020-02-23 2020-02-23 Surgery Ozaki, [facility] [id number] 13:00:00 15:15:00 [facility] Results Test Description Test Time Test Comments Results Result Comments Source CBC W/AUTO DIFF 2021-01-26 00:00:00 Test Item Value Reference Range Interpretation Comme nts WBC (test code = 1001) 7.6 K/UL RBC (test code = 1002) 4.54 M/UL HEMOGLOBIN (test code = 1003) 12.3 G/DL HEMATOCRIT (test code = 1004) 37.0 % MCV (test code = 1005) 81.5 fL MCH (test code = 1006) 27.1 PG MCHC (test code = 1007) 33.2 G/DL RDW (test code = 1038) 12.4 % NEUTROPHILS (test code = 1008) 51.4 % LYMPHOCYTES (test code = 1010) 37.6 % MONOCYTES (test code = 1011) 8.3 % EOSINOPHILS (test code = 1012) 1.9 % BASOPHILS (test code = 1013) 0.5 % IMMATURE GRANULOCYTES (test code = 1036) 0.3 % NUCLEATED RBCS (test code = 1065) 0.0 /100WBC'S PLATELET COUNT (test code = 1015) 412 K/UL ABSOLUTE NEUTROPHILS (test code = 1066) 3.89 K/UL ABSOLUTE LYMPHOCYTES (test code = 1067) 2.84 K/UL ABSOLUTE MONOCYTES (test code = 1068) 0.63 K/UL ABSOLUTE EOSINOPHILS (test code = 1040) 0.14 K/UL ABSOLUTE BASOPHILS (test code = 1069) 0.04 K/UL ABS IMMATURE GRANULOCYTES (test code = 1020) 0.02 K/UL ABS NUCLEATED RBCS (test code = 76403) 0.00 K/UL CBC W/AUTO [id number] 00:00:00 Test Item Value Reference Range Interpretation Comments WBC (test code = 1001) 7.6 K/UL RBC (test code = 1002) 4.54 M/UL HEMOGLOBIN (test code = 1003) 12.3 G/DL HEMATOCRIT (test code = 1004) 37.0 % MCV (test code = 1005) 81.5 fL MCH (test code = 1006) 27.1 PG MCHC (test code = 1007) 33.2 G/DL RDW (test code = 1038) 12.4 % NEUTROPHILS (test code = 1008) 51.4 % LYMPHOCYTES (test code = 1010) 37.6 % MONOCYTES (test code = 1011) 8.3 % EOSINOPHILS (test code = 1012) 1.9 % BASOPHILS (test code = 1013) 0.5 % IMMATURE GRANULOCYTES (test 0.3 % code = 1036) NUCLEATED RBCS (test code = 0.0 /100WBC'S 1065) PLATELET COUNT (test code = 412 K/UL 1015) ABSOLUTE NEUTROPHILS (test code 3.89 K/UL = 1066) ABSOLUTE LYMPHOCYTES (test code 2.84 K/UL = 1067) ABSOLUTE MONOCYTES (test code = 0.63 K/UL 1068) ABSOLUTE EOSINOPHILS (test code 0.14 K/UL = 1040) ABSOLUTE BASOPHILS (test code = 0.04 K/UL 1069) ABS IMMATURE GRANULOCYTES (test 0.02 K/UL code = 1020) ABS NUCLEATED RBCS (test code = 0.00 K/UL 69994) [id number] 00:00:00 Test Item Value Reference Range Interpretation Comments TSH, THIRD GENERATION (test code 2.520 UIU/ML = 2821) [id number] 00:00:00 Test Item Value Reference Range Interpretation Comments TSH, THIRD GENERATION (test code 2.520 UIU/ML = 2821) CBC W/AUTO [id number] 00:00:00 Test Item Value Reference Range Interpretation Comments WBC (test code = 1001) 6.5 K/UL RBC (test code = 1002) 4.33 M/UL HEMOGLOBIN (test code = 1003) 11.7 G/DL HEMATOCRIT (test code = 1004) 36.2 % MCV (test code = 1005) 83.6 fL MCH (test code = 1006) 27.0 PG MCHC (test code = 1007) 32.3 G/DL RDW (test code = 1038) 12.4 % NEUTROPHILS (test code = 1008) 46.0 % LYMPHOCYTES (test code = 1010) 43.5 % MONOCYTES (test code = 1011) 7.8 % EOSINOPHILS (test code = 1012) 2.0 % BASOPHILS (test code = 1013) 0.5 % IMMATURE GRANULOCYTES (test 0.2 % code = 1036) NUCLEATED RBCS (test code = 0.0 /100WBC'S 1065) PLATELET COUNT (test code = 384 K/UL 1015) ABSOLUTE NEUTROPHILS (test code 2.99 K/UL = 1066) ABSOLUTE LYMPHOCYTES (test code 2.83 K/UL = 1067) ABSOLUTE MONOCYTES (test code = 0.51 K/UL 1068) ABSOLUTE EOSINOPHILS (test code 0.13 K/UL = 1040) ABSOLUTE BASOPHILS (test code = 0.03 K/UL 1069) ABS IMMATURE GRANULOCYTES (test 0.01 K/UL code = 1020) ABS NUCLEATED RBCS (test code = 0.00 K/UL 97469) CBC W/AUTO [id number] 00:00:00 Test Item Value Reference Range Interpretation Comments WBC (test code = 1001) 6.5 K/UL RBC (test code = 1002) 4.33 M/UL HEMOGLOBIN (test code = 1003) 11.7 G/DL HEMATOCRIT (test code = 1004) 36.2 % MCV (test code = 1005) 83.6 fL MCH (test code = 1006) 27.0 PG MCHC (test code = 1007) 32.3 G/DL RDW (test code = 1038) 12.4 % NEUTROPHILS (test code = 1008) 46.0 % LYMPHOCYTES (test code = 1010) 43.5 % MONOCYTES (test code = 1011) 7.8 % EOSINOPHILS (test code = 1012) 2.0 % BASOPHILS (test code = 1013) 0.5 % IMMATURE GRANULOCYTES (test 0.2 % code = 1036) NUCLEATED RBCS (test code = 0.0 /100WBC'S 1065) PLATELET COUNT (test code = 384 K/UL 1015) ABSOLUTE NEUTROPHILS (test code 2.99 K/UL = 1066) ABSOLUTE LYMPHOCYTES (test code 2.83 K/UL = 1067) ABSOLUTE MONOCYTES (test code = 0.51 K/UL 1068) ABSOLUTE EOSINOPHILS (test code 0.13 K/UL = 1040) ABSOLUTE BASOPHILS (test code = 0.03 K/UL 1069) ABS IMMATURE GRANULOCYTES (test 0.01 K/UL code = 1020) ABS NUCLEATED RBCS (test code = 0.00 K/UL 87049) HEMOGLOBIN [id number] 00:00:00 Test Item Value Reference Range Interpretation Comments HEMOGLOBIN A1c (test code = 31223) 5.4 % HEMOGLOBIN [id number] 00:00:00 Test Item Value Reference Range Interpretation Comments HEMOGLOBIN A1c (test code = 15873) 5.4 % LIPID [id number] 00:00:00 Test Item Value Reference Range Interpretation Comments CHOLESTEROL (test code = 2210) 155 MG/DL TRIGLYCERIDES (test code = 2232) 63 MG/DL HDL CHOLESTEROL (test code = 2220) 50 MG/DL CALC LDL CHOL (test code = 2237) 90 MG/DL RISK RATIO LDL/HDL (test code = 1.80 RATIO 2238) COMPREHENSIVE METABOLIC [id number] 00:00:00 Test Item Value Reference Range Interpretation Comments GLUCOSE (test code = 2217) 92 MG/DL BUN (test code = 2208) 14 MG/DL CREATININE (test code = 2214) 0.49 MG/DL eGFR AMER. (test code 147 ML/MIN/1.73 = 77104) eGFR NON- AMER. (test 127 ML/MIN/1.73 code = 25233) CALC BUN/CREAT (test code = 29 RATIO 2235) SODIUM (test code = 2231) 143 MEQ/L POTASSIUM (test code = 2228) 4.5 MEQ/L CHLORIDE (test code = 2215) 106 MEQ/L CARBON DIOXIDE (test code = 29 MEQ/L 2206) CALCIUM (test code = 2209) 9.1 MG/DL PROTEIN, TOTAL (test code = 6.6 G/DL 2228) ALBUMIN (test code = 2201) 3.8 G/DL CALC GLOBULIN (test code = 2.8 G/DL 2239) CALC A/G RATIO (test code = 1.4 RATIO 2234) BILIRUBIN, TOTAL (test code = <0.2 MG/DL 2206) ALKALINE PHOSPHATASE (test 75 U/L code = 2204) AST (test code = 2218) 17 U/L ALT (test code = 2219) 13 U/L [id number] 00:00:00 Test Item Value Reference Range Interpretation Comments TSH, THIRD GENERATION (test code 2.220 UIU/ML = 2821) [id number] 00:00:00 Test Item Value Reference Range Interpretation Comments TSH, THIRD GENERATION (test code 2.220 UIU/ML = 2821) VITAMIN D, 25 [id number] 00:00:00 Test Item Value Reference Range Interpretation Comments VITAMIN D, 25 OH (test code = 4958) 34 NG/ML FERRITIN [ADDED]2020-11-03 00:00:00 Test Item Value Reference Range Interpretation Comments FERRITIN (test code = 2075) 26 NG/ML [id number] 00:00:00 Test Item Value Reference Range Interpretation Comments TSH, THIRD GENERATION (test code 1.450 UIU/ML = 2821) [id number] 00:00:00 Test Item Value Reference Range Interpretation Comments TSH, THIRD GENERATION (test code 1.450 UIU/ML = 2821) CBC W/AUTO [id number] 00:00:00 Test Item Value Reference Range Interpretation Comments WBC (test code = 1001) 7.1 K/UL RBC (test code = 1002) 4.57 M/UL HEMOGLOBIN (test code = 1003) 12.4 G/DL HEMATOCRIT (test code = 1004) 37.6 % MCV (test code = 1005) 82.3 fL MCH (test code = 1006) 27.1 PG MCHC (test code = 1007) 33.0 G/DL RDW (test code = 1038) 12.5 % NEUTROPHILS (test code = 1008) 55.6 % LYMPHOCYTES (test code = 1010) 35.6 % MONOCYTES (test code = 1011) 7.0 % EOSINOPHILS (test code = 1012) 1.4 % BASOPHILS (test code = 1013) 0.4 % PLATELET COUNT (test code = 1015) 399 K/UL CBC W/AUTO [id number] 00:00:00 Test Item Value Reference Range Interpretation Comments WBC (test code = 1001) 7.1 K/UL RBC (test code = 1002) 4.57 M/UL HEMOGLOBIN (test code = 1003) 12.4 G/DL HEMATOCRIT (test code = 1004) 37.6 % MCV (test code = 1005) 82.3 fL MCH (test code = 1006) 27.1 PG MCHC (test code = 1007) 33.0 G/DL RDW (test code = 1038) 12.5 % NEUTROPHILS (test code = 1008) 55.6 % LYMPHOCYTES (test code = 1010) 35.6 % MONOCYTES (test code = 1011) 7.0 % EOSINOPHILS (test code = 1012) 1.4 % BASOPHILS (test code = 1013) 0.4 % PLATELET COUNT (test code = 1015) 399 K/UL VITAMIN D, 25 [id number] 00:00:00 Test Item Value Reference Range Interpretation Comments VITAMIN D, 25 OH (test code = 4958) 21 NG/ML IGG SUBCLASS-4 [id number] 18:26:00 Test Item Value Reference Range Interpretation Comments Igg 4 (test code = 20.9 mg/dL 20190802) [place] (test code = Performing Lab [facility] [place]) Diagnostics [facility] [address] [place] [address] Luisito Pitt MD, PhD, ANTONIO [facility] [id number] 11:38:00 Test Item Value Reference Range Interpretation Comments Case Report (test code Surgical Pathology = 104) Report Case: [id number] Authorizing Provider: Mary Alice Peralta MD Collected: 02/23/2020 03:44 PM Ordering Location: [facility] PERIOPERATIVE Received: 02/24/2020 09:06 AM SERVICES Pathologist: Jo Sams MD Specimen: Gallbladder DIAGNOSIS (test code = [id number] 3220) uZzEwMzNcZnRuYmpcdWMxIH quxqGxLGqwe7OzV3AjNuObF FxhbnNpXGRlZmxhbmcxMDMz TGX7coTvMKIlCUsyUFIsJMb uGs5wdSAboCvnYiJmGARmc8 oxqcVLdvjffUk4k2ewLEKbH hQ6mCQxPTndY0mfywZxkATy HIGuPSt7mS21QKZpoH9kmMB sIDtccmVkMFxncmVlbjBcYm b5JCWpP1vnYGAwPSRmR1QsD M9zFQBdJka4YLO9LKC9rSht l6O6xZYamZFnqYurHsTgCkY zNRYYq4MeZCr8lGcqT9YjJV ZhVnR7hCSaNIPkZGpkARUtN ZWjywB5jP93GMffgjF0hIOp i0Svh94ug276cK0utAFfYAJ 7JISuISPxsIYbSRAlZFD3AG UjkAGbU4q2EtFpfCOzJ7T4S hBlwWIrU1C3TkUspKPsB3N6 SnStiYMgDYDlvXXoSq0nhRI iyCSury2ces75SSB1v8LdnV oxGIA2LFL8AsNlPm7hhHLaS LXzUX7vCxIxaSYpAHKvsa89 jCpiNBecxfVjqN3aFgEeXZA usQDvRXEkMS6vnLAiDULxgE 5ucmxjXHBnYnJkcmhlYWRcc DzrenYdFy5xvFgiVLP5RKyh Z6bxeK0wFbY0BCnxH0iunI7 wBCm8LXkezRF4JWPapV7fKY 4hlwuva7hwSyDvEQ9ojknmc 1ihImMzMB2npdw9x6bjUbAx CA7hdqgit3zlVeYpLGstDVG bkyciARHnn0QjiltnKTHac4 AnM6RhvJmgN86nwOmqK56iV ATxsFyqnA3buTunkX1vVvQc ZnMyMFxxbFxwbGFpblxmMFx mczIwXHBsYWluXGYwXGZzMj VdsNHgRIPbfaGvdSmfuD9tH jBcZnMyMFxwbGFpblxmMVxm czIwIEEuIEdBTExCTEFEREV CFNCSFI7SYUFBG7JFM6QMPC f2CSTvtqlojRvziBLeeagrV FxmczIwXHBsYWluXGYxXGZz FfFmCQVbJFSlOVWHDg2PFWN xW8vRWVTNSVQKYYUKUp9txB dsoU8vEzWbIsCuQUhsZHK3y 1xydGYxXHNzdGUxODAwMFxh bnNpXGRlZmxhbmcxMDMzXGZ 0bmJqXHVjMVxkZWZmMHtcZm 7ryGPpxLfdGzGyUGXwn1tqo cIKjcrsqLh0b1gpKROvSsN3 vIQwBUbvD0ypooZdkGZdWFU iWJw6zU11THNjeF4lhMVcCK hwojAyFdM7XKzuTOMpOoC3N BQyaHRoORQuC2wdLXDhOVam XBEdVKinxFFrTER2nYtqf6H 5bGVzaGVldHtcZjBcZnMyMi WDl9UwWLn1rNmrJ7GgAJNpR uY0zDCoOHNgWVekKTJhNDPb mjD8iW53JEpytoU6bWAyd1K uc53vt349lM0usDZdBVA1JO MbGDExuHAwDGWvRAR5SSTxr VXyV7ogIQTyGG5zmldoVBlg TGbwXKModYY1OFIqcXRjW3M nMJSfLNntXDNsvge4JeNlRb 9eqWVbmBliPDens5mni9kjb MStZde6GPCtUgYqLluvHJoe w0Hja7mfJUSymx4lEFQ8gEK hiBevg3W6qXChKHUyfVOwBF CnLB1waXLwWCBnyL0rkyovN HBnYnJkcmhlYWRccGdicmRy Ml1dnBdzGZA7MCbuC8uqvO7 xXhO9WWapB9fwcZ5kNHl8CK pyAJWmoKT1evB8CUCahDDjC 4QkzX8cKGXmEC0vlun5q6yq VRU6TTwwOKGfSeO3tpA2TYE rxXUmSZJvzSbvBRshu475ZG H8DmZxIQHnz8PfC8QjdMquV 29hmTrkN25eDGRquRnlaT3w oFhueX4tNmRsSrSzYTulvXe zZI3yTJAiL8emjYLsXSPcDP TcQ8fcMiZcsO5gjCkfHVkhh vUeUOArRym1MATseHNaQAQr Sho3QBRuHPTdI81gcruxEJE 1iH6hp0lny9EdZOygBNB8SM Aim72gMOvwlwE9AOriYv26W XonYVU0IBmwKPE9mD== CPT Code(s) (test code d5filSMwCZWubPLvRzJcSSX = 3357) tDVDpr5rtGBCumWWfRdFkXq NcZnRuYmpcdWMxXGRlZmYwe 4qtz521lCLtp5rgRWNjDdE0 vVMhFIRvxHIxD887h3zcm3t xqrMpgMP4QVZhTVR8VNypor DmtbL8SXuyqGJwGzP5MLqnu sHnWPrpfvYthtIoQpv2EVEf X905OCF3vZjwe8kuESJ8EYZ tXQYrNgDfUb6jpPFqY998PS AnYNHDWQBliQc7LRLjpcPdr iCtlFRPd063Z998g0kfNXCz coIsjNuNguhbn5dkJ159EXQ hcGVydzEyMjQwXHBhcGVyaD U3XHIqGM0wsevnPgBzOG8fb ztrHyCeMJ9fiug9AmJjBV9h cmdiNzIwXGhlYWRlcnkwXGZ dy7JdwvdjFW5sU9Tqz9K6cO 9maXRcZGVmdGFiNzIwXGZvc l7pyRMdZAxxc6PhOEG4miC5 fVKnlLUxRBOuQX68Jhxoc5M nEecqASQ1ASAxleNou7Cli1 bbQtAdgcTeO1dqN6EfAOXhY SJnCXDcKhIbesGgn6Gyd2In uWBknKs3k4juIFFnFLPiuXw gz1heEEP6REUaO8E4qUQpx3 myTZntISThtNV6wxmgVJmgQ UZvrwE7zqmrCHvoEEYvcFC0 vbebVYtxLQOiDsQ7owbyVJg oWTVwTKS9BUddc949DSF9GF xzYmtwYWdlXHBnbmNvbnRcc GduZGVjXHBsYWluXHBsYWlu XGYwXGZzMjRccWxccGxhaW5 nFdPwYeLaKWojIB0vCSQfG1 mpxWZiWWCiQJPrY4elDrOxw L5cnFphXYxvzaVhHSy4AkG5 XHBhcn0= CLINICAL HISTORY (test v2ujrZZvFKKpbABhZzSoMQE code = 3356) tUXMbe6lqFWDjjWKdCwYdLx NcZnRuYmpcdWMxXGRlZmYwe 6hhl942xRMtk6gmWXWaDnP8 nDTtOVTqyLLkP997e3vdk8a nqxOdcGL1FJGiVPH1ZIrfph AkitV2KJgebFMfHoW7YBqgz zJxNAyhnsSrffTfNbq5VLZq A212WQJ3wWcuo5pkDNZ8KHS xUZRmLwOrLe8mqPSrP000NN EiQPMMTWGtuUe8APMjdcLso dUqfZPMg992B790u2ouVXEd ruFipRfIpagrb3osA365EMC hcGVydzEyMjQwXHBhcGVyaD R3LMHoNP8bcqadSbNyJR4ib mplDoMcWT8tztp8XaRjNV1s cmdiNzIwXGhlYWRlcnkwXGZ zb9YeeiemLY3jW7Fbe1N2yP 9maXRcZGVmdGFiNzIwXGZvc c2gePFqTVaph6NxHZO5tiK4 kPPnjIVdOOLyVC32Leoxo2H dLosfXWQ2NEMizjZnh7Ini1 dxRsOuhwVlU6pcQ2XnTNPbJ PXqSSMcXfWwqiArk9Nhe2Ni kCAntAa9z3suWAWcCEXazLc fn0gbNDX4JDNcW4F2tRPia0 ccVPnlVWOueKN4skpiQOrqW IQwdtW3pigyJZnpKMLgnBM5 rzrlRZwvQSMvSfF5vdleRGc dDPXfAGZ5CUxor663NXH1IJ xzYmtwYWdlXHBnbmNvbnRcc GduZGVjXHBsYWluXHBsYWlu XGYwXGZzMjRccWxccGxhaW5 mEiVtSoHaZOwkPN9tHPYiZ9 trxUEwATNvPHCvJ2ilHfZyi B5sbPvxTLmkvnUcDYfysXkn lL1mEPKzXR7dwdRyrGe3jKF gXHBhcn0= SPECIMEN SOURCE (test o5huhARbOPQzxZHhJbQrAVR code = 3377) hVGGbc5obLSJyeGTdJrAiGz NcZnRuYmpcdWMxXGRlZmYwe 9fdg528zYThe0bzQNJkXsW1 iVDeSTJbdIOtQ511g2ime3a cseRwvMO8BXRsRRM7ZPiqat HrnqQ4OYrfuTUgRhS6BXeuz rRgXZsunuRkgtBhEkw7MXMe V174BWX0oZrcr2ruBIY4RSP aXHHnDaQhPy6tfITbQ156GI EwPGLMQQMiaRo6BCMesvQjo gXldCHXr845E794t1ncIEAi swZqcHnRwfuga3rkG928XLZ hcGVydzEyMjQwXHBhcGVyaD R9JFNsYC4xvlrhMzArSC9zi denFbDuLY9jycd9YoSiXQ0q cmdiNzIwXGhlYWRlcnkwXGZ va9McmiljVS8dT8Iiq2A3bR 9maXRcZGVmdGFiNzIwXGZvc n7prRIsDZbpt2FnCGE5ebL9 aSBikDGpRZMmTA38Ufuvx2M lWdzdDIH3ZAJwlzLse8Rcr5 zdEpArkvRqE5kiV8VoARUeB PDvIEQtWdFidvWyi4Cyp3Om nWGwkZz6v1srKZNcJZEixVb zt7maAAE2LJAaR8A6vWMfr8 foYFtrIXHafWS6nrfmSRmxP QYzswO5uqsySQqhNJDfjXQ2 keuaBLmwDGZuNvZ5kmdmAKi yUJVkCHC3SYcen610IDI3JD xzYmtwYWdlXHBnbmNvbnRcc GduZGVjXHBsYWluXHBsYWlu XGYwXGZzMjRccWxccGxhaW5 dZvLmSzIeQMbcWL8lFCOhV7 gwuZJbPFQeOXQoP4sdAsArj J6adAbzKPqdksKpMZgrcNhx bGFkZGVyIFxwYXJ9 GROSS DESCRIPTION a9uhkERdQPRolHCyPtWqUHW (test code = 3366) uEBQiw3uzRTPfkXKdNpKkFb NcZnRuYmpcdWMxXGRlZmYwe 2bpq727zPBny0xeAEWxWjB1 wSInCPSclZKnG529z9kpy7d ninPrbCE0MIErUFF2NEdwoo NefrF6FAoktIIsPbY4OUlma wGyAWafjmTojiTjPmn0BPKr D207RWW2qSrby6omUBP0HGL fGLOcYvWcYo6xiAKnM411SY IzFYTIEQMjkUr5GGTvcmZnf zXyhYTNo967X315f4azWSVz tbZhmQvMzusvc8blB440WJD hcGVydzEyMjQwXHBhcGVyaD F2PTLuJM4cprhdBxDxUZ6hc izrZpQwSS9xhie4UcJmNG5d cmdiNzIwXGhlYWRlcnkwXGZ kv2YkzmukXX3rV8Uap6A0gU 9maXRcZGVmdGFiNzIwXGZvc v6rzIXtJUpxw6YjLFW1ftT1 iVOoqAVnEUYsME63Hmxoy7K uOrjvFCR8MABndyDoy7Wzi0 scKdVeeaHtQ8kiG7MvJDWzN WFcNXLpIeGbngIub6Hde3Eg mQXjpEz7p9vgNSWfSINleEp xj7yoHII2LEOwH9I3rGAqx8 sgYZyoAHUlyPC1tohgBSavE INbgoB7tmopFMxsTOEkxMH1 awllDAanAWQnXmE8hiesPAu oECHhRNF0AVwkq884OQH2FT xzYmtwYWdlXHBnbmNvbnRcc GduZGVjXHBsYWluXHBsYWlu XGYwXGZzMjRccWxccGxhaW5 oSoTtJmJmMQawGS6kAZRaU9 fhgIQmTPJgDEPgD3ddQrVqw J4rgXujIXbfvuHeYTUnT5Tf azHeZFodFBUpnn6ycXcpIWu bEgQwPGSoe9e0zMT1wRNpmE W8gYHuaDdjDV0aqEGyOPOwW 8Lpr3ptanAobA9dIXKyLW3c ICJnYWxsYmxhZGRlciIgaXM aXFV7IjUjtIYtSiBftHAwBc FbE77wcH88WWC7BUoohDwza GFkZGVyIHdpdGggYSAwLjIg J31vhC9loGZlK8RrPNuzEE9 sUPZcTOslFJFuRL5juPVeKO Z9pAPzsPNqWXU2v9GwGqHqo HC8IeWUaJRpo1Tbt5GgYMvm WVT6ffDpPJ6dmY6bPYIthY7 ztNmcSL3aTXz7wISxQU8lGd 4gVGhlIHNwZWNpbWVuIGlzI X9tQP1mYPF4omNaAEHbQOsr HAUbtv30zR6skWTzaLS4HJ8 CGP6dUMosIQXxNCMliSOgPZ IzjGP9xSulNNNdUT5wmQMgV GVudGlmaWVkLiBUaGUgbXVj y7YyKGgaADvbGRPwPYP3qaO sGZW0gXP7GCGcFE8xKNOec9 KrTEjsYOZsw8EqbuDbLDGxt 1IgmRJxDxO7TUmgp7enq8Yp vVOgsQ6dFuFPlLHzi4LrrGU dZZIveZQwdbObBuVxL76fbF dxZ5dfEEGvbSDlf0ManWU8a STkIRSrW3Mgg18nSQLaVLMt xFCuaMR3NUFnjG4hCVFvSXU lRMushWwtbRloDJiba3VcKY P6j2SlRhXraEP2SH9pswvks xQeaoTSNK9qCAKuTBzxFZAl cn0= MICROSCOPIC z4pkcXCbHSGmmOViHrBxFAB DESCRIPTION (test code wYHXdq8uwPAPlaMPhVnOvOa = 3371) NcZnRuYmpcdWMxXGRlZmYwe 6uht621ePRtx4wqDXKnQfP1 iWYuUXXbhWIeM397y3kgv2r ucqTelJC8NOAvLFW5EUkbfu ZhcmX8WEfonLJkFfP4JApyd wFmDNqtioAndwRoZgj0GHUg C099XOD8yAlbi5bqENU7SAR jMZAsDoZoGk3npRSvK308ZX BmMRLSOINgkJb2KNGnxwHhq mUlnCJVi017F173k8fxNZPi wpUgdOxFqsppi1thQ120HZC hcGVydzEyMjQwXHBhcGVyaD O6GFWjME6phzozUsSbZL6xy vkxXwXwJY9hzzr0JbNlZA9d cmdiNzIwXGhlYWRlcnkwXGZ pu9QvlojzQP1eO0Jom5C3cT 9maXRcZGVmdGFiNzIwXGZvc u5cnQBdEPgfr7QtNKL4keF6 rFDcgDInVNHeHP29Zbqfv3K xYxdsOIH9YDOqttIwu3Nzl2 zmNjWodnSaQ5msY4VfEPLdD CJwGBNwNuZwcbHeo8Zip6Ba dDYygCw8w0maZGDlPETxcLm jm1ggPEW7NHAsK4R4eZHkw5 cxOTifVOWdiJQ9fcddXXvpH WRazfV2ogyeWRknTQGzuSR6 xjnhBPpxBFSgJiV2ypdtXYd xVBMdJKI5VMcmc107ZDZ5FQ xzYmtwYWdlXHBnbmNvbnRcc GduZGVjXHBsYWluXHBsYWlu XGYwXGZzMjRccWxccGxhaW5 qBfXrCyUqFVtqYK0iOMOcK2 yufNJcYLLdYDHaT1okPhRhs X8zwAuwZGjawiKzEBJeghZd zo4eOR9jhLZziP== Gross assessment was [facility], code = 2777) Department of Pathology, [address] [place] [address], Technical component [facility] was performed at ([facility], code = 2778) Department of Pathology, [address] [place] [address], Professional component [facility] was performed at ([facility], code = 2779) Department of Pathology, [address] [place] [address], [facility] CampusTISSUE [id number] 11:38:00Surgical Pathology Report Case: [id number] Authorizing Provider: Mary Alice Peralta MD Collected: 02/23/2020 03:44 PM Ordering Location: [facility] PERIOPERATIVE Received: 02/24/2020 09:06 AM SERVICES Pathologist: Jo Sams MD Specimen: Gallbladder A. GALLBLADDER, CHOLECYSTECTOMY: - CHRONIC CHOLECYSTITIS. Signing Pathologist Direct Phone Line: [phone] signed by Jo Sams MD on 02/26/2020 at 11:38 [id number] pancreatitis Gallbladder Received in formalin labeled with [...] stippling. The wall measures 0.2 cm thick. Machine Grainer sections are submitted in A1-A2, with the inked cystic duct margin in A1. PA/ew Performed.[facility], Department of Pathology, [address] [place] [address], [facility], [facility] of [facility]ology, [address] [place] [address], [facility], Department of Pathology, [address] [place] [address], Jkbjg metabolic panel 2020-02-24 07:35:00 Test Item Value Reference Range Interpretation Comments Sodium (test code = 139 meq/L 389-484 8536-2) Potassium (test code = 4.5 meq/L 3.5-5.1 2823-3) Chloride (test code = 105 meq/L 98-107 2075-0) CO2 (test code = 26 meq/L 22-29 2028-9) BUN (test code = 2 mg/dL 7-21 L 3094-0) Creatinine (test code 0.55 mg/dL 0.57-1.25 L = 2160-0) Glucose (test code = 114 mg/dL 70-105 H 2345-7) Calcium (test code = 8.2 mg/dL 8.4-10.2 L 54800-8) EGFR (test code = 127 mL/min/1.73 [place] [address]-1) NOT ACCURATE CREATININE CLEARANCE IN PREDICTING GLOMERULAR FILTRATION RATE . ESTIMATED GFR I S NOT APPLICABLE FOR DIALYSIS PATIENTS. [place] (test code = [place]) Inspector Of Weights And Measures ID - TEAGAN C Lab Interpretation Abnormal (test code = 67476-5) [facility] CampusHepatic function [id number] 07:35:00 Test Item Value Reference Range Interpretation Comments Protein, Total (test 6.0 See_Comment [Autom ated code = 2885-2) message] The system which generated this result transmit tariq reference range : 6.0 - 8.3 gm/dL . The reference range was not u sed to interpret th is result as normal/abnormal . Albumin (test code = 3.0 g/dL 3.5-5 L 62784-5) Total Bilirubin (test 0.3 mg/dL 0.2-1.2 code = 1975-2) Bilirubin, Direct 0.2 mg/dL 0.1-0.5 (test code = 1968-7) Alkaline Phosphatase 141 U/L 40-150 (test code = 6768-6) AST (test code = 59 U/L 5-34 H 1920-8) ALT (test code = 81 U/L 6-55 H 1742-6) [place] (test code = [place]) Inspector Of Weights And Measures ID - TEAGAN C Lab Interpretation Abnormal (test code = 89333-3) [facility] 07:[facility]00 Test Item Value Reference Range Interpretation Comments Magnesium (test code = 1.4 mg/dL 1.6-2.6 L 70714-3) [place] (test code = [place]) Inspector Of Weights And Measures ID - TEAGAN C Lab Interpretation (test Abnormal code = 15153-7) [facility]2020-10-06 07:35:00 Test Item Value Reference Range Interpretation Comments MAGNESIUM (BEAKER) (test code = 1.4 mg/dL 1.6-2.6 L 627) Inspector Of Weights And Measures ID - TEAGAN CBASIC METABOLIC [id number] 07:35:00 Test Item Value Reference Range Interpretation [...] S NOT APPLICABLE FOR DIALYSIS PATIEN TS. Inspector Of Weights And Measures ID - TEAGAN CHEPATIC FUNCTION [id number] 07:35:00 Test Item Value Reference Range Interpretation [...] code = 81 U/L 6-55 H 347) Inspector Of Weights And Measures ID - TEAGAN CCBC (Hemogram only)2020-02-24 05:46:00 Test Item Value Reference Range Interpretation Comments WBC (test code = 6690-2) 8.9 See_Comment [A utomated message] The system [employer] generated this result transmitted ref erence range: 3.5 - 10 .5 K/L. The refe rence range was not u sed to interpret this result as normal/abnor mal. RBC (test code = 789-8) 4.19 See_Comment [Au tomated message] The system [employer] generated this result transmitted ref erence range: 3.93 - 5 .22 M/L. The refe rence range was not u sed to interpret this result as normal/abnor mal. MCHC (test code = 786-4) 31.4 See_Comment L [A utomated message] The system [employer] generated this result transmitted ref erence range: [...] See_Comment [Aut omated message] 777-3) The system [employer] generated this result transmitted ref erence range: 150 - 45 0 K/CU MM. The referen ce range was not u sed to interpret this result as normal/abnor mal. MPV (test code = 9.9 fL 9.4-12.3 45319-5) nRBC (test code = 413) 0 See_Comment [Aut omated message] The system [employer] generated this result transmitted ref erence range: 0 - 0 /1 00 WBC. The refere nce range was not u sed to interpret this result as normal/abnor mal. Lab Interpretation (test Abnormal code = 17559-4) [facility] (HEMOGRAM ONLY)2020-02-24 05:46:00 Test Item Value Reference [...] (BEAKER) (test code = 413) BASIC METABOLIC [id number] 07:17:00 Test Item Value Reference Range Interpretation [...] S NOT APPLICABLE FOR DIALYSIS PATIEN TS. Inspector Of Weights And Measures ID - [id number] 07:11:00 Test Item Value Reference Range Interpretation Comments MAGNESIUM (BEAKER) (test code = 1.4 mg/dL 1.6-2.6 L 627) Inspector Of Weights And Measures ID - EDASIHEPATIC FUNCTION [id number] 07:11:00 Test Item Value Reference Range Interpretation [...] code = 76 U/L 6-55 H 347) Inspector Of Weights And Measures ID - PRINCE, [id number] 07:09:00 Test Item Value Reference Range Interpretation Comments ABO Grouping (test code = 2588) O Rh Factor (test code = 2589) POS [facility] CampusType and screen, [id number] 06:56:00 Test Item Value Reference Range Interpretation Comments ABO/RH AUTOMATED (BEAKER) (test O POSITIVE code = 2260) Ab Scrn (test code = 890-4) NEGATIVE [facility] CampusCBC (HEMOGRAM ONLY)2020-02-23 06:22:00 Test Item Value Reference [...] 0-0 (BEAKER) (test code = 413) Screen, [id number] 17:03:00 Test Item Value Reference Range Interpretation Comments Preg Test, Ur (test code = 2112-1) Negative [facility] CampusPREGNANCY SCREEN, [id number] 17:03:00 Test Item Value Reference Range Interpretation Comments TEST URINE (BEAKER) (test Negative code = 583) HEPATIC FUNCTION [id number] 05:02:00 Test Item Value Reference Range Interpretation [...] code = 83 U/L 6-55 H 347) Inspector Of Weights And Measures ID - [id number] 13:08:00 Test Item Value Reference Range Interpretation Comments Triglycerides (test 64 mg/dL code = 2571-8) [place] (test code = [place]) TRIGLYCERIDE REFERENCE RANGELow Risk <150Borderline Risk 150-199High Risk 200-499Very High Risk >=500Operator ID - DESHAUN [facility] [id number] 13:08:00 Test Item Value Reference Range Interpretation Comments TRIGLYCERIDES (ANTONINA) (test code = 64 mg/dL 540) TRIGLYCERIDE REFERENCE RANGELow Risk <150Borderline Risk 150-199High Risk 200-499Very High Risk >=500Operator ID - LILOGMR, ABDOMEN, [id number] 07:53:00Unlisted Reason for Exam - Click Yes and Enter Reason Below->NoFINAL REPORT MR, ABDOMEN, MRCP HISTORY: Biliary obstruction suspected COMPARISON: None. TECHNIQUE: MRI of the abdomen with exam tailored to evaluate the biliary tree and the pancreas. Multiplanar, multisequence images, including heavily T2-weighted MRCP sequences were obtained. FINDINGS: Bile ducts: [...] suggest choledocholithiasis.3.Findings compatible with the patient's pancreatitis, noloculated fluid collections. Signed: Mari Denny Verified Date/Time: 02/21/2020 07:53:35 Reading Location: [facility] C013Y CT Body Reading Room MR abdomen without IV contrast [id number] 07:53:00Interface, External Ris In - 02/21/2020 7:55 AM CDTFINAL REPORT MR, ABDOMEN, MRCP HISTORY: Biliary obstruction suspected COMPARISON: None. TECHNIQUE: MRI of the abdomen with exam tailored to evaluate the biliary tree and the pancreas. Multiplanar, multisequence images, including heavily T2-weighted MRCP sequences were obtained. FINDINGS: Bile ducts: [...] no loculated fluid collections. Signed: Mari Denny Verified Date/Time: 02/21/2020 07:53:35 Reading Location: [facility] C013Y CT Body Reading Room El ectronically signed by: MARI DENNY MD on 02/21/2020 07:53 [facility] 05:09:00 Test Item Value Reference Range Interpretation Comments MAGNESIUM (BEAKER) (test code = 1.6 mg/dL 1.6-2.6 627) Inspector Of Weights And Measures NISH CORLEY LBASIC METABOLIC [id number] 05:09:00 Test Item Value Reference Range Interpretation [...] S NOT APPLICABLE FOR DIALYSIS PATIEN TS. Inspector Of Weights And Measures NISH CORLEY LHEPATIC FUNCTION [id number] 05:09:00 Test Item Value Reference Range Interpretation [...] code = 102 U/L 6-55 H 347) Inspector Of Weights And Measures NISH CORLEY LCBC (HEMOGRAM ONLY)2020-02-21 04:37:00 Test Item [...] Not Detected, (test code = Negative, See 78552-8) external report for linked test SARS-COV-2 [facility] PERFORMING LAB (test code = 86027-1) [place] (test code = Negative result for [...] of the Act. Fact Sheet for Healthcare Providers:https://www.[employer]/sites/default/f alphonse/product/documents/F act_Sheet_HC_Providers_L ezj_ZKHK-ZhT-3.pdf Fact Sheet for Healthcare Patients:https://www.[employer]/sites/default/fi les/product/documents/Fa ct_Sheet_Patients_Lyra_S ARS-CoV-2.pdf Performing Laboratory:[facility] [facility] [address] [place], [place] [address] [place], [place] [address]ARS-COV2/RT-PCR ([facility])2020-02-20 16:48:00 Test Item Value Reference Range Interpretation Comments SARS-COV2/RT-PCR (test Negative Not Detected, Negative, code = 5119704) See external report for linked test SARS-COV-2 PERFORMING LAB [facility] (test code = 2954433) Negative result for this test determines that [...] individuals suspected of COVID-19 by their healthcare provider.This test [...] justifying the authorization of the emergency use ofin vitro diagnostic tests for detection and/or diagnosis of COVID-19 is terminated under Section 564(b)(2) of the Act or the EUA is revoked under Section 564(g) of the Act.Fact Sheet for Healthcare Prov iders:https://www.[employer]/sites/default/files/product/documents/Fact_Sheet_HC _Wjkzpoiyh_Ahrr_YUME-VzA-5.pdfFact Sheet for Healthcare Patients:https://www.[employer]/sites/default/files/product/docume nts/Eplc_Xwmfx_Dyupxekr_Fdtm_JHEK-QvB-5.pdfPerforming Laboratory:[facility], [place] [id number] 07:22:00 Test Item Value Reference Range Interpretation Comments MAGNESIUM (BEAKER) (test code = 1.9 mg/dL 1.6-2.6 627) Inspector Of Weights And Measures ID - MARGARITA FBASIC METABOLIC [id number] 07:22:00 Test Item Value Reference Range Interpretation [...] S NOT APPLICABLE FOR DIALYSIS PATIEN TS. Inspector Of Weights And Measures ID - MARGARITA FHEPATIC FUNCTION [id number] 07:22:00 Test Item Value Reference Range Interpretation [...] code = 162 U/L 6-55 H 347) Inspector Of Weights And Measures ID - MARGARITA FCBC with platelet count + automated [id number] 06:03:00 Test Item Value Reference Range Interpretation Comments WBC (test code = 6690-2) 8.4 See_Comment [A utomated message] The system [employer] generated this result transmitted ref erence range: 3.5 - 10 .5 K/L. The refe rence range was not u sed to interpret this result as normal/abnor mal. RBC (test code = 789-8) 4.70 See_Comment [Au tomated message] The system [employer] generated this result transmitted ref erence range: 3.93 - 5 .22 M/L. The refe rence range was not u sed to interpret this result as normal/abnor mal. MCHC (test code = 786-4) 31.3 See_Comment L [A utomated message] The system [employer] generated this result transmitted ref erence range: [...] See_Comment [Aut omated message] 777-3) The system [employer] generated this result transmitted ref erence range: 150 - 45 0 K/CU MM. The referen ce range was not u sed to interpret this result as normal/abnor mal. MPV (test code = 9.8 fL 9.4-12.3 80735-8) nRBC (test code = 413) 0 See_Comment [Aut omated message] The system [employer] generated this result transmitted ref erence range: [...] See_Comment [Aut omated message] 670) The system [employer] generated this result transmitted ref erence range: 1.56 - 6 .13 K/L. The refe rence range was not u sed to interpret this result as normal/abnor mal. # Lymphs (test code = 1.67 See_Comment [Auto mated message] 414) The system [employer] generated this result transmitted ref erence range: 1.18 - 3 .74 K/L. The refe rence range was not u sed to interpret this result as normal/abnor mal. # Monos (test code = 0.62 See_Comment H [Autom ated message] 415) The system [employer] generated this result transmitted ref erence range: 0.24 - 0 .36 K/L. The refe rence range was not u sed to interpret this result as normal/abnor mal. # Eos (test code = 416) 0.04 See_Comment [Au tomated message] The system [employer] generated this result transmitted ref erence range: 0.04 - 0 .36 K/L. The refe rence range was not u sed to interpret this result as normal/abnor mal. # Baso (test code = 417) 0.02 See_Comment [A utomated message] The system [employer] generated this result transmitted ref erence range: 0.01 - 0 .08 K/L. The refe rence range was not u sed to interpret this result as normal/abnor mal. Immature 0 % 0-1 Granulocytes-Relative (test code = 2801) Lab Interpretation (test Abnormal code = 87242-5) [facility] W/PLT COUNT & AUTO [id number] 06:03:00 Test Item Value Reference Range Interpretation [...] % 0-1 PERCENT (BEAKER) (test code = 2801) LIPID [id number] 00:00:00 Test Item Value Reference Range Interpretation Comments CHOLESTEROL (test code = 2210) 175 MG/DL TRIGLYCERIDES (test code = 2232) 116 MG/DL HDL CHOLESTEROL (test code = 2220) 50 MG/DL CALC LDL CHOL (test code = 2237) 102 MG/DL RISK RATIO LDL/HDL (test code = 2.04 RATIO 2238) COMPREHENSIVE METABOLIC [id number] 00:00:00 Test Item Value Reference Range Interpretation Comments GLUCOSE (test code = 2217) 87 MG/DL BUN (test code = 2208) 12 MG/DL CREATININE (test code = 2214) 0.63 MG/DL eGFR AMER. (test code 138 ML/MIN/1.73 = 44803) eGFR NON- AMER. (test 119 ML/MIN/1.73 code = 26090) CALC BUN/CREAT (test code = 19 RATIO 2235) SODIUM (test code = 2231) 143 MEQ/L POTASSIUM (test code = 2228) 3.8 MEQ/L CHLORIDE (test code = 2215) 102 MEQ/L CARBON DIOXIDE (test code = 29 MEQ/L 2205) CALCIUM (test code = 2209) 9.1 MG/DL PROTEIN, TOTAL (test code = 7.1 G/DL 2228) ALBUMIN (test code = 2201) 3.9 G/DL CALC GLOBULIN (test code = 3.2 G/DL 224) CALC A/G RATIO (test code = 1.2 RATIO 2233) BILIRUBIN, TOTAL (test code = <0.2 MG/DL 2206) ALKALINE PHOSPHATASE (test 87 U/L code = 220) AST (test code = 2218) 20 U/L ALT (test code = 2219) 18 U/L HEMOGLOBIN [id number] 00:00:00 Test Item Value Reference Range Interpretation Comments HEMOGLOBIN A1c (test code = 53313) 5.6 % HEMOGLOBIN [id number] 00:00:00 Test Item Value Reference Range Interpretation Comments HEMOGLOBIN A1c (test code = 03594) 5.6 % COMPREHENSIVE METABOLIC [id number] 00:00:00 Test Item Value Reference Range Interpretation Comments GLUCOSE (test code = 2217) 78 MG/DL BUN (test code = 2208) 12 MG/DL CREATININE (test code = 2214) 0.49 MG/DL eGFR AMER. (test code 150 ML/MIN/1.73 = 77484) eGFR NON- AMER. (test 130 ML/MIN/1.73 code = 51968) CALC BUN/CREAT (test code = 24 RATIO 2234) SODIUM (test code = 2231) 141 MEQ/L POTASSIUM (test code = 2228) 4.8 MEQ/L CHLORIDE (test code = 2215) 101 MEQ/L CARBON DIOXIDE (test code = 29 MEQ/L 2205) CALCIUM (test code = 2209) 9.3 MG/DL PROTEIN, TOTAL (test code = 6.7 G/DL 2228) ALBUMIN (test code = 2201) 3.9 G/DL CALC GLOBULIN (test code = 2.8 G/DL 2240) CALC A/G RATIO (test code = 1.4 RATIO 2233) BILIRUBIN, TOTAL (test code = <0.2 MG/DL 2207) ALKALINE PHOSPHATASE (test 88 U/L code = 2204) AST (test code = 2218) 16 U/L ALT (test code = 2219) 13 U/L [id number] 00:00:00 Test Item Value Reference Range Interpretation Comments TSH, THIRD GENERATION (test code 2.880 UIU/ML = 2821) [id number] 00:00:00 Test Item Value Reference Range Interpretation Comments TSH, THIRD GENERATION (test code 2.880 UIU/ML = 2821) PAP TEST, THINPREP, [id number] 00:00:00 Test Item Value Reference Range Interpretation Comments SOURCE: (test code = Cervical/Endocervical 8001) SLIDES: (test code = 1 8011) LMP: (test code = 09/18/2017 8021) SPECIMEN ADEQUACY: (NOTE) (test code = 19422) INTERPRETATION: (test NO EPITHELIAL code = 75679) ABNORMALITY SEE BELOW PLANNING DIVISION SUPERINTENDENT: MEGA Urrutia(ASCP) (test code = 8101) LOCATION: (test code (NOTE) = 53708) CPT: (test code = (NOTE) 8140) VAGINAL PATHOGENS DNA [id number] 00:00:00 Test Item Value Reference Range Interpretation Comments DANNA SPECIES (test code = ) NEGATIVE G. VAGINALIS (test code = ) NEGATIVE T. VAGINALIS (test code = 97851) NEGATIVE HPV HIGH RISK WITH GENOTYPE, [id number] 00:00:00 Test Item Value Reference Range Interpretation Comments HPV HIGH RISK INTERP (test code = NEGATIVE 66842) HPV 16 (test code = 98256) NEGATIVE HPV 18 (test code = 21525) NEGATIVE HPV, HR, OTHER GENOTYPES (test code NEGATIVE = 16694) GC AND CHLAMYDIA AMPLIFIED, [id number] 00:00:00 Test Item Value Reference Range Interpretation Comments GONORRHEA, TMA (test code = 87570) NEGATIVE CHLAMYDIA, TMA (test code = 75471) NEGATIVE CULTURE, THROAT [ADDED]2017-07-22 00:00:00 Test Item Value Reference Range Interpretation Comments CULTURE, THROAT (test SPECIMEN NUMBER: code = 65190) [id number] VAGINAL PATHOGENS DNA [id number] 00:00:00 Test Item Value Reference Range Interpretation Comments DANNA SPECIES (test code = ) NEGATIVE G. VAGINALIS (test code = ) NEGATIVE T. VAGINALIS (test code = ) NEGATIVE
[2022-02-08] MEDS ORDERED: BUPIVACAINE 0.5% PF 10 ML VIAL ONE (15:15)
--- NOTE | 2022-02-08 15:55 | EDPHYS ---
Physician Documentation [facility] Name: Feliciano Blair Age: 36 yrs Sex: Female : 1985 Arrival Date: 02/08/2022 Time: 14:32 Bed 12 Private MD: BERNICE Physician Franklin Rehman HPI: 02/08 15:50 This 36 yrs old Female presents to ER via Ambulatory with complaints of Finger jmm laceration. 15:50 The patient or guardian reports injury. Onset: The symptoms/episode began/occurred jmm acutely, just prior to arrival. Modifying factors: The symptoms are alleviated by nothing, the symptoms are aggravated by nothing. This is a 36-year-old female with a history of migraines and pancreatitis the presents emerged part with a laceration to the left third finger at the pad of the finger. Patient states she was using a slicer and accidentally took the tip of her finger off. Patient states she is up-to-date on tetanus immunization.. Historical: - Allergies: 14:40 No Known Allergies; iw - Home Meds: 14:40 None [Active]; iw - PMHx: 14:40 Migraine; Pancreatitis; iw - PSHx: 14:40 Cholecystectomy; gastric sleeve; iw - Immunization history:: Last tetanus immunization: < 5 years ago. ROS: 15:50 Constitutional: Negative for fever, chills, and weight loss, Cardiovascular: Negative jmm for chest pain, palpitations, and edema, Respiratory: Negative for shortness of breath, cough, wheezing, and pleuritic chest pain. 15:50 Skin: Positive for laceration(s). 15:50 All other systems are negative. Exam: 15:50 Constitutional: This is a well developed, well nourished patient who is awake, alert, jmm and in no acute distress. Head/Face: atraumatic. Eyes: EOMI, no conjunctival erythema appreciated ENT: Moist Mucus Membranes Neck: Trachea midline, Supple Chest/axilla: Normal chest wall appearance and motion. Cardiovascular: Regular rate and rhythm. No edema appreciated Respiratory: Normal respirations, no respiratory distress appreciated Abdomen/GI: Non distended Back: Normal ROM 15:50 Skin: Laceration noted to the left third distal phalanx at the pad,. 15:50 Neuro: Orientation: is normal, Mentation: is normal, Memory: is normal. 15:50 Psych: Behavior/mood is pleasant, cooperative. Vital Signs: 14:38 BP 129 / 78; Pulse 70; Resp 16; Temp 97.5; Pulse Ox 100% on R/A; iw Laceration: 15:51 Wound Repair of 3cm ( 1.2in ) subcutaneous laceration to palmar aspect of distal jmm phalanx of left middle finger. Distal neuro/vascular/tendon intact. Anesthesia: Digital block administered with 3 mls of 0.5% marcaine. Wound prep: Simple cleansing with betadine by wy. Skin closed with 7 5-0 Prolene using simple sutures and sterile technique. Dressed with non-adherent dressing. Patient tolerated well. MDM: 14:43 Patient medically screened. [facility] 15:53 Data reviewed: vital signs, nurses notes. Counseling: I had a detailed discussion with loida the patient and/or guardian regarding: the historical points, exam findings, and any diagnostic results supporting the discharge/admit diagnosis, the need for outpatient follow up, to return to the emergency department if symptoms worsen or persist or if there are any questions or concerns that arise at home. ED course: Patient given wound infection return precautions.. Administered Medications: 15:15 Drug: Marcaine (bupivacaine) (0.5 %) 10 ml Volume: 10 ml; Route: Infiltration; bm7 Disposition Summary: 02/08/22 15:55 Discharge Ordered Location: Home [facility] Condition: Stable [facility] Diagnosis - Finger laceration [facility] Followup: [facility] - With: Private Physician - When: 2 - 3 days - Reason: Recheck today's complaints, Continuance of care, Re-evaluation by your physician Discharge Instructions: - Discharge Summary Sheet [facility] - Laceration Care, Adult [facility] Forms: - Medication Reconciliation Form [facility] - Thank You Letter [facility] - Antibiotic Education [facility] - Prescription Opioid Use [facility] Signatures: Franklin Rehman MD MD cha Mickail, Joel, PA PA jmm Williams, Irene, RN RN iw McCarthy, Brittany, RN RN bm7
--- NOTE | 2022-02-08 15:55 | ER ---
Nurse's Notes [facility] Name: Feliciano Blair Age: 36 yrs Sex: Female : 1985 Arrival Date: 02/08/2022 Time: 14:32 Bed 12 Private MD: Diagnosis: Finger laceration Presentation: 02/08 14:38 Chief complaint: Patient states: sliced the tip of the fatty part of her middle finger iw off with a knife while cutting carrots, did not cut the fingernail. Coronavirus screen: At this time, the client does not indicate any symptoms associated with coronavirus-19. Ebola Screen: Patient negative for fever greater than or equal to 101.5 degrees Fahrenheit, and additional compatible Ebola Virus Disease symptoms Patient denies exposure to infectious person. Patient denies travel to an Ebola-affected area in the 21 days before illness onset. No symptoms or risks identified at this time. Initial Sepsis Screen: Does the patient meet any 2 criteria? No. Patient's initial sepsis screen is negative. Does the patient have a suspected source of infection? No. Patient's initial sepsis screen is negative. Risk Assessment: Do you want to hurt yourself or someone else? Patient reports no desire to harm self or others. Onset of symptoms was February 08, 2022. 14:38 Method Of Arrival: Ambulatory iw 14:38 Acuity: JOSE 4 iw Historical: - Allergies: 14:40 No Known Allergies; iw - Home Meds: 14:40 None [Active]; iw - PMHx: 14:40 Migraine; Pancreatitis; iw - PSHx: 14:40 Cholecystectomy; gastric sleeve; iw - Immunization history:: Last tetanus immunization: < 5 years ago. Screenin:39 Abuse screen: Denies threats or abuse. Denies injuries from another. Nutritional ss screening: No deficits noted. Tuberculosis screening: Fall Risk None identified. Assessment: 16:39 Reassessment: Patient appears in no apparent distress at this time. Patient and/or ss family updated on plan of care and expected duration. Pain level reassessed. Dressing placed to finger. Nonadherent with Coban. Vital Signs: 14:38 BP 129 / 78; Pulse 70; Resp 16; Temp 97.5; Pulse Ox 100% on R/A; iw ED Course: 14:32 Patient arrived in ED. mr 14:33 Yunior Schneider PA is PHCP. [facility] 14:33 Franklin Rehman MD is Attending Physician. [facility] 14:40 Triage completed. iw 14:40 Arm band placed on. iw 15:00 Razia Trejo, RN is Primary Nurse. bm7 16:39 Patient has correct armband on for positive identification. ss 16:39 No provider procedures requiring assistance completed. Patient did not have IV access ss during this emergency room visit. Administered Medications: 15:15 Drug: Marcaine (bupivacaine) (0.5 %) 10 ml Volume: 10 ml; Route: Infiltration; bm7 Outcome: 15:55 Discharge ordered by MD. [facility] 16:39 Discharged to home ambulatory. ss 16:39 Condition: good 16:39 Discharge instructions given to patient, Instructed on discharge instructions, follow up and referral plans. wound care, Demonstrated understanding of instructions, follow-up care, wound care. 16:41 Patient left the ED. ss Signatures: Yunior Schneider PA PA [facility] GreggBia Codi Barbosa, RICHARD RAMOS Mely Foster RN RN Razia Trejo, RICHARD RN [facility]
[2022-02-10 02:57] VITALS: BP 129/78; TEMP 97.5; O2SAT 100
== END 2022-02-08 16:41 | disposition home or self-care (01) ==
LOC: ER 14:11
PROC: 0JQK0ZZ Repair Left Hand Subcutaneous Tissue and Fascia, Open Approach (ICD-10-PCS; principal; 2022-02-08)
DX: S61.213A Laceration without foreign body of left middle finger without damage to nail, initial encounter (principal)
CPT/HCPCS: 99283

== ENCOUNTER 2022-10-04 12:05 | Emergency (ER) | payer SELFPAY ==
--- OUTSIDE RECORDS SUMMARY | 2022-10-04 12:20 | XMS REPORT | Continuity of Care Document ---
:1985 Author Organization [facility] t Address [address] [facility] [address] [place] [address] Care Team Providers Name Role Phone Izabela Jaeger MD Primary Care Physician [phone] AKANKSHA CHEATHAM Attending Clinician Unavailable Chaparrita LORENZ, Akanksha Attending Clinician Aida LORENZ, Satinder Pat Attending Clinician Beth LORENZ, Minal Mcdonald Attending Clinician [phone] Homer Rajput MD, Ruthie Robles Attending Clinician [phone] Davide LORENZ, Aldo Davis Attending Clinician [phone] Jamila Harrington CRNA Attending Clinician [phone] Kathryn LORENZ, Mary Alice Grover Attending Clinician [...] Date Date Clinician NO KNOWN Allergy Active [facility] Social History Social Habit Start Date Stop Date Quantity Comments Source Sex Assigned At [birth year] HAROLDO Saenz [facility] Medications Ordered Filled Start Stop Current Ordering Indication Dosage Frequency Signature Comments Components Source Medication Medication Date Date Medication? Clinician (SIG) Name Name Dose 0 No Unknown 11-23 00:00: 00 Vitamin D3 2020-1 No 1(400 10 mcg (400 0-27 unit) unit) 00:00: tablet 00 Vitamin D3 2020-0 No 1(400 10 mcg (400 6-20 unit) unit) 00:00: tablet 00 Vitamin D2 0 No 1(50,00 1,250 mcg 6-17 0 unit) [...] 37.5 mg 9-25 tablet 00:00: 00 promethazin 0 No 5mg/5 e-DM 6.25 3-21 mL mg-15 mg/5 00:00: mL oral 00 syrup fluticasone 2018-0 No 2mcg/ac propionate 3-21 tuation 50 00:00: mcg/actuati 00 on nasal spray,suspe nsion loratadine 2018-0 No 1mg 10 mg 3-21 tablet 00:00: 00 loratadine 2018-0 No 1mg 10 mg 3-21 tablet 00:00: 00 Keflex 500 2018-0 No 1mg mg capsule 07-22 00:00: 00 fluconazole 2017-0 No 1mg 150 [...] Respiratory Rate 2021-11-28 09:25:00 18.00 /min BP Diastolic 2021-09-05 08:58:00 84 mm[Hg] Weight Measured 2021-09-05 08:58:00 167.40 pounds Height Measured 2021-09-05 08:58:00 65.00 inches Body Temperature 2021-09-05 08:58:00 98.80 degrees Heart Rate 2021-09-05 08:58:00 64.00 /min Respiratory Rate 2021-09-05 08:58:00 17.00 /min BP Systolic 2021-09-05 08:58:00 137 mm[Hg] BP Systolic 2021-06-09 17:46:00 135 mm[Hg] BP [...] /min Systolic blood 2020-02-24 09:01:00 119 mm[Hg] [facility] Diastolic blood 2020-02-24 09:01:00 72 mm[Hg] [facility] Heart rate 2020-02-24 09:01:00 53 /min [facility] Body temperature 2020-02-24 09:01:00 36.61 Kenna [facility] Respiratory rate 2020-02-24 09:01:00 14 /min [facility] Oxygen saturation in 2020-02-24 09:01:00 100 /min [facility] Arterial blood by Medical Ce nter Pulse oximetry BMI 2020-02-23 14:00:00 34.95 kg/m2 [facility] Body height 2020-02-23 14:00:00 165.1 cm [facility] Body weight 2020-02-23 14:00:00 95.255 kg [facility] Procedures Procedure Date / Time Performed Performing Clinician [facility] e RHYTHM STRIP - SCAN 2020-02-27 09:01:36 Provider, Default [facility] TRANSFUSION SERVICE 2020-02-24 18:21:16 Provider, Default [facility] REPORT - [facility] BASIC METABOLIC PANEL (7) 2020-02-24 05:04:00 Minal Campos [facility] CBC (HEMOGRAM ONLY) 2020-02-24 05:04:00 [facility] HEPATIC FUNCTION PANEL 2020-02-24 05:04:00 [facility] MAGNESIUM 2020-02-24 05:04:00 [facility] TISSUE EXAM 2020-02-23 15:44:00 Kathryn [address] [facility] LAPAROSCOPY,CHOLECYSTECTO 2020-02-23 14:17:00 Mary Alice Peralta [facility] ABORH, MANUAL 2020-02-23 06:27:00 Rosalia Nair [facility] BASIC METABOLIC PANEL (7) 2020-02-23 05:45:00 Minal Campos [facility] CBC (HEMOGRAM ONLY) 2020-02-23 05:45:00 [facility] HEPATIC FUNCTION PANEL 2020-02-23 05:45:00 [facility] MAGNESIUM 2020-02-23 05:45:00 [facility] TYPE AND SCREEN, 2020-02-23 05:45:00 Walter Jones [facility] SCREEN, URINE 2020-02-22 16:34:00 Walter Jones [facility] HEPATIC FUNCTION PANEL 2020-02-22 04:14:00 Satinder Parra In [facility] BASIC METABOLIC PANEL (7) 2020-02-21 04:16:00 Satinder Parra I n [facility] HEPATIC FUNCTION PANEL 2020-02-21 04:16:00 Satinder Parra In [facility] MAGNESIUM 2020-02-21 04:16:00 Satinder Parra In [facility] CBC (HEMOGRAM ONLY) 2020-02-21 04:16:00 Satinder Parra In [facility] TRIGLYCERIDES 2020-02-21 04:16:00 [facility] MR ABDOMEN WITHOUT IV 2020-02-20 21:22:00 [facility] CONTRAST MRCP [facility] IGG SUBCLASS-4 ONLY 2020-02-20 15:19:00 [facility] SARS-COV2/RT-PCR ([facility] & 2020-02-20 10:39:00 [facility] REF LABS) [facility] BASIC METABOLIC PANEL (7) 2020-02-20 05:39:00 [facility] HEPATIC FUNCTION PANEL 2020-02-20 05:39:00 [facility] MAGNESIUM 2020-02-20 05:39:00 [facility] CBC W/PLT COUNT & AUTO 2020-02-20 05:39:00 [facility] Plan of Care Planned Activity Planned Date Details Comments Source Future Scheduled 2023-01-[address] [facility] Test 00:00:00 (Season Ended) [code Medical Center = INFLUENZA VACCINE (Season Ended)] Future Scheduled 2022-05-[address] [facility] Test 00:00:00 (12+) [code = [facility] DEPRESSION SCREENING (12+)] Future Scheduled 2022-01-[address] [facility] Test 00:00:00 (#1) [code = [facility] INFLUENZA VACCINE (#1)] Future Scheduled 2021-05-[address] [facility] Test 00:00:00 (12+) [code = [facility] DEPRESSION SCREENING (12+)] Future Scheduled 2020-01-[address] [facility] Test 00:00:00 (#1) [code = [facility] INFLUENZA VACCINE (#1)] Future Scheduled [address] [facility] 00:00:00 malignant neoplasm of [facility] cervix (procedure) [code = 845180125] Future Scheduled [address] [facility] 00:00:00 malignant neoplasm of [facility] cervix (procedure) [code = 902505884] Future Scheduled [address] [facility] 00:00:00 malignant neoplasm of [facility] cervix (procedure) [code = 081870596] Future Scheduled [address] [facility] 00:00:00 (procedure) [code = [facility] 05976371] Future Scheduled [address] [facility] 00:00:00 (procedure) [code = [facility] 82020606] Future Scheduled [address] [facility] 00:00:00 (procedure) [code = [facility] 47019099] Future Scheduled 2005 DTAP/TDAP/TD VACCINES [facility] 00:00:00 (1 - Tdap) [code = Medical C enter DTAP/TDAP/TD VACCINES (1 - Tdap)] Future Scheduled 2005 DTAP/TDAP/TD VACCINES [facility] 00:00:00 (1 - Tdap) [code = Medical C enter DTAP/TDAP/TD VACCINES (1 - Tdap)] Future Scheduled 2004 HEPATITIS C [facility]CRE[facility]ING [facility] 00:00:00 [code = HEPATITIS C Medical Center SCREENING] Future Scheduled 2004 HEPATITIS C [facility]CRE[facility]ING [facility] 00:00:00 [code = HEPATITIS C Medical Center SCREENING] Future Scheduled [address] [facility] Test 00:00:00 [facility] r Screening (12+) [code = Tobacco Cessation Counseling and Screening (12+)] Future Scheduled 1986 COVID-19 VACCINE (#1) [facility] 00:00:00 [code = COVID-[address] VACCINE (#1)] Future Scheduled 1985 COVID-19 VACCINE (#1) [facility] 00:00:00 [code = COVID-[address] VACCINE (#1)] Goal Plan of Care Note [code = 71989-6] Goal Plan of Care Note [code = 43411-4] Goal Plan of Care Note [code = 25221-0] Goal Plan of Care Note [code = 96703-9] Goal Plan of Care Note [code = 96099-4] Goal Plan of Care Note [code = 02960-2] Goal Plan of Care Note [code = 07513-4] Goal Plan of Care Note [code = 68746-6] Goal Plan of Care Note [code = 61749-4] Goal Plan of Care Note [code = 25215-7] Goal Plan of Care Note [code = 04017-2] Goal Plan of Care Note [code = 52827-6] Goal Plan of Care Note [code = 28960-6] Goal Plan of Care Note [code = 68884-4] Goal Plan of Care Note [code = 71462-2] Goal Plan of Care Note [code = 02340-5] Goal Plan of Care Note [code = 22417-2] Goal Plan of Care Note [code = 44515-2] Goal Plan of Care Note [code = 02787-8] Goal Plan of Care Note [code = 63979-0] Goal Plan of Care Note [code = 66795-7] Goal Plan of Care Note [code = 09019-7] Goal Plan of Care Note [code = 84066-6] Goal Plan of Care Note [code = 66504-7] Goal Plan of Care Note [code = 52688-4] Goal Plan of Care Note [code = 19776-9] Goal Plan of Care Note [code = 58725-9] Goal Plan of Care Note [code = 87084-3] Encounters Start End Encounter Admission Attending Care Care Encounter Source Date/Time Date/Time Type Type Clinicians Facility Department ID 2020-02-20 Inpatient ER ABHI CHEATHAM [facility] [id number] [facility] 02:52:00 [facility] 2021-11-28 2021-11-28 Outpatient [id number] 00:00:00 00:00:00 Visit [id number] 2020-02-20 2020-02-24 Hospital ER Akanksha Cheatham [facility] [id number] [facility] 02:52:00 11:29:00 Encounter Satinder Parra [facility]iekh SrRuthie eden [facility] 2020-02-23 2020-02-23 Anesthesia Aldo Augustine [facility] [id number] [facility] 14:32:[facility] 17:20:00 Event Len Jamila Grubbse [facility] 2020-02-23 2020-02-23 Surgery Kathryn, [facility] [id number] 13:00:00 15:15:00 Mary Alice [facility] Results Test Description Test Time Test Comments [...] K/UL ABS NUCLEATED RBCS (test code = 41682) 0.00 K/UL CBC W/AUTO [id number] 00:00:00 Test Item Value Reference Range Interpretation [...] NUCLEATED RBCS (test code = 0.00 K/UL 72074) [id number] 00:00:00 Test Item Value Reference Range Interpretation Comments TSH, THIRD GENERATION (test code 2.520 UIU/ML = 2821) [id number] 00:00:00 Test Item Value Reference Range Interpretation Comments TSH, THIRD GENERATION (test code 2.520 UIU/ML = 2821) CBC W/AUTO [id number] 00:00:00 Test Item Value Reference Range Interpretation [...] NUCLEATED RBCS (test code = 0.00 K/UL 49823) CBC W/AUTO [id number] 00:00:00 Test Item Value Reference Range Interpretation [...] NUCLEATED RBCS (test code = 0.00 K/UL 04534) HEMOGLOBIN [id number] 00:00:00 Test Item Value Reference Range Interpretation Comments HEMOGLOBIN A1c (test code = 06049) 5.4 % HEMOGLOBIN [id number] 00:00:00 Test Item Value Reference Range Interpretation Comments HEMOGLOBIN A1c (test code = 65132) 5.4 % LIPID [id number] 00:00:00 Test Item Value Reference Range Interpretation Comments CHOLESTEROL (test code = 2210) 155 MG/DL TRIGLYCERIDES (test code = 2232) 63 MG/DL HDL CHOLESTEROL (test code = 2220) 50 MG/DL CALC LDL CHOL (test code = 2237) 90 MG/DL RISK RATIO LDL/HDL (test code = 1.80 RATIO 2238) COMPREHENSIVE METABOLIC [id number] 00:00:00 Test Item Value Reference Range Interpretation Comments GLUCOSE (test code = 2217) 92 MG/DL BUN (test code = 2208) 14 MG/DL CREATININE (test code = 2214) 0.49 MG/DL eGFR AMER. (test code 147 ML/MIN/1.73 = 94856) eGFR NON- AMER. (test 127 ML/MIN/1.73 code = 96491) CALC BUN/CREAT (test code = 29 RATIO 2235) SODIUM (test code = 2231) 143 MEQ/L POTASSIUM (test code = 2228) 4.5 MEQ/L CHLORIDE (test code = 2215) 106 MEQ/L CARBON DIOXIDE (test code = 29 MEQ/L 220) CALCIUM (test code = 2209) 9.1 MG/DL [...] ALT (test code = 2219) 13 U/L [id number] 00:00:00 Test Item Value Reference Range Interpretation Comments TSH, THIRD GENERATION (test code 2.220 UIU/ML = 2821) [id number] 00:00:00 Test Item Value Reference Range Interpretation Comments TSH, THIRD GENERATION (test code 2.220 UIU/ML = 2821) VITAMIN D, 25 [id number] 00:00:00 Test Item Value Reference Range Interpretation Comments VITAMIN D, 25 OH (test code = 4958) 34 NG/ML FERRITIN [ADDED]2020-11-03 00:00:00 Test Item Value Reference Range Interpretation Comments FERRITIN (test code = 2075) 26 NG/ML [id number] 00:00:00 Test Item Value Reference Range Interpretation Comments TSH, THIRD GENERATION (test code 1.450 UIU/ML = 2821) [id number] 00:00:00 Test Item Value Reference Range Interpretation Comments TSH, THIRD GENERATION (test code 1.450 UIU/ML = 2821) CBC W/AUTO [id number] 00:00:00 Test Item Value Reference Range Interpretation [...] code = 1015) 399 K/UL CBC W/AUTO [id number] 00:00:00 Test Item Value Reference Range Interpretation [...] = 1015) 399 K/UL VITAMIN D, 25 [id number] 00:00:00 Test Item Value Reference Range Interpretation Comments VITAMIN D, 25 OH (test code = 4958) 21 NG/ML IGG SUBCLASS-4 [id number] 18:26:00 Test Item Value Reference Range Interpretation Comments Igg 4 (test code = 20.9 mg/dL 20190802) [place] (test code = Performing Lab [facility] [place]) Diagnostics [facility] [address] [place] [address] Luisito Pitt MD, PhD, AN[facility]IO [facility] [id number] 11:38:00 Test Item Value Reference Range Interpretation Comments Case Report (test code Surgical Pathology = 104) Report Case: [id number] Authorizing Provider: Mary Alice Peralta MD Collected: 02/23/2020 03:44 PM Ordering Location: [facility] PERIOPERATIVE Received: 02/24/2020 09:06 AM SERVICES Pathologist: Jo Sams MD Specimen: Gallbladder DIAGNOSIS (test code = [id number] 3220) uZzEwMzNcZnRuYmpcdWMxIH oftsQjYJeko8KvP1AfSwOhV FxhbnNpXGRlZmxhbmcxMDMz IXV1gkNcTFHnFRsvKFAqDYl qCn5dtFEwlDgwRtSdRMJgp8 dwqqWFitsvnKm3o6qpJSJpT tL7sAYaNIhfS9pnwkVotQWe ARZbEFv3xL13PCFjmB8ooQD sIDtccmVkMFxncmVlbjBcYm d4ORJcY0ncBDUaTKNgW6JqA X2bYJCkMhj4KQT1MCZ2uCwq c1N8vRKzhJVpyLprOxJvUtS iMHAFe9UxOHw7iVutA6LeMH FoYcD1aLZuLIGpIJhnDTRkI EGffqR3nD72OXazvhD1aLJt e7Ofk55nx417oG0qoEMtXQU 1XUIgXIUwjOAuLMWjHPX4XN CrrTCbP4u9WlKtwMBlY6S7N vDllNYcC9I0BeAzoLMyO7B5 SnDerLYpVJAxhUBcMs4wbNM luJZhiw3gjj86CYO2x1CgrS luZYJ6IAT3TwQdDv7miEJyY PGdRY0hBxHyhKElACGorq05 vAklANifnjTjiR6xCfSjSPX zcZOaKWYhHH8qiJNhPRMxiD 5ucmxjXHBnYnJkcmhlYWRcc PjhurZnEw0dsVetUCB9EYij N2pfzX8vXhX2DLpiS0hsiP3 dGGo4DBuvjBK3PCRvcR3vEL 1kcyded1qhVdAsRO0phkjcj 9oeOzXpZH6ssbz5p4dqDeJq KF3pqyvho4msNnHzUKcyENR tgcjdJPCvk7ZjqzapFYNdf0 KrU1XwvNrmE32mdQybC44pY CUyfNflkN7prGlmqN6sSoTc ZnMyMFxxbFxwbGFpblxmMFx mczIwXHBsYWluXGYwXGZzMj WmgJMsRAMfwkWfdNneqF6yU jBcZnMyMFxwbGFpblxmMVxm czIwIEEuIEdBTExCTEFEREV IVEUDUW7FWOZCQ1UMN7JEVZ f9HCYczneaeXcgaHTyppibR FxmczIwXHBsYWluXGYxXGZz EpJaKWRhYRXkPXEXNv9WROA rV7jALZWFZTHVWYQUEj0uzN rohS8lTnKkHmCzNGthYQR5i 1xydGYxXHNzdGUxODAwMFxh bnNpXGRlZmxhbmcxMDMzXGZ 0bmJqXHVjMVxkZWZmMHtcZm 6cuPAkyMcuIoAcBJOlw9qmm aVBvodxyAe9s2ldZJImTbF2 dAFdLZyqE5ukvdGvxVUcHZC tYMr4wD82DQAwzI5jgJBnEA iqakNkOqH0JEkoRNKkBeQ2H CEyjZQnPOHbS6xhIDFeJEal WRZyWQpagPBuKPZ6vInjw6M 5bGVzaGVldHtcZjBcZnMyMi YBe0MvYXx4cQbvX9GwIYJsO jU2jMEsUTKuUNxgVRGuVAWx tzX6kE52VQjsdzR1zTPve2X mm36jg761iV3axSZxPFB8UI RaGFBqqYCbELJoHJK0VOFlw SWiL4wkRQKrAS6bwourPGku XQhpRAYqjUZ6EUTxjMLoO9K oIMAcPTdbGWLljxr3KjYiGt 3qjMFxhUhsGQaof4rzd8fle DCbTzo1HRNtDcTdFjmcTKyj w6Yfu5qlHCUdgn9aZMS7sZA ybUbgf1E4yIWcLRCalDYrTU UfDF4vdUQaBIYqbF8lzxfnM HBnYnJkcmhlYWRccGdicmRy Gg5suFcyGSU3QNxhE2tbgG4 eDzV2BRsyT1idoF8jOOo1DO vjTTVhgOA7gvD1KRXqlHHnF 7YleH6aRZIuHD9hjmj0p1au JFF1QAdqIJHpWdG6wkQ7DLP skTDiDETfrUqhTJmla965SP X3GvHjHFIam9QaO5HdgZefB 96vdSwgJ53fQBBemGumpR4t pGyczZ9ePbSeUgYiYXkitGi zJC4xWQWlY3mmuPBaHOHnHE RbV9xkDcJvaL0ijHezYXoiw bFvJYJgLup1GGCzpUXeZASk Abh5FRWdPOBpT33qslzhOAF 0xQ9zo3atg6XiKCapZQP9HO Aoq29yCVbtvoU7LIjhSo17X RsfMNX3ZGmmUDW1fV== CPT Code(s) (test code w6aozHRuCAWxyWFzUuCkDQC = 3357) qUXSfj5pbCAEwvQKhEaNpDr NcZnRuYmpcdWMxXGRlZmYwe 0rny747zLUtg3fbQWMrHwS5 tDIeHIYewGEqR855b4zfm1b bxhBrxZT1AGVjSWL5OQiksq LrrfJ9HPkqxEMiCvV1ZXxtu dSoPXifivJblsXtShe0JHAm L304HRT4nZrnz0lsJPL9YBF hDZHnKdAuOu1qcIBzD316CF BlXYNFUQVlaCr3JDTmyqUli tSltZCOg755L595o3yxYQKn ajPudJlYbfflb6dyI881DHF hcGVydzEyMjQwXHBhcGVyaD N5PQAsAO5rclggDbZaIN7dz hurJiXgRJ0rfrp1FbHbRD6y cmdiNzIwXGhlYWRlcnkwXGZ ss9SdtatbQS4sW4Zov3J3fN 9maXRcZGVmdGFiNzIwXGZvc o7imAOlGIyjm4BvXVE9mlY0 cGJhsMOdODWuXE29Eyrfz6S zKmrzDEZ5WOCyhiFhs6Tla3 uoVtHitrNlM0hcZ7EgPJDpO FIvLEBxGyKgasNno5Nuw7Gk qDTmaKd9z7hnPMAkTJAagBn qw9stKPQ2PTStQ6G5qXRur3 dgELjkCLIusHX2mngeBHueS HPaiqM4igfcFYjlGHIxqLF8 fnhpYEnaPLMuErO3acudMZa mWYPzZQS7KRera893OGX1IQ xzYmtwYWdlXHBnbmNvbnRcc GduZGVjXHBsYWluXHBsYWlu XGYwXGZzMjRccWxccGxhaW5 wZdMfRoGrGMznAC4pZEIaS9 bxwGEqQIDdSVRuP1jvApBah N8ixDyqWSlxnrPsBWy8UiZ9 XHBhcn0= CLINICAL HISTORY (test l1rtzDCzYJAtrSDhGcIkATD code = 3356) lYYMfg4mrWYPifXHoYnQkJu NcZnRuYmpcdWMxXGRlZmYwe 3ppm009dIHrv4zaEXZgLoR7 jTItCJQmqFXlS018v4pxd2z frmGqsSM4GSUbOUU9NUfipj FtsjH8QFngkEPfCgX8GCned fGhVVlffwNnivEaUbk9QQWa O234SLN8wYjbu6oxGIO7AFW qGHIqCyFwQg9yzJEqN826ZW SoDDYTIRUhfJb4OSLpsaAwb yFppFZOh573H555x0qqEUQh xlCzhCdUclida1amM667VOO hcGVydzEyMjQwXHBhcGVyaD P4ZXPiZT9qdkoyQkIbKN6wh cquMnEpWC3aqnz7TsFlJX5b cmdiNzIwXGhlYWRlcnkwXGZ vm0RfcbgoQG7tK8Szw8M6zE 9maXRcZGVmdGFiNzIwXGZvc f5qpGKrYEhqh6OwEIJ0ayS0 yIOfhSAtKVGsQT90Onttn1V eEydtEYB2EIJwqrTbf5Dip2 bxKqOjaeGmC3klQ9EnOKFnL DNkXVDsMiCifbUoe4Poj5Ib iUDwbFv7p1nfDTZeMADvgDz rm3rqEDV2RXVgJ5G4fEHul2 ibXOjgKHMbwSK6lmhmVNovN LXutmZ6opmpQKpiHEUfhTK1 wtshRFedBLLzVmH9ouumHRl nOMPuPOT6IWjuh350YDK6LN xzYmtwYWdlXHBnbmNvbnRcc GduZGVjXHBsYWluXHBsYWlu XGYwXGZzMjRccWxccGxhaW5 fAzPbVvQtOHutGO5iXEVvQ7 zcqDFgKFPaPQJwS3maBnLqr T9nzZlsAKwaazVjWMaoiPaw zS7mIHHnDX9kayGatQx8hTN gXHBhcn0= SPECIMEN SOURCE (test z3cdlRMlOQLenYJtJkEmLES code = 3377) vBPHyw1tcKWFfkRAlMkDfNo NcZnRuYmpcdWMxXGRlZmYwe 4lkg627dQJwe6oxACEgFxA4 bHJbOKBawBHrR990m0xdf2w xbbTrvFC6TXUrVAG4TWytdu GzrzQ4DZgnoVVfQoF1VFiem nThEPuoveNtqjGeFxd2FHDd Q358WMH2bYdvc5cgKJX4NIZ mRWWnLmXoIp3xoOKdA680CN IpPZMCQECayQg2BPLzsuUrz ySkpYQJj729I671z8beJPBx klYmlZkOfizis3mvZ696EHX hcGVydzEyMjQwXHBhcGVyaD M9IHFmQT7rixqoSoDsEI0uv bpaBdRfNV5bbbk0TrYiZA8s cmdiNzIwXGhlYWRlcnkwXGZ rp4XkjhksCR0pB0Bmr2P4yJ 9maXRcZGVmdGFiNzIwXGZvc l0wbQPjOAetj7AfAFL3ayW1 vBBctRYcIXMwYW70Yxaof2G bQjkiFXU6NLKpsvUnh0Zps8 frToLracItE8saR2PpIQYmA ZMxWBQmIdZkmpVen7Idf1Ij pOZhcUv2s7jhHRZiRPJtyUc ky8pzGEP8ODAyM5O7vAJkx4 blURrpMRCzvTZ4neyhQRreB IQkbqV6sfyuMXfmCBTppBI3 vxyvEEctEOIcTrP0nydgLLn qGNTxPSO2NAvqx175INI2KC xzYmtwYWdlXHBnbmNvbnRcc GduZGVjXHBsYWluXHBsYWlu XGYwXGZzMjRccWxccGxhaW5 gFvWmAxFzIAfqXS9jRETeX8 ylgTMvUGDiUXJmI8qnHiFff E2wwBtrZQuqdgExQSzpoBot bGFkZGVyIFxwYXJ9 GROSS DESCRIPTION k6uqzACzXCIooHZzOhFxPYY (test code = 3366) yXELav8stOTIneZFaOdEvZr NcZnRuYmpcdWMxXGRlZmYwe 3wpi597eNNfk0haFQOeJoD6 qIOgZDWfgLRqV643l5pfi5f ebaOtnII0WZFpVVZ2AGmzat LsreG9VDwmjKRhCwJ8HEikm cYdLZoduvVjcvVoCzy2CWPy X245GRI7mLulk4efDGS4ZQL uCGFlUhWsGk8uqYWdW260PJ OzMMHWZHAapNp2OPQkeyJng eUezJLHf678O822o2ptQDKy jnGjjMsHfwdmv0xmV095GMV hcGVydzEyMjQwXHBhcGVyaD Q5NLOxPR7cmyixHfQbUL1dm cgiFsHrIF7jrce1KlSyGW6k cmdiNzIwXGhlYWRlcnkwXGZ kn8GtipwoJA1wX0Fdg0X9oB 9maXRcZGVmdGFiNzIwXGZvc d8iaGBhGApgm0YjMLN4xyY7 uDGwnNTeVFElWW16Arfyk9T vIgxvPDG5LRDofvOip3Jhh4 uyGvXxkpSnA3ijA2CwMLYrY AMoTOXlPoQfbaBdt1Omu6Bq kEWycVl3n7mrSRKjDWMitFw yy3xbMLJ5JHCqT0W6aSDln9 uzQXviFNZzjTO4firkXFitK IKjgdG8weyrYBsuGNEnfND8 sunsBQviYQPlOpR4bsulDTo zMRBhWMD8XDbbe653EYG2OK xzYmtwYWdlXHBnbmNvbnRcc GduZGVjXHBsYWluXHBsYWlu XGYwXGZzMjRccWxccGxhaW5 zKkAjYbToATrjKZ0tEQSoY5 xtfUEkGVBjCLEiC1poQzXda U5brAecIXnofbGuGCMmB8Tp hsSeTYqcXHZgrz2arRphBHq yKeMrUSEev4b5gPS7yVUadJ M0lVAdcKotFB4ezQJnCONoT 4Xmz0marpYlrR0cSFXsAE2p ICJnYWxsYmxhZGRlciIgaXM rOTX7GtYnmXHgItDhdOCwOf AkP86aiX27IUC3JEtnvCxfg GFkZGVyIHdpdGggYSAwLjIg Z02djN4flTAfO9TlWLttCK5 oASMjOHmtCXHlEJ1vdRWjYV J3oFDwiDHuPOC8d9CmBpFii OW3AlCTmGNnm8Jwm4TvXBij RKQ9vhKxZN9wbD1kOIAytG1 uuQvvKU1oZRx6rQNuDS0qAf 4gVGhlIHNwZWNpbWVuIGlzI G1bCV2zJTN6lvXnLZCwKRji HSHkvq65aD6vtIScfIA4CH5 BTC3nQCkrKMNuGEOiiDWsOB UepLT8aIfvWBKqYX1xmBVwJ GVudGlmaWVkLiBUaGUgbXVj w8KuYLhsBQwpFGVwTTP0kbJ oGXN2hOU1KPXhXE9tTHAfu6 PfEKwvDSBqq7RklqPsOJVzg 8BdiVVwViZ7ASkpy0fvy3As wXMrsU5mCsCZnCWja7GymAX cVLEalCJppyKaJlIaN63tsR vwX2czAXZokYGay7NyjXN7a UBzECEbV1Koc63wJQWmINFg iTUyyBS3GPVpjJ5mSUQePAF iQAmydNgbgEovBLhoo7BrDD T2o4WlDyYhpLH9HJ9sawgva jOwoiEFTG4aHRXjHLfxBTAp cn0= MICROSCOPIC d7bgcGMdUBAtiRAoWtNrOAD DESCRIPTION (test code zOUJou9udNSTgjCNhOmEwCt = 3371) NcZnRuYmpcdWMxXGRlZmYwe 3vcl579dQFlt2frGQWkWnM0 jEFyKZPwcYAhP870g3rma8a zclMuwQX3TMOlUCR4NStmfx IkylJ8WRbnkJEiGbW7CLlry uQiYEwhwzGcngAhFhf4WSEt Q420HQB8iHoab9keQQB4HAX pAMNrGgDyGo7erLIoY593OQ BpVUWRGYGzoGs8AGQpcaCdo jYvyOVWf467O915t1wlHFJv fgKbqGhAiblfe0joT397TNG hcGVydzEyMjQwXHBhcGVyaD H7PFCwJN0ixkdfZsBnMW4mf emzJxWkOJ0zbsq5GfOcHW7v cmdiNzIwXGhlYWRlcnkwXGZ nm8UrkmckCB8qP0Xzq7Q8gR 9maXRcZGVmdGFiNzIwXGZvc l2sfXExPLnqw6KbWBT9ysX7 aWEhqONqAXSyXO00Feegg9J aMipdWBI3LWYezgNrg1Vkv2 baScLmeeNaX9lzB1DqOYDaT OBkAJNoBsVfioMrc2Cjo5Ye sATghHh4w3wyOYTgIYBvnRj bj4seFMA6QHQxG4S0yCDrn3 gtYPldRHUcgXS1owxiVBebC JMjnaD7vdlqMBrvENDevCR4 nvvcFNhpLWArTdU2weolXAt kFZXeDZM9QIgpb791NKI7MN xzYmtwYWdlXHBnbmNvbnRcc GduZGVjXHBsYWluXHBsYWlu XGYwXGZzMjRccWxccGxhaW5 vMzTcNlEoJVbsKN4hVEQjY6 icnQEpALBcGXFqF0trLdBzl P9psPcyVBddpjLeUSUpvbMi av9iRL5jmDZrgX== Gross assessment was [facility] performed at ([facility], code = 2777) Department of Pathology, [address] [place] [id number], Technical component [facility] was performed at ([facility], code = 2778) Department of Pathology, [address] [place] [id number], Professional component [facility] was [facility] at ([facility], code = 2779) Department of Pathology, [address] [place] [address], [facility] [id number] 11:38:00Surgical Pathology Report Case: [id number] Authorizing Provider: Mary Alice Peralta MD Collected: 02/23/2020 03:44 PM Ordering Location: [facility] PERIOPER[facility]IVE Received: 02/24/2020 09:06 AM SERVICES Pathologist: Jo Sams MD Specimen: Gallbladder A. GALLBLADDER, CHOLECYSTECTOMY: - CHRONIC CHOLECYSTITIS. Signing Pathologist Direct Phone Line: [phone] signed by Jo Sams MD on 02/26/2020 at 11:38 [id number] pancreatitis Gallbladder Received in formalin labeled with the patient'sname, accession number and "gallbladder" is a 9.0 x 3.5 x 2.3 cm intact gallbladder with a 0.2 cm inlength x 0.2 cm in diameter attached cystic duct. The serosa is purple-pink, smooth and hyperemic. The specimen is opened to reveal approximately 5 mL of green bile. Calculi are not identified. The mucosa is green, trabeculated and displays a sparse amount of yellow stippling. The wall measures 0.2 cmthick. Melt Down Furnace Operator sections are submitted in A1-A2, with the inked cystic duct margin in A1. PA/ew Performed.[facility], Department of Pathology, [address] [place] [address], [facility], [address] [place] [address], [facility], Department of Pathology, [address] [place] [address], Rbufh metabolic panel 2020-02-24 07:35:00 Test Item Value Reference Range Interpretation Comments Sodium (test code = 139 meq/L 068-326 6212-2) Potassium (test code = 4.5 meq/L 3.5-5.1 2823-3) Chloride (test code = 105 meq/L 98-107 2075-0) CO2 (test code = 26 meq/L 22-29 2028-9) BUN (test code = 2 mg/dL 7-21 L 3094-0) Creatinine (test code 0.55 mg/dL 0.57-1.25 L = 2160-0) Glucose (test code = 114 mg/dL 70-105 H 2345-7) Calcium (test code = 8.2 mg/dL 8.4-10.2 L 42699-3) EGFR (test code = 127 mL/min/1.73 [place] [address]-8) NOT ACCURATE CREATININE CLEARANCE IN PREDICTING GLOMERULAR FILTRATION RATE . ESTIMATED GFR I S NOT APPLICABLE FOR DIALYSIS PATIENTS. [place] (test code = [place]) Remote Sensing Analyst ID - TEAGAN C Lab Interpretation Abnormal (test code = 59411-0) [facility] function [id number] 07:35:00 Test Item Value Reference Range Interpretation Comments Protein, Total (test 6.0 See_Comment [Autom ated code = 2885-2) message] The system which generated this result transmit tariq reference range : 6.0 - 8.3 gm/dL . The reference range was not u sed to interpret th is result as normal/abnormal . Albumin (test code = 3.0 g/dL 3.5-5 L 00261-4) Total Bilirubin (test 0.3 mg/dL 0.2-1.2 code = 1975-2) Bilirubin, Direct 0.2 mg/dL 0.1-0.5 (test code = 1968-7) Alkaline Phosphatase 141 U/L 40-150 (test code = 6768-6) AST (test code = 59 U/L 5-34 H 1920-8) ALT (test code = 81 U/L 6-55 H 1742-6) [place] (test code = [place]) Remote Sensing Analyst ID - TEAGAN C Lab Interpretation Abnormal (test code = 52484-2) [facility]esium2020-10-[facility] 07:35:00 Test Item Value Reference Range Interpretation Comments Magnesium (test code = 1.4 mg/dL 1.6-2.6 L 47774-5) [place] (test code = [place]) Remote Sensing Analyst ID - TEAGAN C Lab Interpretation (test Abnormal code = 75197-6) [facility]2020-10-06 07:35:00 Test Item Value Reference Range Interpretation Comments MAGNESIUM (BEAKER) (test code = 1.4 mg/dL 1.6-2.6 L 627) Remote Sensing Analyst ID - TEAGAN CBASIC METABOLIC [id number] 07:35:00 Test Item Value Reference Range Interpretation [...] S NOT APPLICABLE FOR DIALYSIS PATIEN TS. Remote Sensing Analyst ID - TEAGAN CHEPATIC FUNCTION [id number] 07:35:00 Test Item Value Reference Range Interpretation [...] code = 81 U/L 6-55 H 347) Remote Sensing Analyst ID - TEAGAN CCBC (Hemogram only)2020-02-24 05:46:00 Test Item Value Reference Range Interpretation Comments WBC (test code = 6690-2) 8.9 See_Comment [A utomated message] The system [employer] generated this result transmitted ref erence range: 3.5 - 10 .5 K/L. The refe rence range was not u sed to interpret this result as normal/abnor mal. RBC (test code = 789-8) 4.19 See_Comment [Au tomated message] The system [employer] generated this result transmitted ref erence range: 3.93 - 5 .22 M/L. The refe rence range was not u sed to interpret this result as normal/abnor mal. MCHC (test code = 786-4) 31.4 See_Comment L [A utomated message] The system [employer] generated this result transmitted ref erence range: [...] See_Comment [Aut omated message] 777-3) The system [employer] generated this result transmitted ref erence range: 150 - 45 0 K/CU MM. The referen ce range was not u sed to interpret this result as normal/abnor mal. MPV (test code = 9.9 fL 9.4-12.3 15829-5) nRBC (test code = 413) 0 See_Comment [Aut omated message] The system [employer] generated this result transmitted ref erence range: 0 - 0 /1 00 WBC. The refere nce range was not u sed to interpret this result as normal/abnor mal. Lab Interpretation (test Abnormal code = 20970-3) [facility] ([facility] ONLY)2020-02-24 05:46:00 Test Item Value Reference [...] (BEAKER) (test code = 413) BASIC METABOLIC [id number] 07:17:00 Test Item Value Reference Range Interpretation [...] S NOT APPLICABLE FOR DIALYSIS PATIEN TS. Remote Sensing Analyst ID - [id number] 07:11:00 Test Item Value Reference Range Interpretation Comments MAGNESIUM (BEAKER) (test code = 1.4 mg/dL 1.6-2.6 L 627) Remote Sensing Analyst ID - EDASIHEPATIC FUNCTION [id number] 07:11:00 Test Item Value Reference Range Interpretation [...] code = 76 U/L 6-55 H 347) Remote Sensing Analyst ID - PRINCE, [id number] 07:09:00 Test Item Value Reference Range Interpretation Comments ABO Grouping (test code = 2588) O Rh Factor (test code = 2589) POS [facility] CenterType and screen, [id number] 06:56:00 Test Item Value Reference Range Interpretation Comments ABO/RH AUTOMATED (BEAKER) (test O POSITIVE code = 2260) Ab Scrn (test code = 890-4) NEGATIVE [facility] ONLY)2020-02-23 06:22:00 Test Item [...] 0-0 (BEAKER) (test code = 413) Screen, [id number] 17:03:00 Test Item Value Reference Range Interpretation Comments Preg Test, Ur (test code = 2112-1) Negative [facility] CenterPREGNANCY SCREEN, [id number] 17:03:00 Test Item Value Reference Range Interpretation Comments TEST URINE (BEAKER) (test Negative code = 583) HEPATIC FUNCTION [id number] 05:02:00 Test Item Value Reference Range Interpretation [...] code = 83 U/L 6-55 H 347) Remote Sensing Analyst ID - [id number] 13:08:00 Test Item Value Reference Range Interpretation Comments Triglycerides (test 64 mg/dL code = 2571-8) [place] (test code = [place]) TRIGLYCERIDE REFERENCE RANGELow Risk <150Borderline Risk 150-199High Risk 200-499Very High Risk >=500Operator ID - DESHAUN ZARCO [facility] [id number] 13:08:00 Test Item Value Reference Range Interpretation Comments TRIGLYCERIDES (ANTONINA) (test code = 64 mg/dL 540) TRIGLYCERIDE REFERENCE RANGELow Risk <150Borderline Risk 150-199High Risk 200-499Very High Risk >=500Operator ID - LILOGMR, ABDOMEN, [id number] 07:53:00Unlisted Reason for Exam - Click Yes [...] Denny Verified Date/Time: 02/21/2020 07:53:35 Reading Location: [facility] C013Y CT Body Reading Room MR abdomen without IV contrast [id number] 07:53:00Interface, External Ris In - 02/21/2020 7:55 [...] no loculated fluid collections. Signed: Mari Denny MDReport Verified Date/Time: 02/21/2020 07:53:35 Reading Location: [facility] B1 C013Y CT Body Reading Room El ectronically signed by: MARI DENNY MD on 02/21/2020 07:53 [facility] 05:09:00 Test Item Value Reference Range Interpretation Comments MAGNESIUM (BEAKER) (test code = 1.6 mg/dL 1.6-2.6 627) Remote Sensing Analyst ID - PIAYA LBASIC METABOLIC [id number] 05:09:00 Test Item Value Reference Range Interpretation [...] S NOT APPLICABLE FOR DIALYSIS PATIEN TS. Remote Sensing Analyst ID - PIAYA LHEPATIC FUNCTION [id number] 05:09:00 Test Item Value Reference Range Interpretation [...] code = 102 U/L 6-55 H 347) Remote Sensing Analyst ID - PIAYA LCBC (HEMOGRAM ONLY)2020-02-21 04:37:00 [...] Not Detected, (test code = Negative, See 70400-1) external report for linked test SARS-COV-2 [facility] PERFORMING LAB (test code = 81233-2) [place] (test code = Negative result for [...] of the Act. Fact Sheet for Healthcare Providers:https://www.Way2[employer]/sites/default/f alphonse/product/documents/F act_Sheet_HC_Providers_L bas_FOEJ-PfD-6.pdf Fact Sheet for Healthcare Patients:https://www.RADLIVE/sites/default/fi les/product/documents/Fa ct_Sheet_Patients_Lyra_S ARS-CoV-2.pdf Performing Laboratory:[facility] [place] [address] [facility] ([facility])2020-02-20 16:48:00 Test Item Value Reference Range Interpretation Comments SARS-COV2/RT-PCR (test Negative Not Detected, Negative, code = 5198061) See external report for linked test SARS-COV-2 PERFORMING LAB [facility] (test code = 7815877) Negative result for this test determines that [...] of the Act.Fact Sheet for Healthcare Prov iders:https://www.[employer]/sites/default/files/product/documents/Fact_Sheet_HC _Ktxrkpqyu_Cxtz_AADL-WkB-9.pdfFact Sheet for Healthcare Patients:https://www.[employer]/sites/default/files/product/docume nts/Nhja_Czjkr_Florplud_Yiio_WSCY-VkB-6.pdfPerforming Laboratory:[facility], [place] [id number] 07:22:00 Test Item Value Reference Range Interpretation Comments MAGNESIUM (BEAKER) (test code = 1.9 mg/dL 1.6-2.6 627) Remote Sensing Analyst ID - [place] FBASIC METABOLIC [id number] 07:22:00 Test Item Value Reference Range Interpretation [...] S NOT APPLICABLE FOR DIALYSIS PATIEN TS. Remote Sensing Analyst ID - MARGARITA FHEPATIC FUNCTION [id number] 07:22:00 Test Item Value Reference Range Interpretation [...] code = 162 U/L 6-55 H 347) Remote Sensing Analyst ID - MARGARITA FCBC with platelet count + automated [id number] 06:03:00 Test Item Value Reference Range Interpretation Comments WBC (test code = 6690-2) 8.4 See_Comment [A utomated message] The system [employer] generated this result transmitted ref erence range: 3.5 - 10 .5 K/L. The refe rence range was not u sed to interpret this result as normal/abnor mal. RBC (test code = 789-8) 4.70 See_Comment [Au tomated message] The system [employer] generated this result transmitted ref erence range: 3.93 - 5 .22 M/L. The refe rence range was not u sed to interpret this result as normal/abnor mal. MCHC (test code = 786-4) 31.3 See_Comment L [A utomated message] The system [employer] generated this result transmitted ref erence range: [...] See_Comment [Aut omated message] 777-3) The system [employer] generated this result transmitted ref erence range: 150 - 45 0 K/CU MM. The referen ce range was not u sed to interpret this result as normal/abnor mal. MPV (test code = 9.8 fL 9.4-12.3 58887-3) nRBC (test code = 413) 0 See_Comment [Aut omated message] The system [employer] generated this result transmitted ref erence range: [...] See_Comment [Aut omated message] 670) The system [employer] generated this result transmitted ref erence range: 1.56 - 6 .13 K/L. The refe rence range was not u sed to interpret this result as normal/abnor mal. # Lymphs (test code = 1.67 See_Comment [Auto mated message] 414) The system [employer] generated this result transmitted ref erence range: 1.18 - 3 .74 K/L. The refe rence range was not u sed to interpret this result as normal/abnor mal. # Monos (test code = 0.62 See_Comment H [Autom ated message] 415) The system [employer] generated this result transmitted ref erence range: 0.24 - 0 .36 K/L. The refe rence range was not u sed to interpret this result as normal/abnor mal. # Eos (test code = 416) 0.04 See_Comment [Au tomated message] The system [employer] generated this result transmitted ref erence range: 0.04 - 0 .36 K/L. The refe rence range was not u sed to interpret this result as normal/abnor mal. # Baso (test code = 417) 0.02 See_Comment [A utomated message] The system [employer] generated this result transmitted ref erence range: 0.01 - 0 .08 K/L. The refe rence range was not u sed to interpret this result as normal/abnor mal. Immature 0 % 0-1 Granulocytes-Relative (test code = 2801) Lab Interpretation (test Abnormal code = 28805-1) [facility] W/PLT COUNT & AUTO [id number] 06:03:00 Test Item Value Reference Range Interpretation [...] PERCENT (BEAKER) (test code = 2801) LIPID [id number] 00:00:00 Test Item Value Reference Range Interpretation Comments CHOLESTEROL (test code = 2210) 175 MG/DL TRIGLYCERIDES (test code = 2232) 116 MG/DL HDL CHOLESTEROL (test code = 2220) 50 MG/DL CALC LDL CHOL (test code = 2237) 102 MG/DL RISK RATIO LDL/HDL (test code = 2.04 RATIO 2238) COMPREHENSIVE METABOLIC [id number] 00:00:00 Test Item Value Reference Range Interpretation Comments GLUCOSE (test code = 2217) 87 MG/DL BUN (test code = 2208) 12 MG/DL CREATININE (test code = 2214) 0.63 MG/DL eGFR AMER. (test code 138 ML/MIN/1.73 = 16708) eGFR NON- AMER. (test 119 ML/MIN/1.73 code = 49618) CALC BUN/CREAT (test code = 19 RATIO [...] CALC GLOBULIN (test code = 3.2 G/DL 2240) CALC A/G RATIO (test code = 1.2 RATIO 2234) BILIRUBIN, TOTAL (test code = <0.2 MG/DL 2206) ALKALINE PHOSPHATASE (test 87 U/L code = 2204) AST (test code = 2218) 20 U/L ALT (test code = 2219) 18 U/L HEMOGLOBIN [id number] 00:00:00 Test Item Value Reference Range Interpretation Comments HEMOGLOBIN A1c (test code = 50249) 5.6 % HEMOGLOBIN [id number] 00:00:00 Test Item Value Reference Range Interpretation Comments HEMOGLOBIN A1c (test code = 21367) 5.6 % COMPREHENSIVE METABOLIC [id number] 00:00:00 Test Item Value Reference Range Interpretation Comments GLUCOSE (test code = 2217) 78 MG/DL BUN (test code = 2208) 12 MG/DL CREATININE (test code = 2214) 0.49 MG/DL eGFR AMER. (test code 150 ML/MIN/1.73 = 04250) eGFR NON- AMER. (test 130 ML/MIN/1.73 code = 78863) CALC BUN/CREAT (test code = 24 RATIO 2235) SODIUM (test code = 2231) 141 MEQ/L [...] = <0.2 MG/DL 2206) ALKALINE PHOSPHATASE (test 88 U/L code = 2204) AST (test code = 2218) 16 U/L ALT (test code = 2219) 13 U/L [id number] 00:00:00 Test Item Value Reference Range Interpretation Comments TSH, THIRD GENERATION (test code 2.880 UIU/ML = 2821) [id number] 00:00:00 Test Item Value Reference Range Interpretation Comments TSH, THIRD GENERATION (test code 2.880 UIU/ML = 2821) PAP TEST, THINPREP, [id number] 00:00:00 Test Item Value Reference Range Interpretation Comments SOURCE: (test code = Cervical/Endocervical 8001) SLIDES: (test code = 1 8011) LMP: (test code = 09/18/2017 8021) SPECIMEN ADEQUACY: (NOTE) (test code = 98205) INTERPRETATION: (test NO EPITHELIAL code = 00714) ABNORMALITY SEE BELOW DAY TRADER: MEGA Urrutia(ASCP) (test code = 8101) LOCATION: (test code (NOTE) = 50218) CPT: (test code = (NOTE) 8140) VAGINAL PATHOGENS DNA [id number] 00:00:00 Test Item Value Reference Range Interpretation Comments DANNA SPECIES (test code = ) NEGATIVE G. VAGINALIS (test code = 21205) NEGATIVE T. VAGINALIS (test code = 35392) NEGATIVE HPV HIGH RISK WITH GENOTYPE, [id number] 00:00:00 Test Item Value Reference Range Interpretation Comments HPV HIGH RISK INTERP (test code = NEGATIVE 26047) HPV 16 (test code = 29068) NEGATIVE HPV 18 (test code = 81031) NEGATIVE HPV, HR, OTHER GENOTYPES (test code NEGATIVE = 72612) GC AND CHLAMYDIA AMPLIFIED, [id number] 00:00:00 Test Item Value Reference Range Interpretation Comments GONORRHEA, TMA (test code = 51751) NEGATIVE CHLAMYDIA, TMA (test code = 42324) NEGATIVE CULTURE, THROAT [ADDED]2017-07-22 00:00:00 Test Item Value Reference Range Interpretation Comments CULTURE, THROAT (test SPECIMEN NUMBER: code = 84018) [id number] VAGINAL PATHOGENS DNA [id number] 00:00:00 Test Item Value Reference Range Interpretation Comments DANNA SPECIES (test code = ) NEGATIVE G. VAGINALIS (test code = 29528) NEGATIVE T. VAGINALIS (test code = 65083) NEGATIVE
--- NOTE | 2022-10-04 15:30 | ER ---
Nurse's Notes [facility] Name: Feliciano Blair Age: 37 yrs Sex: Female : 1985 Arrival Date: 10/04/2022 Time: 12:05 Bed IW1 Private MD: Diagnosis: Abdominal pain, unspecified;Nausea Presentation: 10/04 13:11 Chief complaint: Patient states: Woke up vomiting this morning, unable to keep anything nj1 down, now she has a headache and body aches. Coronavirus screen: Vaccine status: Patient reports being unvaccinated. Ebola Screen: Patient denies travel to an Ebola-affected area in the 21 days before illness onset. Initial Sepsis Screen: Does the patient meet any 2 criteria? No. Patient's initial sepsis screen is negative. Does the patient have a suspected source of infection? No. Patient's initial sepsis screen is negative. Risk Assessment: Do you want to hurt yourself or someone else? Patient reports no desire to harm self or others. Onset of symptoms was October 04, 2022. 13:11 Method Of Arrival: Ambulatory [facility] 13:11 Acuity: JOSE 3 nj Historical: - Allergies: 13:13 No Known Allergies; nj1 - PMHx: 13:13 Migraine; Pancreatitis; nj1 - PSHx: 13:13 Cholecystectomy; gastric sleeve; nj1 - Immunization history:: Client reports having NOT received the Covid vaccine. - Social history:: Smoking status: Patient denies any tobacco usage or history of. - Family history:: not pertinent. Vital Signs: 13:11 BP 132 / 88; Pulse 88; Resp 18; Temp 98.6(TE); Pulse Ox 100% ; Weight 74.84 kg; Height nj1 5 ft. 5 in. ; Pain 10/10; 13:11 Body Mass Index 27.46 (74.84 kg, 165.1 cm) nj1 13:11 Pain Scale: Adult [facility] ED Course: 12:06 Patient arrived in ED. am2 12:19 Claus Quiroz MD is Attending Physician. rt 13:13 Triage completed. nj1 13:13 Arm band placed on right wrist. nj1 13:26 Radiology exam delayed due to lab results not completed at this time. (BUN/Creatinine) jg10 test not completed at this time. IV insertion attempt and/or patient not having appropriate IV at this time. 14:00 Bia Cano, RN is Primary Nurse. mb9 14:00 Patient's name was called from ER lobby. No response. aa5 14:09 Patient's name was called from ER lobby. No response. aa5 14:30 Patient's name was called from ER lobby. No response. aa5 15:00 Patient's name was called from ER lobby. No response. aa5 Administered Medications: No medications were administered Outcome: 15:30 Discharge ordered by MD. rt 15:30 Patient left the ED. aa5 15:30 Eloped from waiting room, after seeing physician Time discovered patient gone: October 042022 at 14:00 Signatures: Reva Lerma, RN RN aa5 Nallely Ochoa Juliet j0 Bia Cano, RN RN mb9 Claus Quiroz MD MD rt Rhoda Marlow RN RN nj1 Corrections: (The following items were deleted from the chart) 17:26 15:57 Patient left the ED. aa5 aa5
--- NOTE | 2022-10-04 15:30 | EDPHYS ---
Physician Documentation [facility] Name: Feliciano Blair Age: 37 yrs Sex: Female : 1985 Arrival Date: 10/04/2022 Time: 12:05 Bed IW1 Private MD: ED Physician Claus Quiroz HPI: 10/04 15:46 This 37 yrs old Female presents to ER via Ambulatory with complaints of rt Headache, Nausea/Vomiting, Back Pain. 15:46 Patient presents to the ED with epigastric pain rating to the back with associated rt nausea, vomiting. Patient woke up feeling this way. She has associated body aches, headache. The patient denies other acute complaints at this time. Symptoms are moderate in severity, aching nature, not otherwise radiating, no other aggravating or alleviating factors.. Historical: - Allergies: 13:13 No Known Allergies; nj1 - PMHx: 13:13 Migraine; Pancreatitis; nj1 - PSHx: 13:13 Cholecystectomy; gastric sleeve; nj1 - Immunization history:: Client reports having NOT received the Covid vaccine. - Social history:: Smoking status: Patient denies any tobacco usage or history of. - Family history:: not pertinent. ROS: 15:46 Constitutional: Negative for fever, chills, and weight loss, Cardiovascular: Negative rt for chest pain, palpitations, and edema, Respiratory: Negative for shortness of breath, cough, wheezing, and pleuritic chest pain, MS/Extremity: Negative for injury and deformity, Skin: Negative for injury, rash, and discoloration, Psych: Negative for depression, anxiety, suicide ideation, homicidal ideation, and hallucinations. 15:46 Abdomen/GI: Positive for abdominal pain, nausea and vomiting. 15:46 Back: Positive for pain at rest, Negative for injury or acute deformity. 15:46 Neuro: Positive for headache, Negative for altered mental status. Exam: 15:46 Constitutional: This is a well developed, well nourished patient who is awake, alert, rt and in no acute distress. Head/Face: Normocephalic, atraumatic. Chest/axilla: Normal chest wall appearance and motion. Nontender with no deformity. No lesions are appreciated. Cardiovascular: Regular rate and rhythm with a normal S1 and S2. No gallops, murmurs, or rubs. Normal PMI, no JVD. No pulse deficits. Respiratory: Lungs have equal breath sounds bilaterally, clear to auscultation and percussion. No rales, rhonchi or wheezes noted. No increased work of breathing, no retractions or nasal flaring. Skin: Warm, dry with normal turgor. Normal color with no rashes, no lesions, and no evidence of cellulitis. MS/ Extremity: Pulses equal, no cyanosis. Neurovascular intact. Full, normal range of motion. Neuro: Awake and alert, GCS 15, oriented to person, place, time, and situation. Cranial nerves II-XII grossly intact. Motor strength 5/5 in all extremities. Sensory grossly intact. Cerebellar exam normal. Normal gait. Psych: Awake, alert, with orientation to person, place and time. Behavior, mood, and affect are within normal limits. 15:46 Abdomen/GI: Tenderness to the epigastrium without rebound, guarding, distention. Vital Signs: 13:11 BP 132 / 88; Pulse 88; Resp 18; Temp 98.6(TE); Pulse Ox 100% ; Weight 74.84 kg; Height nj1 5 ft. 5 in. ; Pain 10/10; 13:11 Body Mass Index 27.46 (74.84 kg, 165.1 cm) nj1 13:11 Pain Scale: Adult nj1 MDM: 13:14 Patient medically screened. rt 15:46 Differential diagnosis: Appendicitis, pancreatitis, gastroenteritis. Data reviewed: rt vital signs, nurses notes. ED course: Patient eloped from the waiting room without informing staff. I was unable to discuss risk and benefits of leaving.. Administered Medications: No medications were administered Disposition Summary: 10/04/22 15:30 Discharge Ordered Location: Home rt Problem: new rt Symptoms: are unchanged rt Condition: Undetermined rt Diagnosis - Abdominal pain, unspecified rt - Nausea rt Followup: rt - With: Private Physician - When: 2 - 3 days - Reason: Forms: - Medication Reconciliation Form rt - Thank You Letter rt - Antibiotic Education rt - Prescription Opioid Use rt Signatures: Dispatcher [employer] EDMS Claus Qurioz MD MD rt Rhoda Marlow RN RN nj1 Corrections: (The following items were deleted from the chart) 15:09 13:20 Abdomen Pelvis W Con+CT.RAD.BRZ ordered. EDMS EDMS
[2022-10-04 16:26] VITALS: BP 132/88; TEMP 98.6; O2SAT 100
== END 2022-10-04 15:57 | disposition home or self-care (01) ==
LOC: ER 12:05
DX: R10.13 Epigastric pain (principal); R11.0 Nausea

== ENCOUNTER 2024-06-06 11:28 | Emergency (ER) | payer SELFPAY ==
[2024-06-06] MEDS ORDERED: METHYLPREDNISOLONE 125 MG INJ ONE (11:46)
[2024-06-06 12:16] LABS: SARS-CoV-2 Antigen CONTROL BLUE LINE VIS/BG OK; SARS-CoV-2 Antigen Rapid Res Negative (Negative)
--- NOTE | 2024-06-06 13:14 | EDPHYS ---
Physician Documentation [facility] Name: Feliciano Blair Age: 38 yrs Sex: Female : 1985 Arrival Date: 06/06/2024 Time: 11:28 Bed 5 Private MD: ED Physician Dane Hatfield HPI: 06/06 12:10 This 38 yrs old Female presents to ER via Ambulatory with complaints of Lips rn Swelling, ITCHY THROAT. 12:10 The patient presents with Itching. Onset: The symptoms/episode began/occurred 2 day(s) rn ago. Modifying factors: The symptoms are alleviated by nothing, the symptoms are aggravated by nothing, Patient's oral intake status: good. The patient has not experienced similar symptoms in the past. Patient reports exposed to flu, sick for the last 2 days with fever, response to medication, took some Zicam nasal swabs and started to notice itching of the throat and subjective swelling of the lips. No shortness of breath or vomiting. Has never had allergic reaction before.. PUMPMAN: 11:38 LMP 06/04/2024, unknown ko1 Historical: - Allergies: 11:38 Bees; ko1 - Home Meds: 11:38 Unable to obtain [Active]; ko1 - PMHx: 11:38 Migraine; Pancreatitis; ko1 - PSHx: 11:38 Cholecystectomy; gastric sleeve; ko1 - Immunization history:: Adult Immunizations up to date. - Infectious Disease History:: Denies. - Social history:: Smoking status: Patient denies any tobacco usage or history of. - Family history:: not pertinent. - Hospitalizations: : No recent hospitalization is reported. ROS: 12:10 Constitutional: Positive for fever and chills ENT: Positive itchy throat radiology rn: Negative for chest pain, palpitations, and edema, Respiratory: Positive for cough, negative for shortness of breath Abdomen/GI: Negative for abdominal pain, nausea, vomiting, diarrhea, and constipation, MS/Extremity: Negative for injury and deformity, Skin: Negative for injury, rash, and discoloration, Neuro: Positive for generalized weakness and malaise Exam: 12:10 Constitutional: This is a well developed, well nourished patient who is awake, alert, rn and in no acute distress. Head/Face: Normocephalic, atraumatic. ENT: No stridor, no intraoral lesions noted, mild pharyngeal erythema Neck: No neck swelling. No meningismus. Cardiovascular: Regular rate and rhythm. No pulse deficits. Respiratory: No increased work of breathing, no retractions or nasal flaring. Skin: No rash or urticaria MS/ Extremity: Pulses equal, no cyanosis. Neurovascular intact. Full, normal range of motion. Equal circumference. Neuro: Awake and alert, GCS 15 Vital Signs: 11:33 BP 130 / 84; Pulse 94; Resp 17; Temp 97.6; Pulse Ox 100% on R/A; ko1 MDM: 11:32 Medical Screening Exam initiated rn 13:12 Differential diagnosis: group A strep tonsillitis, influenza, pharyngitis, allergic rn reaction, SARS. Data reviewed: vital signs, nurses notes, lab test result(s), and as a result, I will discharge patient. Counseling: I had a detailed discussion with the patient and/or guardian regarding the historical points, exam findings, and any diagnostic results supporting the discharge/admit diagnosis, lab results, the need for outpatient follow up, to return to the emergency department if symptoms worsen or persist or if there are any questions or concerns that arise at home. Response to treatment: the patient's symptoms have markedly improved after treatment, and as a result, I will discharge patient. Special discussion: I discussed with the patient/guardian in detail that at this point there is no indication for admission to the hospital. It is understood, however, that if the symptoms persist or worsen the patient needs to return immediately for re-evaluation. 06/06 11:40 Order name: Strep rn 06/06 11:40 Order name: Flu; Complete Time: 13:10 rn 06/06 11:40 Order name: SARS-COV-2 Antigen Rapid; Complete Time: 13:10 rn 06/06 12:17 Order name: Throat Culture EDMS Administered Medications: 11:53 Drug: MethylPREDNISolone Sodium Succinate IM 125 mg IM once Route: IM; Site: left aa5 gluteus; 13:19 Follow up: Response: No adverse reaction ss Disposition Summary: 06/06/24 13:13 Discharge Ordered Notes: Location: Home rn Problem: new rn Symptoms: have improved rn Condition: Stable rn Diagnosis - Acute upper respiratory infection, unspecified rn Followup: rn - With: Private Physician - When: As needed - Reason: Recheck today's complaints, Re-evaluation by your physician Discharge Instructions: - Discharge Summary Sheet rn - Upper Respiratory Infection, Adult rn Forms: - Medication Reconciliation Form rn - Antibiotic loft patternmaker - Prescription Opioid Use rn - Patient Portal Instructions rn - Leadership Thank You Letter rn - Work release form ss Prescriptions: - Augmentin 875-125 mg Oral Tablet - take 1 tablet ORAL route every 12 hours for 10 days; 20 tablet; Refills: 0, rn Product Selection Permitted - Prednisone 20 mg Oral Tablet - take 3 tablets ORAL route once daily for 5 days; 15 tablet; Refills: 0, Product rn Selection Permitted Signatures: Dispatcher [employer] EDDane Smallwood MD MD rn Calderon, Audri, RN RN aa5 Henrietta Soliman RN RN ko1 Mely Rodriguez RN ss
--- NOTE | 2024-06-06 13:14 | ER ---
Nurse's Notes [facility] Name: Feliciano Blair Age: 38 yrs Sex: Female : 1985 Arrival Date: 06/06/2024 Time: 11:28 Bed 5 Private MD: Diagnosis: Acute upper respiratory infection, unspecified Presentation: 06/06 11:33 Chief complaint: Patient states: been having fever and body aches for 2 days, daughter cleve is positive for flu, took zicam nasally yesterday at 1500, took benadryl but lips are swollen throat is itchy. Coronavirus screen: At this time, the client does not indicate any symptoms associated with coronavirus-19. Ebola Screen: No symptoms or risks identified at this time. Initial Sepsis Screen: Does the patient meet any 2 criteria? No. Patient's initial sepsis screen is negative. Does the patient have a suspected source of infection? No. Patient's initial sepsis screen is negative. Risk Assessment: Do you want to hurt yourself or someone else? Patient reports no desire to harm self or others. Onset of symptoms was June 06, 2024. 11:33 Method Of Arrival: Ambulatory ko1 11:33 Acuity: JOSE 4 ko1 Triage Assessment: 11:38 General: Appears in no apparent distress. Behavior is calm, cooperative, appropriate ko1 for age. Pain: Complains of pain in generalized body aches. 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 - Infectious Disease History:: Denies. - Social history:: Smoking status: Patient denies any tobacco usage or history of. - Family history:: not pertinent. - Hospitalizations: : No recent hospitalization is reported. Screenin:01 [facility] ED Fall Risk Assessment (Adult) History of falling in the last 3 months, iw including since admission No falls in past 3 months (0 pts) Confusion or Disorientation No (0 pts) Intoxicated or Sedated No (0 pts) Impaired Gait No (0 pts) Mobility Assist Device Used No (0 pt) Altered Elimination No (0 pt) Score/Fall Risk Level 0 - 2 = Low Risk. Abuse screen: Denies injuries from another. Nutritional screening: No deficits noted. Tuberculosis screening: No symptoms or risk factors identified. Assessment: 11:45 General: Appears comfortable, Behavior is calm, cooperative, Mild swelling noted to aa5 upper lip, pt also c/o body aches and chills . Pain: Complains of pain in throat. Neuro: Level of Consciousness is awake, alert, obeys commands, Oriented to person, place, time, situation. Cardiovascular: Patient's skin is warm and dry. Respiratory: Airway is patent Respiratory effort is even, unlabored, Respiratory pattern is regular, symmetrical. GI: No signs and/or symptoms were reported involving the gastrointestinal system. : No signs and/or symptoms were reported regarding the genitourinary system. EENT: Reports pain in throat . Derm: Skin is pink, warm \T\ dry. Musculoskeletal: Range of motion: intact in all extremities. 11:53 Reassessment: Patient is alert, oriented x 3, equal unlabored respirations, skin aa5 warm/dry/pink. 12:00 General: Appears in no apparent distress. Behavior is calm, cooperative. iw 12:00 Pain: Complains of pain in throat. Neuro: Level of Consciousness is awake, alert, obeys iw commands, Oriented to person, place, time, situation, Moves all extremities. Full function. Cardiovascular: Patient's skin is warm and dry. Respiratory: Respiratory effort is even, unlabored, Respiratory pattern is regular, symmetrical. Derm: Skin is intact, is healthy with good turgor. Musculoskeletal: Range of motion: intact in all extremities. 13:18 Reassessment: Patient appears in no apparent distress at this time. Patient and/or ss family updated on plan of care and expected duration. Pain level reassessed. Vital Signs: 11:33 BP 130 / 84; Pulse 94; Resp 17; Temp 97.6; Pulse Ox 100% on R/A; ko1 ED Course: 11:32 Patient arrived in ED. sj2 11:32 Dane Hatfield MD is Attending Physician. rn 11:38 Triage completed. ko1 11:38 Arm band placed on right wrist. Patient placed in an exam room, on a stretcher, on ko1 pulse oximetry, Patient notified of wait time. 11:40 Reva Lerma, RN is Primary Nurse. aa5 11:45 Patient has correct armband on for positive identification. Bed in low position. Call aa5 light in reach. Side rails up X 1. 12:01 No provider procedures requiring assistance completed. Patient did not have IV access iw during this emergency room visit. Administered Medications: 11:53 Drug: MethylPREDNISolone Sodium Succinate IM 125 mg IM once Route: IM; Site: left aa5 gluteus; 13:19 Follow up: Response: No adverse reaction ss Medication: 11:53 VIS not applicable for this client. aa5 Outcome: 13:13 Discharge ordered by . rn 13:18 Discharged to home ambulatory, ss 13:18 Condition: good 13:18 Discharge instructions given to patient, Instructed on discharge instructions, follow up and referral plans. medication usage, Demonstrated understanding of instructions, follow-up care, medications, Prescriptions given X 2, 13:19 Patient left the ED. ss Signatures: Codi Barbosa RN RN Dane Hatfield MD MD rn Calderon, Audri, RN RN aa5 Mely Rodriguez RN RN ss Henrietta Soliman RN RN ko1 Will Bass sj2 Corrections: (The following items were deleted from the chart) 12:01 12:00 General: Appears in no apparent distress. Behavior is calm, cooperative, iw iw
[2024-06-06 14:40] VITALS: BP 130/84; TEMP 97.6; O2SAT 100
== END 2024-06-06 13:19 | disposition home or self-care (01) ==
LOC: ER 11:28
DX: J06.9 Acute upper respiratory infection, unspecified (principal); Z11.52 Encounter for screening for COVID-19
CPT/HCPCS: 36415; 87070; 87081; 87804; 87811; 96372; 99284; J2919